=== PATIENT | female | born 1945 | race Caucasian/White ===

== ENCOUNTER 2016-10-14 21:10 | Inpatient (IN) | payer OTHER, MEDICARE ==
[~2016-10-14] VITALS: Ht 152.4 cm; Wt 80.0 kg
[~2016-10-14 21:10] MED LIST: CARV3.125 PO; CITA20TA4 PO; GABA300C3 PO; HYDR10SO PO; LIPI80TA16 PO; LISI-357 PO; LORA0.5T PO; LORTA5 PO; METF500 PO; NOVO7030P2 SQ; OXYC1SOL5 PO; PROT40TA PO; ROPI.25 PO; WALKER STANDARD
[2016-10-14] MEDS ORDERED: SODIUM CHLOR 0.9% 1000 ML INJ 1,000 ML IV ONE (21:16)
[2016-10-14] MEDS ORDERED: VANCOMYCIN INJ 1,000 MG in SODIUM CHLOR 0.9% 250 ML INJ 250 ML IV STA (21:16)
[2016-10-14] MEDS ORDERED: PIPERACIL-TAZO 4.5 GM PREMIX 100 ML IV STA (21:16)
--- NOTE | 2016-10-14 21:22 | PD ---
HPI Chief Complaint: nausea Time Seen by Provider: 21:16 Travel History International Travel<30 days: No Contact w/Intl Traveler<30days: No Traveled to known affect area: No History of Present Illness HPI 71-year-old female with history of diabetes, status post left leg BKA, presents to the ER today because she states that for about a week her left leg stump has developed an ulcer which has not been healing, has been draining fluid, and she has been nauseous and not feeling well. Her blood sugars have been fairly elevated. According to EMS, her blood sugar was read as "high". She has not vomited, denies abdominal pain, fevers, chest pains, shortness of breath, or any other issues. Modifying Factors: None Associated Signs & Symptoms: Poorly healing left leg ulcer for the past week, nausea, elevated blood sugars Risk Factors: Diabetes PFSH Past Medical History Hx Anticoagulant Therapy: Yes Arthritis: Yes Asthma: Yes Autoimmune Disease: No Anxiety: Yes Depression: Yes Heart Rhythm Problems: No Cancer: No Cardiac Catheterization: Yes Cardiovascular Problems: Yes High Cholesterol: Yes Chemotherapy: No Chest Pain: Yes Congestive Heart Failure: No COPD: No Diabetes: Yes Diminished Hearing: No Endocrine: No Gastrointestinal Disorders: Yes GERD: Yes Genitourinary: No Hiatal Hernia: No Hypertension: Yes Immune Disorder: No Musculoskeletal: Yes (RESTLESS LEG SYNDROME) Neurologic: No Psychiatric: Yes Reproductive: No Respiratory: No Integumentary: Yes (WOUND TO LEFT FOOT.) Myocardial Infarction: Yes (05/2013) Radiation Therapy: No Sickle Cell Disease: No Sleep Apnea: No Thyroid Disease: No Ulcer: No Menopausal: Yes Past Surgical History AICD: No Body Medical Devices: 2 Stents Cardiac Surgery: No Coronary Stent: Yes (X 2 - 05/2013 & 07/2013) Ear Surgery: No Endocrine Surgery: No Eye Surgery: No Genitourinary Surgery: No Gynecologic Surgery: No Insulin Pump: No Joint Replacement: No Oral Surgery: No Pacemaker: No Thoracic Surgery: No Other Surgery: Yes Social History Alcohol Use: No Tobacco Use: No Substance Use: No Allergies-Medications (Allergen,Severity, Reaction): Coded Allergies: Sulfa (Verified Allergy, Severe, Irritability/Anxiety, 10/14/16) Reported Meds & Prescriptions Reported Meds & Active Scripts Active Reported Novolog Inj (Insulin Aspart) 1,000 Unit/10 Ml Vial Unknown Dose SQ ACHS Max dose at bedtime:( )units; sugars less than 70,(0)units; sugars 150-199,(1) unit; sugars 200-249,(3) units; sugars 250-299,(5) units; sugars 300-349,(7) units; sugars greater than 349,(9) units Atorvastatin (Atorvastatin Calcium) 80 Mg Tab 80 Mg PO HS Coreg (Carvedilol) 3.125 Mg Tab 3.125 Mg PO BID Citalopram (Citalopram Hydrobromide) 10 Mg Tab 10 Mg PO DAILY Gabapentin 300 Mg Cap 300 Mg PO TID Novolin 70-30 Inj (Insulin Human Isoph/Insulin Regular) 1,000 Unit/10 Ml Vial 8 Units SQ BID Lisinopril 5 Mg Tab 5 Mg PO DAILY Lorazepam 0.5 Mg Tab 0.5 Mg PO HS Metformin (Metformin HCl) 500 Mg Tab 500 Mg PO BIDPC With meals Pantoprazole (Pantoprazole Sodium) 40 Mg Tab 40 Mg PO DAILY Requip (Ropinirole HCl) 0.25 Mg Tab 0.25 Mg PO HS Review of Systems Except as stated in HPI: all other systems reviewed are Neg Physical Exam Narrative GENERAL: Well-developed pleasant elderly white female patient currently in mild distress. Awake and oriented 3. SKIN: Focused skin assessment warm/dry. There is a 2 cm round ulcer at the distal end of the left leg stump with a small amount of yellowish drainage. Mildly tender to palpation. No underlying fluctuance. HEAD: Atraumatic. Normocephalic. EYES: Pupils equal and round. No scleral icterus. No injection or drainage. ENT: No nasal bleeding or discharge. Mucous membranes pink and moist. NECK: Trachea midline. No JVD. CARDIOVASCULAR: Regular rate and rhythm. No murmur appreciated. RESPIRATORY: No accessory muscle use. Clear to auscultation. Breath sounds equal bilaterally. GASTROINTESTINAL: Abdomen soft, non-tender, nondistended. Hepatic and splenic margins not palpable. MUSCULOSKELETAL: No obvious deformities. No clubbing. No cyanosis. No edema. NEUROLOGICAL: Awake and alert. No obvious cranial nerve deficits. Motor grossly within normal limits. Normal speech. PSYCHIATRIC: Appropriate mood and affect; insight and judgment normal. Data Data Last Documented VS Vital Signs Date Time Temp Pulse Resp B/P Pulse Ox O2 Delivery O2 Flow Rate FiO2 10/14/16 23:17 89 18 152/66 96 Room Air 10/14/16 21:30 99.1 Orders Electrocardiogram (10/14/16 21:16) Complete Blood Count With Diff (10/14/16 21:16) Comprehensive Metabolic Panel (10/14/16 21:16) Prothrombin Time / Inr (Pt) (10/14/16 21:16) Act Partial Throm Time (Ptt) (10/14/16 21:16) Lactic Acid Sepsis Protocol (10/14/16 21:16) Lipase (10/14/16 21:16) Ckmb (Isoenzyme) Profile (10/14/16 21:16) Troponin I (10/14/16 21:16) Urinalysis - C+S If Indicated (10/14/16 21:16) Blood Culture (10/14/16 21:16) Wound Culture And Gram Stain (10/14/16 21:16) Blood Glucose (10/14/16 21:16) Ecg Monitoring (10/14/16 21:16) Iv Access Insert/Monitor (10/14/16 21:16) Oximetry (10/14/16 21:16) Oxygen Administration (10/14/16 21:16) Ondansetron Inj (Zofran Inj) (10/14/16 21:30) Piperacil-Tazo 4.5 Gm Premix (Zosyn 4.5 (10/14/16 21:16) Vancomycin Inj (Vancomycin Inj) (10/14/16 21:16) Sodium Chlor 0.9% 1000 Ml Inj (Ns 1000 M (10/14/16 21:16) Tibia/Fibula (Ap/Lat) (10/14/16 21:16) Insulin Human Regular Inj (Novolin R Inj (10/14/16 22:45) Urine Culture (10/14/16 23:20) Acetamin-Hydrocod 325-5 Mg ([place] 5-325 (10/15/16 00:00) Labs Laboratory Tests Test 10/14/16 10/14/16 21:30 23:20 White Blood Count 7.0 TH/MM3 Red Blood Count 3.92 MIL/MM3 Hemoglobin 10.6 GM/DL Hematocrit 33.6 % Mean Corpuscular Volume 85.7 FL Mean Corpuscular Hemoglobin 27.1 PG Mean Corpuscular Hemoglobin 31.7 % Concent Red Cell Distribution Width 14.5 % Platelet Count 199 TH/MM3 Mean Platelet Volume 9.3 FL Neutrophils (%) (Auto) 65.3 % Lymphocytes (%) (Auto) 23.9 % Monocytes (%) (Auto) 8.7 % Eosinophils (%) (Auto) 1.1 % Basophils (%) (Auto) 1.0 % Neutrophils # (Auto) 4.6 TH/MM3 Lymphocytes # (Auto) 1.7 TH/MM3 Monocytes # (Auto) 0.6 TH/MM3 Eosinophils # (Auto) 0.1 TH/MM3 Basophils # (Auto) 0.1 TH/MM3 CBC Comment DIFF FINAL Differential Comment Prothrombin Time 10.1 SEC Prothromb Time International 0.9 RATIO Ratio Activated Partial 26.2 SEC Thromboplast Time Sodium Level 131 MEQ/L Potassium Level 3.7 MEQ/L Chloride Level 94 MEQ/L Carbon Dioxide Level 25.1 MEQ/L Anion Gap 12 MEQ/L Blood Urea Nitrogen 18 MG/DL Creatinine 1.20 MG/DL Estimat Glomerular Filtration 45 ML/MIN Rate Random Glucose 543 MG/DL Lactic Acid Level 0.9 mmol/L Calcium Level 8.2 MG/DL Total Bilirubin 0.4 MG/DL Aspartate Amino Transf 8 U/L (AST/SGOT) Alanine Aminotransferase 11 U/L (ALT/SGPT) Alkaline Phosphatase 74 U/L Total Creatine Kinase 58 U/L Troponin I LESS THAN 0.02 NG/ML Total Protein 6.7 GM/DL Albumin 2.6 GM/DL Lipase 180 U/L Urine Color LIGHT-YELLOW Urine Turbidity CLEAR Urine pH 5.0 Urine Specific [place] 1.027 Urine Protein NEG mg/dL Urine Glucose (UA) 1000 mg/dL Urine Ketones NEG mg/dL Urine Occult Blood NEG Urine Nitrite POS Urine Bilirubin NEG Urine Urobilinogen LESS THAN 2.0 MG/DL Urine Leukocyte Esterase NEG Urine RBC LESS THAN 1 /hpf Urine WBC 3 /hpf Urine Bacteria RARE /hpf Urine Mucus FEW /lpf Microscopic Urinalysis Comment CATH-CULTURE IND MDM Medical Decision Making Medical Screen Exam Complete: Yes Emergency Medical Condition: Yes Medical Record Reviewed: Yes Interpretation(s) Laboratory Tests Test 10/14/16 10/14/16 21:30 23:20 Red Blood Count 3.92 MIL/MM3 (4.00-5.30) Hemoglobin 10.6 GM/DL (11.6-15.3) Hematocrit 33.6 % (35.0-46.0) Mean Corpuscular Hemoglobin 31.7 % Concent (32.0-36.0) Monocytes (%) (Auto) 8.7 % (0.0-8.0) Sodium Level 131 MEQ/L (136-145) Chloride Level 94 MEQ/L (98-107) Creatinine 1.20 MG/DL (0.50-1.00) Estimat Glomerular Filtration 45 ML/MIN (>89) Rate Random Glucose 543 MG/DL (74-106) Calcium Level 8.2 MG/DL (8.5-10.1) Aspartate Amino Transf 8 U/L (15-37) (AST/SGOT) Troponin I LESS THAN 0.02 NG/ML (0.02-0.05) Albumin 2.6 GM/DL (3.4-5.0) Urine Glucose (UA) 1000 mg/dL (NEG) Urine Nitrite POS (NEG) Urine Bacteria RARE /hpf (NONE) Urine Mucus FEW /lpf (OCC) Last 24 hours Impressions Tibia/Fibula X-Ray 10/14/162115 Signed Impressions: Service Date/Time: Friday, October 14, 2016 21:50 - CONCLUSION: Left below knee amputation. Nonspecific edema of the stump soft tissues without an acute bony abnormality. Edward Cheng MD Differential Diagnosis Left leg ulcer, nausea, elevated blood sugarmetabolic issues versus sepsis versus osteomyelitis versus dehydration Narrative Course She does appear to have open ulcer of the left stump and underlying cellulitis without underlying osteomyelitis seen on x-ray. Lab work did not indicate significant lactate elevation or leukocytosis. IV antibiotics have been given after cultures have been drawn. Her lab work does show significant hyperglycemia and IV fluids and insulin was given. At this point, my plan would be to admit the patient for further treatment of both issues. The case was discussed with Dr. Baxter for admission. Diagnosis Primary Impression: Infection of amputation stump, left lower extremity Additional Impression: Hyperglycemia Admitting Information Admitting Physician Requests: Admit Vin Pineda MD October 14, 2016 21:22
[2016-10-14 21:28] VITALS: BP 152/66; PULSE 93; RESP 18; TEMP 99.1; O2SAT 95
[2016-10-14 21:30] VITALS: TEMP 99.1; O2SAT 100
[2016-10-14] MEDS ORDERED: ONDANSETRON HCL 4 MG/2 ML VIAL IV ONE (21:30)
[2016-10-14 21:57] LABS: AUTOMATED NEUTROPHIL # 4.6 TH/MM3 (1.8-7.7); BASOPHIL # 0.1 TH/MM3 (0-0.2); EOSINOPHIL # 0.1 TH/MM3 (0-0.4); EOSINOPHIL % 1.1 % (0.0-4.0); HEMATOCRIT 33.6 % (35.0-46.0); HEMO FLAGS DIFF FINAL; LYMPH % 23.9 % (9.0-44.0); LYMPHOCYTE # 1.7 TH/MM3 (1.0-4.8); MEAN CELL VOLUME 85.7 FL (80.0-100.0); MEAN CORPUSCULAR HEMOGLOBIN 27.1 PG (27.0-34.0); MEAN CORPUSCULAR HGB CONC 31.7 % (32.0-36.0); MONO % 8.7 % (0.0-8.0); NEUT % 65.3 % (16.0-70.0); PLATELET COUNT 199 TH/MM3 (150-450); RED BLOOD COUNT 3.92 MIL/MM3 (4.00-5.30); RED CELL DISTRIBUTION WIDTH 14.5 % (11.6-17.2)
--- NOTE | 2016-10-14 22:00 | RADRPT ---
EXAM DATE/TIME: 10/14/2016 21:50 [facility] COMPARISON: No previous studies available for comparison. INDICATIONS : Ulceration, pain at distal end of left below the knee amputaion MEDICAL HISTORY : Diabetes mellitus type II. SURGICAL HISTORY : None. ENCOUNTER: Initial ACUITY: 2 weeks PAIN SCORE: 8/10 LOCATION: Left distal lower leg FINDINGS: Patient has had previous amputation 15 cm below the knee. There is soft tissue edema of the stump. No radiopaque foreign body. No acute cortical destruction demonstrated. CONCLUSION: Left below knee amputation. Nonspecific edema of the stump soft tissues without an acute bony abnorma lity. Edward Cheng MD on October 14, 2016 at 21:57 Board Certified Radiologist. This report was verified electronically.
[2016-10-14 22:25] LABS: ALT (GPT) 11 U/L (10-53); ANION GAP 12 MEQ/L (5-15); AST (GOT) 8 U/L (15-37); BICARBONATE 25.1 MEQ/L (21.0-32.0); BLOOD UREA NITROGEN 18 MG/DL (7-18); CHLORIDE 94 MEQ/L (98-107); GLOMERULAR FILTRATION RATE 45 ML/MIN (>89); POTASSIUM 3.7 MEQ/L (3.5-5.1); SODIUM (NA) 131 MEQ/L (136-145); TOTAL BILIRUBIN ADULT 0.4 MG/DL (0.2-1.0)
[2016-10-14] MEDS ORDERED: ROPI.25 PO (22:29)
[2016-10-14] MEDS ORDERED: LORA-373 PO (22:29)
[2016-10-14] MEDS ORDERED: PANT40TA3 PO (22:29)
[2016-10-14] MEDS ORDERED: ATOR1TAB18 PO (22:29)
[2016-10-14] MEDS ORDERED: CITA10TA4 PO (22:29)
[2016-10-14] MEDS ORDERED: NOVO7030P2 SQ (22:29)
[2016-10-14] MEDS ORDERED: LISI-519 PO (22:29)
[2016-10-14] MEDS ORDERED: GABA300C5 PO (22:29)
[2016-10-14] MEDS ORDERED: METF500T PO (22:29)
[2016-10-14] MEDS ORDERED: CARV3.125 PO (22:29)
[2016-10-14] MEDS ORDERED: NOVOLOGP2 SQ (22:30)
[2016-10-14 22:34] LABS: ALKALINE PHOSPHATASE 74 U/L (45-117); CREATINE KINASE 58 U/L (26-192)
[2016-10-14 22:35] LABS: APTT (PATIENT) 26.2 SEC (24.3-30.1); INTERNATIONAL NORMALIZED RATIO 0.9 RATIO; PROTHROMBIN TIME - PATIENT 10.1 SEC (9.8-11.6)
[2016-10-14] MEDS ORDERED: INSULIN HUMAN REGULAR 1,000 UNITS/10 ML VIAL IV PUSH ONE (22:45)
[2016-10-14 23:17] VITALS: BP 152/66; PULSE 89; RESP 18; O2SAT 96
[2016-10-14 23:40] LABS: BACTERIA, URINE RARE /hpf; BLOOD, URINE NEG (NEG); GLUCOSE,URINE 1000 mg/dL (NEG); KETONE, URINE NEG (NEG); MUCUS URINE FEW /lpf (OCC); URINE COLOR LIGHT-YELLOW (YELLW/STRAW)
[2016-10-14 23:43] LABS: COMMENT (UR) CATH-CULTURE IND; CULTURE IF INDICATED CATH CULTURE IND; NITRITE,URINE POS (NEG)
[2016-10-15] MEDS ORDERED: ACETAMINOPHEN/HYDROcodone 325 MG/5 MG TAB PO ONE
[2016-10-15] MEDS ORDERED: SODIUM CHLOR 0.9% 1000 ML INJ 1,000 ML IV SCH (01:17)
[2016-10-15] MEDS ORDERED: SODIUM CHLORIDE 0.9% FLUSH 10 ML FLUSH IV FLUSH PRN (01:30)
[2016-10-15] MEDS ORDERED: MORPHINE SULFATE 4 MG/ML INJ IV PRN (01:30)
[2016-10-15] MEDS ORDERED: DEXTROSE 50% IN WATER 50 ML VIAL(D50) IV PRN (01:30)
[2016-10-15] MEDS ORDERED: BISACODYL 10 MG SUPP RECTAL PRN (01:30)
[2016-10-15] MEDS ORDERED: ACETAMINOPHEN/HYDROcodone 325 MG/5 MG TAB PO PRN (01:30)
[2016-10-15] MEDS ORDERED: GLUCAGON 1 MG/ML VIAL OTHER PRN (01:30)
[2016-10-15] MEDS ORDERED: Vancomycin Consult Pharmacy 1 EA OTHER SCH (01:30)
[2016-10-15] MEDS ORDERED: ONDANSETRON HCL 4 MG/2 ML VIAL IVP PRN (01:30)
[2016-10-15] MEDS ORDERED: ACETAMINOPHEN 325 MG TAB PO PRN (01:30)
[2016-10-15 02:02] VITALS: BP 122/58; PULSE 85; RESP 18; TEMP 99.2; O2SAT 95
--- NOTE | 2016-10-15 02:19 | HHI.HP ---
[facility]Staff Admission Diagnosis left leg stump infection/hyperglycemia Diagnoses: (1) Infection of amputation stump, left lower extremity Diagnosis: Principal (2) UTI (urinary tract infection) Diagnosis: Principal (3) DM (diabetes mellitus) Diagnosis: Principal (4) WILLIE (acute kidney injury) Diagnosis: Principal Travel History International Travel<30 Days: No Contact w/Intl Traveler <30 Da: No Traveled to Known Affected Are: No History of Present Illness This is a 71-year-old female with PMH of Anxiety, Depression, HTN, Hyperlipidemia, PVD, h/o Left BKA and Phantom Leg Pain who was brought to the ER by EMS w/ complaints of left stump pain and drainage from wound x2 wks. States she has been unable to use prosthesis due to pain. Denies fever, chills or other symptoms. On arrival, BP 122/66, HR 93, O2 sat 95% on RA, Temp 99.1. WBC normal. Creatinine 1.20, previously 0.77 on 03/06/15. BS 543. Lactic Acid normal. Troponin negative. UA with mild UTI. Tibia/Fibula X-ray showing left below knee amputation, nonspecific edema of stump soft tissues without acute bony abnormality. S/p Wound/Blood Cultures in ER and IV Zosyn. Review of Systems Except as stated in HPI: all other systems reviewed are Neg ROS: 14 point review of systems otherwise negative. Past Family Social History Past Medical History PMH: Anxiety, Depression, HTN, Hyperlipidemia, PVD, h/o Left BKA and Phantom Leg Pain Past Surgical History PAST SURGICAL HISTORY: Cardiac Stents, Left BKA Allergies: Coded Allergies: Sulfa (Verified Allergy, Severe, Irritability/Anxiety, 10/14/16) Family History PAST FAMILY HISTORY: Reviewed. No h/o DM or CAD Social History PAST SOCIAL HISTORY: Negative for alcohol, tobacco or drugs. Physical Exam Vital Signs Vital Signs Date Time Temp Pulse Resp B/P Pulse Ox O2 Delivery O2 Flow Rate FiO2 10/15/16 02:02 99.2 85 18 122/58 95 Room Air 10/14/16 23:17 89 18 152/66 96 Room Air 10/14/16 22:11 18 10/14/16 21:30 100 Room Air 10/14/16 21:30 99.1 100 Room Air 10/14/16 21:28 99.1 93 18 152/66 95 Physical Exam PE: GENERAL: Middle-aged white female in no acute distress. HEENT: PERRLA, EOMI. No scleral icterus or conjunctival pallor. No lid lag or facial droop. CARDIOVASCULAR: Regular rate and rhythm. No obvious murmurs to auscultation. No chest tenderness to palpation. RESPIRATORY: No obvious rhonchi or wheezing. Clear to auscultation. Breath sounds equal bilaterally. GASTROINTESTINAL: Abdomen soft, non-tender, nondistended. BS normal. MUSCULOSKELETAL: Left stump intact, small ulcer at distal region of stump, serous drainage, mild surrounding erythema. NEUROLOGICAL: Awake, alert and oriented x4. No focal neurologic deficits. Moving both upper and lower extremities spontaneously. Laboratory Laboratory Tests Test 10/14/16 10/14/16 21:30 23:20 White Blood Count 7.0 Red Blood Count 3.92 Hemoglobin 10.6 Hematocrit 33.6 Mean Corpuscular Volume 85.7 Mean Corpuscular Hemoglobin 27.1 Mean Corpuscular Hemoglobin 31.7 Concent Red Cell Distribution Width 14.5 Platelet Count 199 Mean Platelet Volume 9.3 Neutrophils (%) (Auto) 65.3 Lymphocytes (%) (Auto) 23.9 Monocytes (%) (Auto) 8.7 Eosinophils (%) (Auto) 1.1 Basophils (%) (Auto) 1.0 Neutrophils # (Auto) 4.6 Lymphocytes # (Auto) 1.7 Monocytes # (Auto) 0.6 Eosinophils # (Auto) 0.1 Basophils # (Auto) 0.1 CBC Comment DIFF FINAL Differential Comment Prothrombin Time 10.1 Prothromb Time International 0.9 Ratio Activated Partial 26.2 Thromboplast Time Sodium Level 131 Potassium Level 3.7 Chloride Level 94 Carbon Dioxide Level 25.1 Anion Gap 12 Blood Urea Nitrogen 18 Creatinine 1.20 Estimat Glomerular Filtration 45 Rate Random Glucose 543 Lactic Acid Level 0.9 Calcium Level 8.2 Total Bilirubin 0.4 Aspartate Amino Transf 8 (AST/SGOT) Alanine Aminotransferase 11 (ALT/SGPT) Alkaline Phosphatase 74 Total Creatine Kinase 58 Troponin I LESS THAN 0.02 Total Protein 6.7 Albumin 2.6 Lipase 180 Urine Color LIGHT-YELLOW Urine Turbidity CLEAR Urine pH 5.0 Urine Specific [place] 1.027 Urine Protein NEG Urine Glucose (UA) 1000 Urine Ketones NEG Urine Occult Blood NEG Urine Nitrite POS Urine Bilirubin NEG Urine Urobilinogen LESS THAN 2.0 Urine Leukocyte Esterase NEG Urine RBC LESS THAN 1 Urine WBC 3 Urine Bacteria RARE Urine Mucus FEW Microscopic Urinalysis Comment CATH-CULTURE IND Date/Time Procedure Status Source Growth 10/14/16 23:20 Urine Culture Received Urine Catheterized Urine Pending 10/14/16 22:06 Gram Stain Received Wound Leg Pending 10/14/16 22:06 Wound Culture Received Wound Leg Pending 10/14/16 21:40 Aerobic Blood Culture Received Blood Peripheral Pending 10/14/16 21:40 Anaerobic Blood Culture Received Blood Peripheral Pending Result Diagram: 10/14/16212910/14/162129 Assessment and Plan Problem List: (1) Infection of amputation stump of left lower extremity ICD Code: T87.44 Status: Acute (2) UTI (urinary tract infection) ICD Code: N39.0 Status: Acute (3) WILLIE (acute kidney injury) ICD Code: N17.9 Status: Acute (4) DM (diabetes mellitus) ICD Code: E11.9 Status: Chronic Assessment and Plan A/P: 1. Stump Infection: h/o Left BKA, now w/ ongoing ulceration x2 wks, mild surrounding erythema and serous drainage. Afebrile, no leukocytosis. S/p Wound /Blood Cultures and IV Zosyn in ER. Follow up cultures, continue w/ Vanc/ Cefepime. Consult Wound Management. 2. UTI: U/a w/ mild UTI, Urine Culture pending, will follow. Pt does report dysuria and foul-smelling urine, continue w/ IV Abx as above, IVF for hydration. 3. WILLIE: Creatinine 1.20, previously 0.77 on 03/06/15. U/a positive for UTI, continue w/ IV Abx, IVF for hydration, repeat labs in am. 4. DM: Uncontrolled. BS 543 on arrival. Hgb A1c 02/22/15 15.5. Resume home medications, recheck Hgb A1c. Sliding Scale w/ Accu-Cheks. 5. DVT Prophylaxis: SCD/Teds. 6. Social work for d/c planning as needed. 7. Case discussed w/ ER physician at length. Carito Baxter MD October 15, 2016 02:19
[2016-10-15 02:27] VITALS: BP 128/64; PULSE 88; RESP 18; TEMP 99; O2SAT 94
[2016-10-15 05:03] LABS: AUTOMATED NEUTROPHIL # 5.8 TH/MM3 (1.8-7.7); BASOPHIL % 0.6 % (0.0-2.0); EOSINOPHIL # 0.1 TH/MM3 (0-0.4); EOSINOPHIL % 1.5 % (0.0-4.0); HEMATOCRIT 29.9 % (35.0-46.0); HEMO FLAGS DIFF FINAL; LYMPH % 18.7 % (9.0-44.0); LYMPHOCYTE # 1.5 TH/MM3 (1.0-4.8); MEAN CELL VOLUME 83.8 FL (80.0-100.0); MEAN CORPUSCULAR HEMOGLOBIN 27.4 PG (27.0-34.0); MEAN CORPUSCULAR HGB CONC 32.6 % (32.0-36.0); MONO % 8.4 % (0.0-8.0); NEUT % 70.8 % (16.0-70.0); PLATELET COUNT 191 TH/MM3 (150-450); RED BLOOD COUNT 3.57 MIL/MM3 (4.00-5.30); WHITE BLOOD COUNT 8.2 TH/MM3 (4.0-11.0)
[2016-10-15 05:22] LABS: ALT (GPT) 8 U/L (10-53); ANION GAP 9 MEQ/L (5-15); AST (GOT) 11 U/L (15-37); BICARBONATE 24.8 MEQ/L (21.0-32.0); BLOOD UREA NITROGEN 15 MG/DL (7-18); CHLORIDE 102 MEQ/L (98-107); GLOMERULAR FILTRATION RATE 59 ML/MIN (>89); POTASSIUM 3.8 MEQ/L (3.5-5.1); SODIUM (NA) 136 MEQ/L (136-145)
[2016-10-15 05:34] LABS: ALKALINE PHOSPHATASE 68 U/L (45-117); TOTAL BILIRUBIN ADULT 0.4 MG/DL (0.2-1.0)
[2016-10-15] MEDS ORDERED: INSULIN ASPART SUPPLEMENTAL SCALE SQ SCH (07:00)
[2016-10-15 07:52] VITALS: BP 130/60; PULSE 87; RESP 17; TEMP 98.7; O2SAT 90
[2016-10-15] MEDS ORDERED: INSULIN HUMAN NPH/R 70/30 1,000 UNITS/10 ML VIAL SQ SCH ×5 (09:00→17:00)
[2016-10-15] MEDS: CITALOPRAM HYDROBROMIDE 20 MG TAB PO SCH (09:03)
[2016-10-15] MEDS: GABAPENTIN 300 MG CAP PO SCH ×3 (09:03→18:15)
[2016-10-15] MEDS: CARVEDILOL 3.125 MG TAB PO SCH ×2 (09:04→21:14)
[2016-10-15] MEDS: CEFEPIME INJ 1,000 MG in SODIUM CHLORIDE 0.9% INJ 100 ML IV SCH ×2 (09:04→21:14)
[2016-10-15] MEDS: PANTOPRAZOLE SOD 40 MG DELAYED RELEASE TAB PO SCH (09:04)
[2016-10-15] MEDS: SODIUM CHLORIDE 0.9% FLUSH 10 ML FLUSH IV FLUSH SCH ×2 (09:04→21:00)
[2016-10-15] MEDS ORDERED: INSULIN HUMAN NPH/R 70/30 1,000 UNITS/10 ML VIAL SQ ONE (09:08)
[2016-10-15] MEDS: metFORMIN HCL 500 MG TAB PO SCH ×2 (11:18→18:15)
[2016-10-15 11:40] VITALS: BP 123/58; PULSE 73; RESP 17; TEMP 98.8; O2SAT 91
[2016-10-15] MEDS: INSULIN ASPART SUPPLEMENTAL SCALE SQ SCH ×3 (12:39→21:00)
[2016-10-15 13:32] LABS: HEMOGLOBIN A1a 1.9 %; HEMOGLOBIN Ao 67.5 %; HEMOGLOBIN F 4.2 %; HEMOGLOBIN LA1C 3.6 %
[2016-10-15 15:37] VITALS: BP 128/59; PULSE 84; RESP 17; TEMP 99.6; O2SAT 90
--- NOTE | 2016-10-15 15:49 | HHI.PR ---
Subjective Remarks Follow up for left BKA stump site infection and uncontrolled diabetes. The patient reports continued pain and swelling of the left lower extremity. She reports she was recently fitted with a new prosthesis 2-3weeks ago but it was very tight and she started to notice an abrasion that turned into an ulcer at the distal stump site 1 week ago. She switched back to her old prosthesis that she feels fits her more comfortably. Overnight she believes the swelling has improved however still having some white-yellow drainage from the wound. Denies fevers or chills. Also the patient reports taking Novolin 70/30 8u bid at home along with SSI prior to meals, and her blood sugars are usually around 160-180. She denies any other medical complaints at this time. Objective Vitals Vital Signs Date Time Temp Pulse Resp B/P Pulse Ox O2 Delivery O2 Flow Rate FiO2 10/15/16 11:40 98.8 73 17 123/58 91 10/15/16 07:52 98.7 87 17 130/60 90 10/15/16 02:27 99.0 88 18 128/64 94 10/15/16 02:02 99.2 85 18 122/58 95 Room Air 10/14/16 23:17 89 18 152/66 96 Room Air 10/14/16 22:11 18 10/14/16 21:30 100 Room Air 10/14/16 21:30 99.1 100 Room Air 10/14/16 21:28 99.1 93 18 152/66 95 Result Diagram: 10/15/16 0420 10/15/16 0420 Imaging Last Impressions Tibia/Fibula X-Ray 10/14/162115 Signed Impressions: Service Date/Time: Friday, October 14, 2016 21:50 - CONCLUSION: Left below knee amputation. Nonspecific edema of the stump soft tissues without an acute bony abnormality. Edward Chneg MD Objective Remarks GENERAL: Well-nourished, well-developed very pleasant female patient in [facility]. SKIN: Warm and dry. No rash. Left BKA stump site with quarter-sized scabbed ulcer with central drainage white-yellow pus; surrounding warmth and erythema limited to the distal stump. HEENT: Normocephalic. Atraumatic. Pupils equal and round. Mucous membranes pink and moist. NECK: Supple. Trachea midline. CARDIOVASCULAR: Regular rate and rhythm. S1, S2 noted. No murmur appreciated. RESPIRATORY: No accessory muscle use. Clear to auscultation. Breath sounds equal bilaterally. GASTROINTESTINAL: Abdomen soft, non-tender, nondistended. Normoactive bowel sounds x4. MUSCULOSKELETAL: Left BKA. Extremities without clubbing, cyanosis, or edema. NEUROLOGICAL: Awake and alert. No obvious cranial nerve deficits. Motor grossly within normal limits. Normal speech. PSYCHIATRIC: Appropriate mood and affect; insight and judgment normal. Medications and IVs Current Medications Medications (Trade) Dose Ordered Sig/Piper Route Start Time Stop Time Status Last Admin (D50w (Vial) Inj) 50 ml UNSCH PRN IV 10/15/16 01:30 Glucagon 1 mg 1 mg UNSCH PRN OTHER 10/15/16 01:30 Pharmacy Profile Note 0 ml @ 0 mls/hr UNSCH OTHER 10/15/16 01:30 (Maxipime Inj/NS Inj) 100 ml @ 200 mls/hr Q12H IV 10/15/16 09:00 10/15/16 09:04 (NS Flush) 2 ml UNSCH PRN IV FLUSH 10/15/16 01:30 (NS Flush) 2 ml BID IV FLUSH 10/15/16 09:00 10/15/16 09:04 (Zofran Inj) 4 mg Q6H PRN IVP 10/15/16 01:30 (Dulcolax Supp) 10 mg DAILY PRN RECTAL 10/15/16 01:30 (Tylenol) 650 mg Q6H PRN PO 10/15/16 01:30 ([place] 5-325 Mg) 1 tab Q4H PRN PO 10/15/16 01:30 (Morphine Inj) 2 mg Q3H PRN IV 10/15/16 01:30 (Lipitor) 80 mg HS PO 10/15/16 21:00 (Coreg) 3.125 mg BID PO 10/15/16 09:00 10/15/16 09:04 (CeleXA) 10 mg DAILY PO 10/15/16 09:00 10/15/16 09:03 (Neurontin) 300 mg TID PO 10/15/16 09:00 10/15/16 15:31 (Ativan) 0.5 mg HS PO 10/15/16 21:00 (Protonix) 40 mg DAILY PO 10/15/16 09:00 10/15/16 09:04 (Requip) 0.25 mg HS PO 10/15/16 21:00 (Glucophage) 500 mg BIDPC PO 10/15/16 10:00 10/15/16 11:18 (NovoLIN 70/30 INJ) 8 units DAILY@08 SQ 10/16/16 08:00 Insulin Human Isoph/Insulin Regular 8 units 8 units DAILY@17 SQ 10/15/16 17:00 (Vancomycin Inj/ NS 250 ml Inj) 262.5 ml @ 250 mls/hr Q24H IV 10/15/16 20:00 Miscellaneous Information SPECIFIC LAB TO BE SOLIS... ONCE ONCE .XX 10/17/16 19:45 10/17/16 19:46 A/P Problem List: (1) Infection of amputation stump of left lower extremity ICD Code: T87.44 Status: Acute (2) UTI (urinary tract infection) ICD Code: N39.0 Status: Acute (3) WILLIE (acute kidney injury) ICD Code: N17.9 Status: Acute (4) DM (diabetes mellitus) ICD Code: E11.9 Status: Chronic Assessment and Plan 71-year-old female with PMH of Anxiety, Depression, HTN, Hyperlipidemia, PVD, h /o Left BKA and Phantom Leg Pain who was brought to the ER by EMS w/ complaints of left stump pain and drainage from wound x1week Left BKA Stump Infection, concern for Abscess: h/o Left BKA [address] Rosenbaum , now w/ ongoing ulceration, surrounding erythema/drainage. Afebrile, no leukocytosis. Left Tib/Fib xray shows nonspecific edema of stump soft tissues without acute bony abnormality. Wound/Blood Cultures collected and pending. Continue IV Vanco/Cefepime. Consult Wound Management. Consulted Dr. Rosenbaum, discussed with Dr. Gonzalez, recommends obtaining LLE MRI, and keeping NPO after midnight for possible procedure tomorrow. UTI: U/a w/ mild UTI. Pt does report dysuria and foul-smelling urine, continue w/ IV Abx as above, IVF for hydration. Monitor urine culture. WILLIE: Creatinine 1.20, previously 0.77 on 03/06/15. Continue IVF for hydration, repeat labs show improvement with Cr 0.94. Monitor BMP. Uncontrolled DM with Hyperglycemia: BS 543 on arrival. Hgb A1c 02/22/15 15.5, repeat HgbA1c 17.5. Resume home Novolin 70/30 however increased dosing from 8u bid to 10u bid. Continue Sliding Scale w/ Accu-Cheks. Consult director of business development and wool presser. DVT Prophylaxis: SCD/Teds. Jia Conley PA-C October 15, 2016 3:49 pm
--- NOTE | 2016-10-15 16:20 | EKG ---
Date Performed: 10/14/2016 Time Performed: 22:04:51 PTAGE: 71 years EKG: Sinus rhythm MINIMAL VOLTAGE CRITERIA FOR LVH, CONSIDER NORMAL VARIANT SEPTAL MYOCARDIAL INFARCTION ABNORMAL ECG PREVIOUS TRACING : 02/22/2015 18.19 Compared to prior tracing no significant change DOCTOR: Chloe Souas Interpretating Date/Time 10/15/2016 16:18:34
[2016-10-15] MEDS ORDERED: GADODIAMIDE PF 287 MG/ML 5 ML VIAL (for RAD MRI) IV ONE (17:38)
--- NOTE | 2016-10-15 18:48 | RADRPT ---
EXAM DATE/TIME: 10/15/2016 17:16 [facility] COMPARISON: TIBIA/FIBULA LEFT (AP/LAT), October 14, 2016, 21:50. INDICATIONS : Abscess. CONTRAST: 12 cc Omniscan (gadodiamide) IV MEDICAL HISTORY : Cardiovascular disease Diabetes mellitus type 2. SURGICAL HISTORY : Coronary artery stent. Left BKA ENCOUNTER: Initial ACUITY: 1 week PAIN SCORE: 5/10 LOCATION: Left stump TECHNIQUE: Multiplanar multisequence MRI examination of the lower leg was performed with and without contrast. FINDINGS: There appears to be edema seen at the anterior distal aspect of the stump. On the postcontrast image s, there appears to be a focal fluid collection measuring approximately 3.8 cm in transverse dimensio n, 1.7 cm in AP dimension and extending over a 3.8 cm length. This is concerning for a soft tissue a bscess. This does extend to abut the anterior margin of the remaining distal tibia. There appears t o be some susceptibility artifact in this region which is likely from small flecks of metal. There i s some very minimal increased signal within the distal tibia on the T2 weighted images. The marrow s ignal appears normal on the T1 weighted images. There does appear to be edema seen throughout the ross bcutaneous tissues. CONCLUSION: Complex appearing fluid collection seen in the anterior distal soft tissues at the stump following a below the knee amputation. This is concerning for a soft tissue abscess. This appears to abut the d istal anterior aspect of the remaining tibia but involvement of the bony structures is not clearly co nfirmed. Edward Howard MD on October 15, 2016 at 18:13 Board Certified Radiologist. This report was verified electronically.
[2016-10-15] MEDS ORDERED: VANCOMYCIN INJ 1,250 MG in SODIUM CHLOR 0.9% 250 ML INJ 250 ML IV SCH (20:00)
[2016-10-15] MEDS: LORazepam 0.5 MG TAB PO SCH (21:00)
[2016-10-15] MEDS: ATORVASTATIN 80 MG TAB PO SCH (21:14)
[2016-10-15 23:00] VITALS: BP 111/58; PULSE 84; RESP 18; TEMP 99.4; O2SAT 90
[2016-10-16 04:51] VITALS: BP 118/57; PULSE 85; RESP 16; TEMP 98; O2SAT 94
[2016-10-16 05:51] LABS: AUTOMATED NEUTROPHIL # 4.7 TH/MM3 (1.8-7.7); BASOPHIL # 0.1 TH/MM3 (0-0.2); BASOPHIL % 1.2 % (0.0-2.0); EOSINOPHIL # 0.2 TH/MM3 (0-0.4); EOSINOPHIL % 2.7 % (0.0-4.0); HEMO FLAGS DIFF FINAL; LYMPH % 19.6 % (9.0-44.0); LYMPHOCYTE # 1.4 TH/MM3 (1.0-4.8); MEAN CELL VOLUME 84.5 FL (80.0-100.0); MEAN CORPUSCULAR HEMOGLOBIN 27.2 PG (27.0-34.0); MEAN CORPUSCULAR HGB CONC 32.2 % (32.0-36.0); MONO % 9.3 % (0.0-8.0); NEUT % 67.2 % (16.0-70.0); PLATELET COUNT 205 TH/MM3 (150-450); RED BLOOD COUNT 3.55 MIL/MM3 (4.00-5.30); RED CELL DISTRIBUTION WIDTH 14.2 % (11.6-17.2); WHITE BLOOD COUNT 7.1 TH/MM3 (4.0-11.0)
[2016-10-16 06:06] LABS: POTASSIUM 4.1 MEQ/L (3.5-5.1)
[2016-10-16] MEDS: INSULIN ASPART SUPPLEMENTAL SCALE SQ SCH ×4 (06:38→21:00)
[2016-10-16 07:59] VITALS: BP 112/59; PULSE 79; RESP 19; TEMP 98.6; O2SAT 92
[2016-10-16] MEDS ORDERED: INSULIN HUMAN NPH 1,000 UNITS/10 ML VIAL SQ ONE (08:00)
[2016-10-16] MEDS ORDERED: INSULIN HUMAN NPH/R 70/30 1,000 UNITS/10 ML VIAL SQ SCH ×3 (08:00→17:00)
[2016-10-16] MEDS: CITALOPRAM HYDROBROMIDE 20 MG TAB PO SCH (08:10)
[2016-10-16] MEDS: PANTOPRAZOLE SOD 40 MG DELAYED RELEASE TAB PO SCH (08:11)
[2016-10-16] MEDS: CARVEDILOL 3.125 MG TAB PO SCH ×2 (08:11→23:17)
[2016-10-16] MEDS: CEFEPIME INJ 1,000 MG in SODIUM CHLORIDE 0.9% INJ 100 ML IV SCH ×2 (08:11→23:19)
[2016-10-16] MEDS: metFORMIN HCL 500 MG TAB PO SCH ×2 (08:11→17:47)
[2016-10-16] MEDS: GABAPENTIN 300 MG CAP PO SCH ×2 (08:11→17:47)
[2016-10-16] MEDS: SODIUM CHLORIDE 0.9% FLUSH 10 ML FLUSH IV FLUSH SCH ×2 (08:12→21:00)
--- NOTE | 2016-10-16 09:21 | HHI.PR ---
Subjective Remarks Follow up for left BKA stump abscess and uncontrolled diabetes. The patient reports continued left stump pain and swelling, minimally improved. Still with drainage from the wound. Denies fevers/chills. Discussed again her uncontrolled diabetes with HgbA1c of 17. The patient admits she has been dealing with some stress with her neighbors therefore she has been drinking more soda recently. She admits her blood sugars have been over 500 at times despite being compliant with her metformin 500mg bid and Novolin 70/30 8u bid and SSI. Objective Vitals Vital Signs Date Time Temp Pulse Resp B/P Pulse Ox O2 Delivery O2 Flow Rate FiO2 10/16/16 07:59 98.6 79 19 112/59 92 10/16/16 04:51 98.0 85 16 118/57 94 10/15/16 23:00 99.4 84 18 111/58 90 10/15/16 21:21 18 10/15/16 21:21 18 10/15/16 15:37 99.6 84 17 128/59 90 10/15/16 11:40 98.8 73 17 123/58 91 I/O 10/15/16 10/15/16 10/15/16 10/16/16 10/16/16 10/16/16 07:00 15:00 23:00 07:00 15:00 23:00 Intake Total 360 ml Balance 360 ml Intake Oral 360 ml # Voids 3 1 Result Diagram: 10/16/16 0510 10/16/16 0510 Imaging Last Impressions Lower Extremity MRI 10/15/16 0000 Signed Impressions: Service Date/Time: Saturday, October 15, 2016 17:16 - CONCLUSION: Complex appearing fluid collection seen in the anterior distal soft tissues at the stump following a below the knee amputation. This is concerning for a soft tissue abscess. This appears to abut the distal anterior aspect of the remaining tibia but involvement of the bony structures is not clearly confirmed. Edward Howard MD Tibia/Fibula X-Ray 10/14/162115 Signed Impressions: Service Date/Time: Friday, October 14, 2016 21:50 - CONCLUSION: Left below knee amputation. Nonspecific edema of the stump soft tissues without an acute bony abnormality. Edward Cheng MD Objective Remarks GENERAL: Well-nourished, well-developed very pleasant female patient in [facility]. SKIN: Warm and dry. No rash. Left BKA stump site with quarter-sized scabbed ulcer with central drainage white-yellow pus; surrounding warmth and erythema limited to the distal stump. Right toe with small scabbed ulcer. HEENT: Normocephalic. Atraumatic. Pupils equal and round. Mucous membranes pink and moist. NECK: Supple. Trachea midline. CARDIOVASCULAR: Regular rate and rhythm. S1, S2 noted. No murmur appreciated. RESPIRATORY: No accessory muscle use. Clear to auscultation. Breath sounds equal bilaterally. GASTROINTESTINAL: Abdomen soft, non-tender, nondistended. Normoactive bowel sounds x4. MUSCULOSKELETAL: Left BKA. Extremities without clubbing, cyanosis, or edema. NEUROLOGICAL: Awake and alert. No obvious cranial nerve deficits. Motor grossly within normal limits. Normal speech. PSYCHIATRIC: Appropriate mood and affect; insight and judgment normal. Medications and IVs Current Medications Medications (Trade) Dose Ordered Sig/Piper Route Start Time Stop Time Status Last Admin (D50w (Vial) Inj) 50 ml UNSCH PRN IV 10/15/16 01:30 Glucagon 1 mg 1 mg UNSCH PRN OTHER 10/15/16 01:30 Pharmacy Profile Note 0 ml @ 0 mls/hr UNSCH OTHER 10/15/16 01:30 (Maxipime Inj/NS Inj) 100 ml @ 200 mls/hr Q12H IV 10/15/16 09:00 10/16/16 08:11 (NS Flush) 2 ml UNSCH PRN IV FLUSH 10/15/16 01:30 (NS Flush) 2 ml BID IV FLUSH 10/15/16 09:00 10/16/16 08:12 (Zofran Inj) 4 mg Q6H PRN IVP 10/15/16 01:30 (Dulcolax Supp) 10 mg DAILY PRN RECTAL 10/15/16 01:30 (Tylenol) 650 mg Q6H PRN PO 10/15/16 01:30 (Corea 5-325 Mg) 1 tab Q4H PRN PO 10/15/16 01:30 10/15/16 18:27 (Morphine Inj) 2 mg Q3H PRN IV 10/15/16 01:30 10/15/16 20:06 (Lipitor) 80 mg HS PO 10/15/16 21:00 10/15/16 21:14 (Coreg) 3.125 mg BID PO 10/15/16 09:00 10/16/16 08:11 (CeleXA) 10 mg DAILY PO 10/15/16 09:00 10/16/16 08:10 (Neurontin) 300 mg TID PO 10/15/16 09:00 10/16/16 08:11 (Ativan) 0.5 mg HS PO 10/15/16 21:00 10/15/16 21:00 (Protonix) 40 mg DAILY PO 10/15/16 09:00 10/16/16 08:11 Ropinirole HCl 0.25 mg 0.25 mg HS PO 10/15/16 21:00 10/15/16 21:14 (Vancomycin Inj/ NS 250 ml Inj) 262.5 ml @ 250 mls/hr Q24H IV 10/15/16 20:00 10/15/16 20:06 Miscellaneous Information SPECIFIC LAB TO BE SOLIS... ONCE ONCE .XX 10/17/16 19:45 10/17/16 19:46 (NovoLIN 70/30 INJ) 10 units DAILY@17 SQ 10/15/16 17:00 10/15/16 18:22 (NovoLIN 70/30 INJ) 10 units DAILY@08 SQ 10/16/16 08:00 (Glucophage) 1,000 mg BIDPC PO 10/16/16 09:00 UNV A/P Problem List: (1) Infection of amputation stump of left lower extremity ICD Code: T87.44 Status: Acute (2) UTI (urinary tract infection) ICD Code: N39.0 Status: Acute (3) WILLIE (acute kidney injury) ICD Code: N17.9 Status: Acute (4) DM (diabetes mellitus) ICD Code: E11.9 Status: Chronic Assessment and Plan 71-year-old female with PMH of Anxiety, Depression, HTN, Hyperlipidemia, PVD, h /o Left BKA and Phantom Leg Pain who was brought to the ER by EMS w/ complaints of left stump pain and drainage from wound x1week Left BKA Stump Abscess: in a Diabetic patient. H/o Left BKA [address] Rosenbaum, now w/ ongoing ulceration, surrounding erythema, purulent drainage. Afebrile, no leukocytosis. Left Tib/Fib xray shows nonspecific edema of stump soft tissues without acute bony abnormality. LLE MRI shows complex appearing fluid collection at stump concerning for soft tissue abscess; no obvious bony involvement. Preliminary Wound Cultures with group B strep. Blood cultures with NGTD. Continue IV Vanco/Cefepime. Consult Wound Management. Consulted Dr. Rosenbaum, discussed with Dr. Gonzalez, keep NPO for possible procedure. UTI: U/a w/ mild UTI. Pt does report dysuria and foul-smelling urine, continue w/ IV Abx as above, IVF for hydration. Monitor urine culture, preliminary with gram negative stefano. WILLIE: Creatinine 1.20, previously 0.77 on 03/06/15. Continue IVF for hydration, repeat labs show improvement with Cr 0.94. Monitor BMP. Severe Uncontrolled DM with Hyperglycemia: BS 543 on arrival. HgbA1c 17.5. Resume home Novolin 70/30 however increased dosing from 8u bid to 12u bid. Increased patient's Metformin to 1000mg bid. Continue Sliding Scale w/ Accu- Cheks. Consult certified adapted physical educator and hyperbaric tech. Extensively counseled on blood glucose control. DVT Prophylaxis: SCD/Teds. Avoid chemical prophylaxis with upcoming procedure. Discharge Planning Admit to inpatient with diabetic left BKA stump abscess. Likely going to OR. Jia Conley PA-C October 16, 2016 9:21 am
[2016-10-16] MEDS ORDERED: SODIUM CHLOR 0.9% 1000 ML INJ 1,000 ML IV SCH ×2 (12:00→17:15)
[2016-10-16] MEDS ORDERED: SODIUM CHLOR 0.9% 250 ML INJ 500 ML IV ONE (12:00)
[2016-10-16] MEDS ORDERED: ONDANSETRON HCL 4 MG/2 ML VIAL IV PUSH ONE (12:00)
[2016-10-16] MEDS ORDERED: PHENYLEPH/NS 1000 MCG/10 ML SYR IV ONE (12:00)
[2016-10-16] MEDS ORDERED: ePHEDrine/NS 25 MG/5 ML SYR IV ONE (12:00)
[2016-10-16] MEDS ORDERED: PROPOFOL 200 MG/20 ML AMP IV ONE (12:00)
--- NOTE | 2016-10-16 12:00 | MB ---
cc: EDWIN BURNETT M.D. DATE OF CONSULTATION: 10/16/2016 REASON FOR CONSULTATION: Left below-knee amputation stump infection. HISTORY A 71 year old female with a past history diabetes mellitus and left below-knee amputation stump. She was brought to the emergency room by EMS ambulance complaining of the left stump pain and drainage for two weeks duration. She has evidence of infection, purulence and abscess in this region. She thinks it is from using the prosthesis. She denies fever or chills. She was stable upon admission. Orthopedic surgery has been consulted for further evaluation and management. She has phantom stump limb pain which is somewhat chronic. PAST MEDICAL HISTORY: Positive for: 1. Diabetes mellitus. 2. Urinary tract infection. 3. Renal insufficiency. 4. Heart disease. 5. Cardiac stenting. 6. Hyperlipidemia. 7. Depression/anxiety. 8. Peripheral vascular disease. FAMILY HISTORY: Reviewed. Noncontributory. SOCIAL HISTORY: No tobacco, alcohol or drug use. REVIEW OF SYSTEMS: Negative for 12 systems other than in the HPI. PHYSICAL EXAMINATION: VITAL SIGNS: Temperature 99.1, pulse 93, respirations 18, blood pressure 150/60. General: The patient is awake, alert, in no acute distress. HEENT: Normocephalic, atraumatic. Pupils equal, round, extraocular muscles intact. Neck: Supple. Lungs: Clear. Abdomen: Soft, nontender. Extremities: Left below-knee amputation stump examined. There is evidence of an eschar with fluctuance, purulence and drainage. LABORATORY DATA: White blood cell count is 7, hemoglobin is 10, hematocrit 33. Glucose 543. Creatinine 1.2. I did review the MRI which shows areas of abscess along the left below-knee amputation stump. IMPRESSION: The patient is a 71 year-old female with history of diabetes mellitus, peripheral vascular disease, history of left below-knee amputation with infection along the stump. She has severe hypoglycemia, poorly controlled diabetes mellitus, area of abscess upon MRI. PLAN: Discussed the diagnosis and treatment options with the patient. I explained the option of irrigation and debridement with revision of below-knee amputation stump. The risks of surgery was discussed which included but not limited to bleeding, continued infection, continued pain. All questions were answered. The patient does wish to proceed with surgery. The surgical site has been marked. Written consent will be obtained. MD SHAILA Bertrand/NAEEM /10:57 AM /11:49 AM
[2016-10-16] MEDS ORDERED: HYDR-3288 PO (12:52)
[2016-10-16] MEDS ORDERED: MISCELLANEOUS NURSING INFORMATION XX PRN (13:00)
[2016-10-16] MEDS ORDERED: diphenhydrAMINE HCL 25 MG CAP PO PRN (13:00)
[2016-10-16] MEDS ORDERED: MISCELLANEOUS PHARMACY INFORMATION XX ONE (13:00)
[2016-10-16] MEDS ORDERED: MORPHINE SULFATE 4 MG/ML INJ IV PUSH PRN (13:00)
[2016-10-16] MEDS ORDERED: ONDANSETRON HCL 4 MG/2 ML VIAL IVP PRN (13:00)
[2016-10-16] MEDS ORDERED: SODIUM CHLORIDE 0.9% FLUSH 10 ML FLUSH IV FLUSH PRN (13:00)
[2016-10-16] MEDS ORDERED: NALOXONE HCL 0.4 MG/ML AMP IV PRN (13:00)
[2016-10-16] MEDS ORDERED: GENTAMICIN SULFATE 80 MG/2 ML VIAL ONE ×2 (13:09→13:16)
[2016-10-16] MEDS ORDERED: VANCOMYCIN HCL 1000 MG VIAL ONE (14:03)
[2016-10-16] MEDS ORDERED: TRANEXAMIC ACID INJ 1,000 MG/10 ML AMP ONE (14:13)
[2016-10-16] MEDS ORDERED: Post-op Orders (for Pharmacy) MISC XX ONE (15:07)
[2016-10-16] MEDS ORDERED: fentaNYL CITRATE 250 MCG/5 ML AMP ONE (15:20)
[2016-10-16] MEDS ORDERED: *morphine SULFATE 8 MG/ML PERIprocedure ONLY ONE (15:34)
[2016-10-16 16:00] VITALS: BP_SYST 103; BP_SYST 120; BP_DIAS 57; BP_DIAS 69; PULSE 63; PULSE 75; RESP 17; TEMP 96.5; TEMP 98.1; O2SAT 95; O2SAT 98
[2016-10-16] MEDS ORDERED: DEXT 5%-NACL 0.45% 1000 ML INJ 1,000 ML IV SCH (16:00)
[2016-10-16 20:00] VITALS: BP 110/60; PULSE 78; RESP 20; TEMP 97.6; O2SAT 99
[2016-10-16] MEDS: DOCUSATE SODIUM 50 MG/SENNA 8.6 MG TAB PO SCH (21:00)
[2016-10-16] MEDS: ACETAMINOPHEN/HYDROcodone 325 MG/7.5 MG TAB PO PRN (23:16)
[2016-10-16] MEDS: ATORVASTATIN 80 MG TAB PO SCH (23:17)
[2016-10-16] MEDS: LORazepam 0.5 MG TAB PO SCH (23:17)
[2016-10-17] VITALS (8 sets, daily range): BP systolic 98–128; BP diastolic 56–64; PULSE 76–104; RESP 16–20; TEMP 96.2–100; O2SAT 91–98
[2016-10-17 05:56] LABS: HEMATOCRIT 23.7 % (35.0-46.0); MEAN CELL VOLUME 84.6 FL (80.0-100.0); MEAN CORPUSCULAR HEMOGLOBIN 28.4 PG (27.0-34.0); MEAN CORPUSCULAR HGB CONC 33.5 % (32.0-36.0); PLATELET COUNT 224 TH/MM3 (150-450); REVIEW FLAG FINAL; WHITE BLOOD COUNT 10.9 TH/MM3 (4.0-11.0)
[2016-10-17 06:30] LABS: BICARBONATE 24.7 MEQ/L (21.0-32.0)
[2016-10-17] MEDS: INSULIN ASPART SUPPLEMENTAL SCALE SQ SCH ×4 (07:00→19:51)
[2016-10-17] MEDS ORDERED: INSULIN HUMAN NPH/R 70/30 1,000 UNITS/10 ML VIAL SQ SCH (08:00)
[2016-10-17] MEDS: CARVEDILOL 3.125 MG TAB PO SCH ×2 (08:41→19:40)
[2016-10-17] MEDS: metFORMIN HCL 500 MG TAB PO SCH ×2 (08:41→17:18)
[2016-10-17] MEDS: MULTIVITAMINS/MINERALS THERAPEUTIC TAB PO SCH (08:41)
[2016-10-17] MEDS: CITALOPRAM HYDROBROMIDE 20 MG TAB PO SCH (08:41)
[2016-10-17] MEDS: PANTOPRAZOLE SOD 40 MG DELAYED RELEASE TAB PO SCH (08:41)
[2016-10-17] MEDS: GABAPENTIN 300 MG CAP PO SCH ×3 (08:41→17:18)
[2016-10-17] MEDS: CEFEPIME INJ 1,000 MG in SODIUM CHLORIDE 0.9% INJ 100 ML IV SCH ×2 (08:42→19:40)
[2016-10-17] MEDS: SODIUM CHLORIDE 0.9% FLUSH 10 ML FLUSH IV FLUSH SCH ×2 (08:44→19:40)
[2016-10-17] MEDS: DOCUSATE SODIUM 50 MG/SENNA 8.6 MG TAB PO SCH ×2 (08:44→19:40)
[2016-10-17] MEDS: ACETAMINOPHEN/HYDROcodone 325 MG/7.5 MG TAB PO PRN ×2 (08:46→20:57)
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
[2016-10-17] MEDS ORDERED: VANCOMYCIN INJ 1,000 MG in SODIUM CHLOR 0.9% 250 ML INJ 250 ML IV SCH (10:00)
[2016-10-17] MEDS ORDERED: Vancomycin Consult Pharmacy 1 EA OTHER SCH (10:00)
[2016-10-17] MEDS ORDERED: VANCOMYCIN INJ 1,250 MG in SODIUM CHLOR 0.9% 250 ML INJ 250 ML IV SCH (12:00)
[2016-10-17 12:45] LABS: FERRITIN 753 NG/ML (8-252); TRANSFERRIN IRON PROFILE 147 MG/DL (200-360)
--- NOTE | 2016-10-17 13:28 | MP ---
cc: EDWIN BURNETT DATE OF SURGERY: 10/16/2016 PREOPERATIVE DIAGNOSIS Left below-knee amputation with necrotic distal ulcer and infection. POSTOPERATIVE DIAGNOSIS Left below-knee amputation with necrotic distal ulcer and infection. PROCEDURE Revision left below-knee amputation with irrigation and debridement. SURGEON Dr. Edwin Burnett. AQUATICS COORDINATOR MIRZA Frank ANESTHESIA General. ESTIMATED BLOOD LOSS 200 ccs. COMPLICATIONS None. JUSTIFICATION This patient is a 71-year-old female who underwent previous left below-knee amputation. She had developments of a distal ulcer along the region of her stump as related to a prosthesis with evidence of drainage. The patient was evaluated by the undersigned at [facility] Emergency Room. MRI confirmed the above-named findings. The patient was counseled as to the risks, benefits and alternatives to the above-named proposed surgical procedure, she did wish to proceed with surgery. PROCEDURE IN DETAIL Written consent was obtained. The patient was identified by name, taken to the operating room and placed supine on the operating table. General anesthesia was administered as well as 1 gram of IV vancomycin. The left lower extremity was prepped and draped using isopropyl alcohol, Hibiclens solution and Chloraprep solution. After a time-out was performed a circumferential incision was carried around the distal portion of left below-knee amputation stump. The area of the infected ulceration was completely excised with a 10 blade scalpel. Dissection was carried down to the level of bone and elevator was used to elevate the periosteum. An oscillating saw was used to perform a cut of the distal tibia. The distal tibia appeared to have almost a spike-like appearance along the distal aspect which was contributing to the ulceration. I resected approximately 4 cm of the distal tibia and I also resected approximately 4 cm of distal fibula. I used Bovie hemostasis for electrocautery to control bleeding. The wound was thoroughly irrigated with sterile saline pulse lavage antibiotic impregnated solution. After excision of any soft tissue that looked questionable, the deep fascial layer was closed with #1 Vicryl suture, subcutaneous layer with 2-0 Vicryl suture, skin was closed with jose. Sterile dressing was applied. The patient tolerated the procedure well with no intraoperative complications noted. Ahmet Guido, physician gillis certified was present for the entire procedure to include patient positioning, the procedure itself. The medical necessity of physician assistant counsel was indicated in this case due to the complexity of the procedure. He assisted with retraction of muscle, tendon, bone, neurovascular structure. He assisted with not only exposure but also manipulation of the leg and also closure of the wound. MD SHAILA Bertrand/INDIO /3:09 PM /1:12 PM
--- NOTE | 2016-10-17 13:45 | PD.ORT.PN ---
Subjective Post Op Day #: 1 Subjective Remarks resting, difficult to awake Objective Vitals Vital Signs Date Time Temp Pulse Resp B/P Pulse Ox O2 Delivery O2 Flow Rate FiO2 10/17/16 12:00 96.8 80 19 100/57 98 10/17/16 08:14 97 Nasal Cannula 2.00 10/17/16 08:00 100.0 104 17 128/64 93 10/17/16 03:13 98.4 80 20 118/58 97 10/17/16 00:23 18 10/16/16 20:00 97.6 78 20 110/60 99 10/16/16 16:00 97.8 77 14 125/65 97 Nasal Cannula 2 10/16/16 16:00 98.1 75 17 103/57 98 10/16/16 15:45 77 14 115/56 95 Nasal Cannula 2 10/16/16 15:30 79 14 131/61 95 Nasal Cannula 2 10/16/16 15:15 97.8 77 14 148/67 95 Nasal Cannula 4 I/O 10/16/16 10/16/16 10/16/16 10/17/16 10/17/16 10/17/16 06:59 14:59 22:59 06:59 14:59 22:59 Intake Total 1080 ml 240 ml Output Total 600 ml 550 ml Balance 480 ml -310 ml Intake Oral 480 ml 240 ml Other 600 ml Output Urine Total 500 ml 550 ml Estimated Blood Loss 100 ml # Bowel Movements 0 0 Result Diagram: 10/17/1652110/17/16521 Objective Remarks in bed, resting dressing c/d/i leg soft Assessment & Plan Ortho Post Op Day #: 1 Problem List: Assessment and Plan s/p revision L BKA daily dressing changes med management ortho stable f/up dr. garcia 2 weeks Clayton Guido October 17, 2016 13:45
[2016-10-17] MEDS: INSULIN HUMAN NPH/R 70/30 1,000 UNITS/10 ML VIAL SQ SCH (17:17)
[2016-10-17] MEDS: ATORVASTATIN 80 MG TAB PO SCH (19:39)
[2016-10-17] MEDS: LORazepam 0.5 MG TAB PO SCH (19:40)
[2016-10-17] MEDS ORDERED: PHARMACY ORDERED LAB ONE (19:45)
[2016-10-18] VITALS (8 sets, daily range): BP systolic 102–130; BP diastolic 52–74; PULSE 76–80; RESP 17–20; TEMP 96.9–98; O2SAT 91–97
[2016-10-18] MEDS: INSULIN ASPART SUPPLEMENTAL SCALE SQ SCH ×4 (05:31→20:24)
[2016-10-18 06:59] LABS: HEMATOCRIT 25.9 % (35.0-46.0); MEAN CELL VOLUME 83.2 FL (80.0-100.0); MEAN CORPUSCULAR HEMOGLOBIN 26.8 PG (27.0-34.0); MEAN CORPUSCULAR HGB CONC 32.2 % (32.0-36.0); PLATELET COUNT 203 TH/MM3 (150-450); RED BLOOD COUNT 3.12 MIL/MM3 (4.00-5.30); RED CELL DISTRIBUTION WIDTH 15.8 % (11.6-17.2); REVIEW FLAG FINAL; WHITE BLOOD COUNT 11.4 TH/MM3 (4.0-11.0)
[2016-10-18 07:37] LABS: POTASSIUM 4.7 MEQ/L (3.5-5.1)
[2016-10-18] MEDS ORDERED: SODIUM CHLOR 0.9% 1000 ML INJ 1,000 ML IV SCH (07:45)
[2016-10-18] MEDS: INSULIN HUMAN NPH/R 70/30 1,000 UNITS/10 ML VIAL SQ SCH ×2 (08:00→16:31)
[2016-10-18] MEDS: CARVEDILOL 3.125 MG TAB PO SCH ×2 (08:16→20:17)
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
[2016-10-18] MEDS: metFORMIN HCL 500 MG TAB PO SCH (08:17)
[2016-10-18] MEDS: MULTIVITAMINS/MINERALS THERAPEUTIC TAB PO SCH (08:17)
[2016-10-18] MEDS: SODIUM CHLORIDE 0.9% FLUSH 10 ML FLUSH IV FLUSH SCH ×2 (08:17→20:16)
[2016-10-18] MEDS: PANTOPRAZOLE SOD 40 MG DELAYED RELEASE TAB PO SCH (08:17)
[2016-10-18] MEDS: GABAPENTIN 300 MG CAP PO SCH ×3 (08:17→16:30)
[2016-10-18] MEDS: CITALOPRAM HYDROBROMIDE 20 MG TAB PO SCH (08:17)
[2016-10-18] MEDS: DOCUSATE SODIUM 50 MG/SENNA 8.6 MG TAB PO SCH ×2 (08:17→20:16)
--- NOTE | 2016-10-18 09:22 | PD.ORT.PN ---
Subjective Post Op Day #: 2 Subjective Remarks pain tolerable Objective Vitals Vital Signs Date Time Temp Pulse Resp B/P Pulse Ox O2 Delivery O2 Flow Rate FiO2 10/18/16 08:00 97.5 76 17 102/52 95 10/18/16 00:00 98.0 78 20 110/60 95 10/17/16 21:57 18 10/17/16 20:00 97.6 80 20 112/64 97 10/17/16 16:06 97.7 76 16 98/56 94 10/17/16 16:00 96.2 78 16 103/57 91 10/17/16 15:29 96.2 78 16 103/57 91 10/17/16 12:00 96.8 80 19 100/57 98 I/O 10/17/16 10/17/16 10/17/16 10/18/16 10/18/16 10/18/16 07:00 15:00 23:00 07:00 15:00 23:00 Intake Total 240 ml 1829 ml 830 ml 696 ml Output Total 550 ml 425 ml 450 ml 500 ml Balance -310 ml 1404 ml 380 ml 196 ml Intake Oral 240 ml 540 ml 480 ml 240 ml IV Total 1289 ml 456 ml Packed Cells 350 ml Output Urine Total 550 ml 425 ml 450 ml 500 ml # Bowel Movements 0 0 0 0 Result Diagram: 10/18/16 0547 10/18/16 0547 Objective Remarks in bed, resting, nad dressing c/d/i leg soft Assessment & Plan Ortho Post Op Day #: 2 Problem List: Assessment and Plan s/p revision L BKA daily dressing changes med management ortho stable - cleared f/up dr. garcia 2 weeks Clayton Guido October 18, 2016 09:22
[2016-10-18] MEDS: LEVOFLOXACIN 500 MG TAB PO SCH ×2 (09:35→09:49)
[2016-10-18] MEDS: ACETAMINOPHEN/HYDROcodone 325 MG/7.5 MG TAB PO PRN ×2 (09:49→20:17)
--- NOTE | 2016-10-18 14:23 | PD.CONS ---
History of Present Illness Service Podiatry Consult Requested By Reason for Consult right second toe ulcer Primary Care Physician Non-Staff Diagnoses: History of Present Illness 71 year old DM with left BKa revision in hospital with 2 week history of right second toe gradually improving redness, edema, and dorsal sore. Pt is comfortable at bedside Past Family Social History Allergies: Coded Allergies: Sulfa (Verified Allergy, Severe, Irritability/Anxiety, 10/14/16) Physical Exam Vital Signs Vital Signs Date Time Temp Pulse Resp B/P Pulse Ox O2 Delivery O2 Flow Rate FiO2 10/18/16 12:00 97.3 79 18 130/58 91 10/18/16 11:30 124/58 10/18/16 09:37 92 21 10/18/16 08:00 97.5 76 17 102/52 95 10/18/16 00:00 98.0 78 20 110/60 95 10/17/16 21:57 18 10/17/16 20:00 97.6 80 20 112/64 97 10/17/16 16:06 97.7 76 16 98/56 94 10/17/16 16:00 96.2 78 16 103/57 91 10/17/16 15:29 96.2 78 16 103/57 91 Physical Exam GENERAL: This is a well-nourished, well-developed patient, in no apparent distress. SKIN: No rashes, ecchymoses or lesions. Cool and dry. HEAD: Atraumatic. Normocephalic. No temporal or scalp tenderness. EYES: Pupils equal round and reactive. Extraocular motions intact. No scleral icterus. No injection or drainage. ENT: Nose without bleeding, purulent drainage or septal hematoma. Throat without erythema, tonsillar hypertrophy or exudate. Uvula midline. Airway patent. NECK: Trachea midline. No JVD or lymphadenopathy. Supple, nontender, no meningeal signs. CARDIOVASCULAR: Regular rate and rhythm without murmurs, gallops, or rubs. RESPIRATORY: Clear to auscultation. Breath sounds equal bilaterally. No wheezes , rales, or rhonchi. GASTROINTESTINAL: Abdomen soft, non-tender, nondistended. No hepato-splenomegaly , or palpable masses. No guarding. MUSCULOSKELETAL: Extremities without clubbing, cyanosis, or edema. No joint tenderness, effusion, or edema noted. No calf tenderness. Negative Homans sign bilaterally. NEUROLOGICAL: Awake and alert. Cranial nerves II through XII intact. Motor and sensory grossly within normal limits. Five out of 5 muscle strength in all muscle groups. Normal speech. Laboratory Laboratory Tests Test 10/18/16 05:47 White Blood Count 11.4 Red Blood Count 3.12 Hemoglobin 8.4 Hematocrit 25.9 Mean Corpuscular Volume 83.2 Mean Corpuscular Hemoglobin 26.8 Mean Corpuscular Hemoglobin 32.2 Concent Red Cell Distribution Width 15.8 Platelet Count 203 Mean Platelet Volume 9.4 Sodium Level 133 Potassium Level 4.7 Chloride Level 102 Carbon Dioxide Level 24.0 Anion Gap 7 Blood Urea Nitrogen 31 Creatinine 1.42 Estimat Glomerular Filtration 37 Rate Random Glucose 191 Calcium Level 7.8 Date/Time Procedure Status Source Growth 10/14/16 23:20 Urine Culture - Final Complete Urine Catheterized Urine Escherichia Coli 10/14/16 22:06 Gram Stain - Final Complete Wound Leg 10/14/16 22:06 Wound Culture - Final Complete Group B Beta Strep Staphylococcus Aureus 10/14/16 21:40 Aerobic Blood Culture - Preliminary Resulted Blood Peripheral NO GROWTH IN 4 DAYS 10/14/16 21:40 Anaerobic Blood Culture - Preliminary Resulted Blood Peripheral NO GROWTH IN 4 DAYS Result Diagram: 10/18/16 0547 10/18/16 0547 Imaging No right foot xray, left bka MRI showed stump abscess prior to surgery Course Left leg dressing intact, prior revision bka Right foot-sensation loss, deminished pulses Mild right second toe edema and rubor Superficial scabbing/stage 1 ulcer dorsal ipj with no tracking wound or purulent drainage with no forefoot streaking or redness Elongated thick nails times five with no sign of subungual hematoma or infection Assessment and Plan Assessment and Plan Right second digit edema, superficial ulcer dry -Pt states toe been getting smaller or improved redness since antibiotics in hospital No clinical sign of bone infection Ulcer appears healing with granulation and scabbing with signs of possibel prior delayed healing with current normal healing signs Plan is continue antibiotics that are being taken for left leg to help continue to resolve edema and redness No need to dressing as appears wound is healing and noninfected May not be a bad idea for baseline DIANNE for right foot to assess ability to heal completely No intervention from podiatry at this time but may order and review DIANNE for healing potential Bobby Delgado DPM October 18, 2016 14:22
--- NOTE | 2016-10-18 15:23 | PD.ID.CON ---
History of Present Illness Service ID Consult Requested By Reason for Consult Evaluation and Mment of Infected stump(MSSA and Strep) and E.coli symptomatic UTI. Primary Care Physician Non-Staff Diagnoses: History of Present Illness Ms. Larkin is a 71 year old DM with Left BKA for distal foot osteomyelitis ( in 02/2015), DM2 uncontrolled, Anxiety, Depression, HTN, Hyperlipidemia, PVD. With this background, patient presents to the ER by EMS w / complaints of left stump pain and drainage from wound x2 wks. States she has been unable to use prosthesis due to pain. Denies fever, chills or other symptoms. Denies night sweats. On arrival, BP 122/66, HR 93, O2 sat 95% on RA, Temp 99.1. WBC normal. Creatinine 1.20, previously 0.77 on 03/06/15. BS 543. Lactic Acid normal. Troponin negative. UA with mild UTI. Tibia/Fibula X-ray showing left below knee amputation, nonspecific edema of stump soft tissues without acute bony abnormality. S/p Wound/Blood Cultures in ER and IV Zosyn. Patient underwent revision of amputation site on 10/16/2016 and intraop cultures grew MSSA and Grp B Beta Strep (PCN susceptible and pt not allergic to PCN). Patient also complains of urinary urgency and had UA sent which is positive for E.coli. ID consulted for evaluation and Mment of Infected Left BKA stump and E.coli UTI. Review of Systems Constitutional: DENIES: Diaphoretic episodes, Fatigue, Fever, Weight gain, Weight loss, Chills, Dizziness, Change in appetite, Night Sweats Endocrine: DENIES: Abnorml menstrual pattern, Heat/cold intolerance, Polydipsia , Polyuria, Polyphagia Eyes: DENIES: Blurred vision, Diplopia, Eye inflammation, Eye pain, Vision loss , Photosensitivity, Double Vision Ears, nose, mouth, throat: DENIES: Tinnitus, Hearing loss, Vertigo, Nasal discharge, Oral lesions, Throat pain, Hoarseness, Ear Pain, Running Nose, Epistaxis, Sinus Pain, Toothache, Odynophagia Respiratory: DENIES: Apneas, Cough, Snoring, Wheezing, Hemoptysis, Sputum production, Shortness of breath Cardiovascular: DENIES: Chest pain, Palpitations, Syncope, Dyspnea on Exertion , PND, Lower Extremity Edema, Orthopnea, Claudication Gastrointestinal: DENIES: Abdominal pain, Black stools, Bloody stools, Constipation, Diarrhea, Nausea, Vomiting, Difficulty Swallowing, Anorexia Genitourinary: DENIES: Abnormal vaginal bleeding, Dysmenorrhea, Dyspareunia, Sexual dysfunction, Urinary frequency, Urinary incontinence, Urgency, Hematuria , Dysuria, Nocturia, Vaginal discharge Musculoskeletal: COMPLAINS OF: Joint Swelling, DENIES: Joint pain, Muscle aches, Stiffness, Back pain, Neck pain Integumentary: COMPLAINS OF: Abnormal pigmentation, DENIES: Pruritus, Rash, Nail changes, Breast masses, Breast skin changes, Nipple discharge Hematologic/lymphatic: DENIES: Bruising, Lymphadenopathy Immunologic/allergic: DENIES: Eczema, Urticaria Neurologic: DENIES: Abnormal gait, Headache, Localized weakness, Paresthesias, Seizures, Speech Problems, Tremor, Poor Balance Psychiatric: DENIES: Anxiety, Confusion, Mood changes, Depression, Hallucinations, Agitation, Suicidal Ideation, Homicidal Ideation, Delusions Except as stated in HPI: all other systems reviewed are Neg Past Family Social History Allergies: Coded Allergies: Sulfa (Verified Allergy, Severe, Irritability/Anxiety, 10/14/16) Past Medical History Anxiety, Depression, HTN, Hyperlipidemia, PVD, h/o Left BKA Phantom Leg Pain Past Surgical History Cardiac Stents, Left BKA Reported Medications Reported Meds & Active Scripts Active Waka (Hydrocodone-Acetaminophen) 7.5-325 mg Tab 1-2 Tab PO Q6H PRN Reported Novolog Inj (Insulin Aspart) 1,000 Unit/10 Ml Vial Unknown Dose SQ ACHS Max dose at bedtime:( )units; sugars less than 70,(0)units; sugars 150-199,(1) unit; sugars 200-249,(3) units; sugars 250-299,(5) units; sugars 300-349,(7) units; sugars greater than 349,(9) units Atorvastatin (Atorvastatin Calcium) 80 Mg Tab 80 Mg PO HS Coreg (Carvedilol) 3.125 Mg Tab 3.125 Mg PO BID Citalopram (Citalopram Hydrobromide) 10 Mg Tab 10 Mg PO DAILY Gabapentin 300 Mg Cap 300 Mg PO TID Novolin 70-30 Inj (Insulin Human Isoph/Insulin Regular) 1,000 Unit/10 Ml Vial 8 Units SQ BID Lisinopril 5 Mg Tab 5 Mg PO DAILY Lorazepam 0.5 Mg Tab 0.5 Mg PO HS Metformin (Metformin HCl) 500 Mg Tab 500 Mg PO BIDPC With meals Pantoprazole (Pantoprazole Sodium) 40 Mg Tab 40 Mg PO DAILY Requip (Ropinirole HCl) 0.25 Mg Tab 0.25 Mg PO HS Active Ordered Medications Current Medications Medications (Trade) Dose Ordered Sig/Piper Route Start Time Stop Time Status Last Admin (D50w (Vial) Inj) 50 ml UNSCH PRN IV 10/15/16 01:30 (Glucagon Inj) 1 mg UNSCH PRN OTHER 10/15/16 01:30 (Dulcolax Supp) 10 mg DAILY PRN RECTAL 10/15/16 01:30 (Tylenol) 650 mg Q6H PRN PO 10/15/16 01:30 (Lipitor) 80 mg HS PO 10/15/16 21:00 10/18/16 20:16 (Coreg) 3.125 mg BID PO 10/15/16 09:00 10/18/16 20:17 (CeleXA) 10 mg DAILY PO 10/15/16 09:00 10/18/16 08:17 (Neurontin) 300 mg TID PO 10/15/16 09:00 10/18/16 16:30 (Ativan) 0.5 mg HS PO 10/15/16 21:00 10/18/16 20:16 (Protonix) 40 mg DAILY PO 10/15/16 09:00 10/18/16 08:17 (Requip) 0.25 mg HS PO 10/15/16 21:00 10/18/16 20:16 (Glucophage) 1,000 mg BIDPC PO 10/16/16 10:00 Hold 10/18/16 08:17 (NS Flush) 2 ml UNSCH PRN IV FLUSH 10/16/16 13:00 (NS Flush) 2 ml BID IV FLUSH 10/16/16 21:00 10/18/16 20:16 (Ivonne-Colace) 1 tab BID PO 10/16/16 21:00 10/18/16 20:16 Miscellaneous Information UNSCH PRN XX 10/16/16 13:00 (Waka 7.5-325 Mg) 1 tab Q4H PRN PO 10/16/16 13:00 10/18/16 20:17 (Waka 7.5-325 Mg) 2 tab Q6H PRN PO 10/16/16 13:00 10/17/16 20:57 (Morphine Inj) 3 mg Q3H PRN IV PUSH 10/16/16 13:00 (Zofran Inj) 4 mg Q4H PRN IVP 10/16/16 13:00 (Theragran M Tab) 1 tab DAILY PO 10/17/16 09:00 10/18/16 08:17 (Benadryl) 25 mg Q6H PRN PO 10/16/16 13:00 (Narcan Inj) 0.4 mg UNSCH PRN IV 10/16/16 13:00 (NovoLIN 70/30 INJ) 18 units DAILY@17 SQ 10/17/16 17:00 10/18/16 16:31 (NovoLIN 70/30 INJ) 18 units DAILY@08 SQ 10/18/16 08:00 10/18/16 08:00 Miscellaneous Information SPECIFIC LAB TO BE SOLIS... ONCE ONCE .XX 10/19/16 11:45 10/19/16 11:46 Sodium Chloride 1,000 ml @ 70 mls/hr [id number] IV 10/18/16 07:45 10/18/16 08:18 (Rocephin Inj/NS Inj) 100 ml @ 200 mls/hr Q24H IV 10/18/16 16:00 10/18/16 16:30 Family History NC to current ID problems. Social History Negative for alcohol, tobacco or drugs. Physical Exam Vital Signs Vital Signs Date Time Temp Pulse Resp B/P Pulse Ox O2 Delivery O2 Flow Rate FiO2 10/18/16 12:00 97.3 79 18 130/58 91 10/18/16 11:30 124/58 10/18/16 09:37 92 21 10/18/16 08:00 97.5 76 17 102/52 95 10/18/16 00:00 98.0 78 20 110/60 95 10/17/16 21:57 18 10/17/16 20:00 97.6 80 20 112/64 97 10/17/16 16:06 97.7 76 16 98/56 94 10/17/16 16:00 96.2 78 16 103/57 91 10/17/16 15:29 96.2 78 16 103/57 91 Physical Exam GENERAL: This is a well-nourished, well-developed patient, in no apparent distress. SKIN: No rashes, ecchymoses or lesions. Cool and dry. HEAD: Atraumatic. Normocephalic. No temporal or scalp tenderness. EYES: Pupils equal round and reactive. Extraocular motions intact. No scleral icterus. No injection or drainage. ENT: Nose without bleeding, purulent drainage or septal hematoma. Throat without erythema, tonsillar hypertrophy or exudate. Uvula midline. Airway patent. NECK: Trachea midline. Supple, nontender, no meningeal signs. CARDIOVASCULAR: Regular rate and rhythm without murmurs. RESPIRATORY: Clear to auscultation. Breath sounds equal bilaterally. No wheezes , rales, or rhonchi. GASTROINTESTINAL: Abdomen soft, non-tender, nondistended. MUSCULOSKELETAL: Left BKA amputation site in post op dressing. Right foot with toe ulceration does not probe to bone. NEUROLOGICAL: Awake and alert. Grossly non focal Psych: cooperative IV line sites with no e.o infection. Laboratory Laboratory Tests Test 10/18/16 05:47 White Blood Count 11.4 Red Blood Count 3.12 Hemoglobin 8.4 Hematocrit 25.9 Mean Corpuscular Volume 83.2 Mean Corpuscular Hemoglobin 26.8 Mean Corpuscular Hemoglobin 32.2 Concent Red Cell Distribution Width 15.8 Platelet Count 203 Mean Platelet Volume 9.4 Sodium Level 133 Potassium Level 4.7 Chloride Level 102 Carbon Dioxide Level 24.0 Anion Gap 7 Blood Urea Nitrogen 31 Creatinine 1.42 Estimat Glomerular Filtration 37 Rate Random Glucose 191 Calcium Level 7.8 Date/Time Procedure Status Source Growth 10/14/16 23:20 Urine Culture - Final Complete Urine Catheterized Urine Escherichia Coli 10/14/16 22:06 Gram Stain - Final Complete Wound Leg 10/14/16 22:06 Wound Culture - Final Complete Group B Beta Strep Staphylococcus Aureus 10/14/16 21:40 Aerobic Blood Culture - Preliminary Resulted Blood Peripheral NO GROWTH IN 4 DAYS 10/14/16 21:40 Anaerobic Blood Culture - Preliminary Resulted Blood Peripheral NO GROWTH IN 4 DAYS Result Diagram: 10/18/16 0547 10/18/16 0547 Imaging Last Impressions Lower Extremity MRI 10/15/16 0000 Signed Impressions: Service Date/Time: Saturday, October 15, 2016 17:16 - CONCLUSION: Complex appearing fluid collection seen in the anterior distal soft tissues at the stump following a below the knee amputation. This is concerning for a soft tissue abscess. This appears to abut the distal anterior aspect of the remaining tibia but involvement of the bony structures is not clearly confirmed. Edward Howard MD Tibia/Fibula X-Ray 10/14/162115 Signed Impressions: Service Date/Time: Friday, October 14, 2016 21:50 - CONCLUSION: Left below knee amputation. Nonspecific edema of the stump soft tissues without an acute bony abnormality. Edward Cheng MD Assessment and Plan Assessment and Plan Left AKA amputation site with abscess s/p drainage. Right foot diabetic ulcer DM2 uncontrolled. ? compliance A1C 17.4 Recs DC Ancef IV DC Vanco IV DC Levaquin Start Ceftriaxone 2 gm IV q24 hrs (Tentative stop date: 11/02/2016) Infusion orders placed in chart. No need for PICC line. Can use Midline or PIV. RN informs me patient is going to rehab for PT/OT as gait stability a concern and is accepted at [facility]. d/w RN and patient DC plan [facility]. Infusion orders in chart. Case Management notified by consult. Will sign off please call back if any change in clinical condition or questions. Amira Cordero MD October 18, 2016 15:23
[2016-10-18] MEDS: cefTRIAXone INJ 2,000 MG in SODIUM CHLORIDE 0.9% INJ 100 ML IV SCH (16:30)
[2016-10-18] MEDS: ATORVASTATIN 80 MG TAB PO SCH (20:16)
[2016-10-18] MEDS: LORazepam 0.5 MG TAB PO SCH (20:16)
[2016-10-19] VITALS: BP 114/64; PULSE 70; RESP 20; TEMP 97.5; O2SAT 99
[2016-10-19] MEDS: ACETAMINOPHEN/HYDROcodone 325 MG/7.5 MG TAB PO PRN ×2 (04:42→16:20)
[2016-10-19 05:24] LABS: HEMATOCRIT 25.9 % (35.0-46.0); MEAN CELL VOLUME 83.2 FL (80.0-100.0); MEAN CORPUSCULAR HEMOGLOBIN 27.6 PG (27.0-34.0); MEAN CORPUSCULAR HGB CONC 33.2 % (32.0-36.0); PLATELET COUNT 232 TH/MM3 (150-450); RED BLOOD COUNT 3.11 MIL/MM3 (4.00-5.30); REVIEW FLAG FINAL; WHITE BLOOD COUNT 9.3 TH/MM3 (4.0-11.0)
[2016-10-19 05:48] LABS: BICARBONATE 22.8 MEQ/L (21.0-32.0); POTASSIUM 4.2 MEQ/L (3.5-5.1)
[2016-10-19] MEDS: INSULIN ASPART SUPPLEMENTAL SCALE SQ SCH ×3 (06:12→16:00)
--- NOTE | 2016-10-19 07:38 | HHI.FF ---
Infusion Therapy Location of Infusion Therapy: [facility] Infusion Therapy Order Patient Information Appointment Date: October 19, 2016 Patient Weight 80 kg Diagnosis: Diagnosis Infected amputation site abscess s/p drainage MSSA and Strep infection Coded Allergies: Sulfa (Verified Allergy, Severe, Irritability/Anxiety, 10/14/16) Administer Medication Ceftriaxone 2 grams IV q 24 hours Start Treatment: October 19, 2016 Stop Treatment: Nov 02, 2016 Additional Information Venous access: Other (Midline) Additional Instructions [x] Peripheral flush and dressing changes per protocol [x] Implanted port and central line prep cook: * Implanted port: 10 ml Normal Saline followed by 5 ml Heparin 100 units/ml Heparin flush after each use and monthly to maintain. [] May leave port accessed during therapy. [] May leave peripheral site accessed for duration of therapy. [x] If patient has SOB or respiratory distress, check oxygen saturation. If less than 90% or clinical signs of respiratory distress, administer oxygen at 2 L/min. via nasal cannula and notify physician. [x] Anaphylaxis/Reaction orders: * Stop infusion. * Keep IV line open with saline flush. * Notify physician. * Monitor vital signs every 15 minutes until symptoms resolve. * Check Oxygen saturation; Oxygen at 2 L/min. via nasal cannula if less than 90% or clinical signs of respiratory distress. * Administer diphenhydramine (Benadryl) 25 mg IV STAT, (unless patient has received as pre-med). May repeat once, if necessary. * Solu-Cortef 250 mg IVP over 30-60 seconds, use 100 mg vials for each dissolution. * Epinephrine (1mg/1 ml) 0.3 mg subcutaneously or IVP now with any signs of respiratory distress. * Check with physician for new additional pre-med orders if patient is re- challenged or re-treated. [x] May remove PICC line when treatment complete, after confirming with Physician. [x] If the patient is admitted to the hospital, the ED, or transferred via [facility] , complete transfer form including medication reconciliation order sheet. Laboratory Tests Weekly Labs: CBC w/diff, Creatinine, LFT's (Hepatic function test) Additional Information Please draw weekly labs, fax labs to number below and call with abnormals, change in clinical condition or problems to: or covering ID Physician Follow up appt: Patient to schedule follow up appt with Ortho Follow up with PCP Follow up with other MDs as planned. Counseling: Counseled about medication side effects Counseled about PICC line care and hand hygiene. Amira Cordero MD October 19, 2016 07:38
[2016-10-19] MEDS: GABAPENTIN 300 MG CAP PO SCH ×3 (07:47→17:23)
[2016-10-19] MEDS: DOCUSATE SODIUM 50 MG/SENNA 8.6 MG TAB PO SCH (07:47)
[2016-10-19] MEDS: CARVEDILOL 3.125 MG TAB PO SCH (07:47)
[2016-10-19] MEDS: PANTOPRAZOLE SOD 40 MG DELAYED RELEASE TAB PO SCH (07:47)
[2016-10-19] MEDS: SODIUM CHLORIDE 0.9% FLUSH 10 ML FLUSH IV FLUSH SCH (07:47)
[2016-10-19] MEDS: CITALOPRAM HYDROBROMIDE 20 MG TAB PO SCH (07:47)
[2016-10-19] MEDS: MULTIVITAMINS/MINERALS THERAPEUTIC TAB PO SCH (07:47)
[2016-10-19] MEDS: INSULIN HUMAN NPH/R 70/30 1,000 UNITS/10 ML VIAL SQ SCH ×2 (07:53→17:20)
[2016-10-19 08:00] VITALS: BP 115/59; PULSE 79; RESP 16; TEMP 97.8; O2SAT 94
--- NOTE | 2016-10-19 09:00 | PD.ORT.PN ---
Subjective Post Op Day #: 3 Subjective Remarks pain tolerable. moving the knee. Objective Vitals Vital Signs Date Time Temp Pulse Resp B/P Pulse Ox O2 Delivery O2 Flow Rate FiO2 10/19/16 08:00 97.8 79 16 115/59 94 10/19/16 00:00 97.5 70 20 114/64 99 10/18/16 20:00 96.9 79 20 119/74 97 10/18/16 16:55 91 Nasal Cannula 2.00 10/18/16 16:00 97.2 80 17 118/57 91 10/18/16 12:00 97.3 79 18 130/58 91 10/18/16 11:30 124/58 10/18/16 09:37 92 21 I/O 10/18/16 10/18/16 10/18/16 10/19/16 10/19/16 10/19/16 06:59 14:59 22:59 06:59 14:59 22:59 Intake Total 696 ml 675 ml 720 ml 300 ml Output Total 500 ml 200 ml Balance 196 ml 475 ml 720 ml 300 ml Intake Oral 240 ml 675 ml 720 ml 300 ml IV Total 456 ml Output Urine Total 500 ml 200 ml # Voids 2 2 3 # Bowel Movements 0 1 3 Result Diagram: 10/19/1642610/19/16426 Objective Remarks in bed, resting, nad incision no erythema, no drainage. i changed dressing. leg soft Assessment & Plan Ortho Post Op Day #: 3 Problem List: Assessment and Plan s/p revision L BKA daily dressing changes med management ortho stable - cleared f/up dr. garcia 2 weeks Clayton Giudo October 19, 2016 09:00
[2016-10-19] MEDS ORDERED: PHARMACY ORDERED LAB ONE (11:45)
[2016-10-19 12:00] VITALS: BP 122/69; PULSE 74; RESP 16; TEMP 96.4; O2SAT 96
--- NOTE | 2016-10-19 12:15 | HHI.PR ---
Subjective Remarks patient doing very well, no complains pain controlled, no fever Objective Vitals Vital Signs Date Time Temp Pulse Resp B/P Pulse Ox O2 Delivery O2 Flow Rate FiO2 10/19/16 08:00 97.8 79 16 115/59 94 10/19/16 00:00 97.5 70 20 114/64 99 10/18/16 20:00 96.9 79 20 119/74 97 10/18/16 16:55 91 Nasal Cannula 2.00 10/18/16 16:00 97.2 80 17 118/57 91 I/O 10/18/16 10/18/16 10/18/16 10/19/16 10/19/16 10/19/16 07:00 15:00 23:00 07:00 15:00 23:00 Intake Total 696 ml 675 ml 720 ml 300 ml Output Total 500 ml 200 ml Balance 196 ml 475 ml 720 ml 300 ml Intake Oral 240 ml 675 ml 720 ml 300 ml IV Total 456 ml Output Urine Total 500 ml 200 ml # Voids 2 2 3 # Bowel Movements 0 1 3 Result Diagram: 10/19/16 0427 10/19/16 0427 Imaging Last Impressions Lower Extremity MRI 10/15/16 0000 Signed Impressions: Service Date/Time: Saturday, October 15, 2016 17:16 - CONCLUSION: Complex appearing fluid collection seen in the anterior distal soft tissues at the stump following a below the knee amputation. This is concerning for a soft tissue abscess. This appears to abut the distal anterior aspect of the remaining tibia but involvement of the bony structures is not clearly confirmed. Edward Howard MD Tibia/Fibula X-Ray 10/14/162115 Signed Impressions: Service Date/Time: Friday, October 14, 2016 21:50 - CONCLUSION: Left below knee amputation. Nonspecific edema of the stump soft tissues without an acute bony abnormality. Edward Cheng MD Objective Remarks awake and alert, NAD anicteric lungs clear regular rhythm abdomen soft, nontender extremities- Left BK stump- jose in place- no erythema, dry right foot- second toe- with dry wound, mild erythema Procedures 10/16- I and D of left left BKA stump revision A/P Problem List: (1) Infection of amputation stump of left lower extremity ICD Code: T87.44 Status: Acute (2) UTI (urinary tract infection) ICD Code: N39.0 Status: Acute (3) WILLIE (acute kidney injury) ICD Code: N17.9 Status: Acute (4) DM (diabetes mellitus) ICD Code: E11.9 Status: Chronic Assessment and Plan 71-year-old female with PMH of Anxiety, Depression, HTN, Hyperlipidemia, PVD, h /o Left BKA and Phantom Leg Pain who was brought to the ER by EMS w/ complaints of left stump pain and drainage from wound x1week not taking any meds at all for 6 months now- pills and Insulin. baseline ambulates with a cane and a walker Left BKA Stump Abscess S/P I and D with stump revision 10/16- culture growing s. aureus- MSSA, group B strep- Ancef discontinued. Changed to Rocephin 2 gm IV 10/19 daily till 11/02 post op stump care per Ortho PT consult- patient states she ambulates baseline- usi ng a WC as walker Right foot 2nd toe dry ulcer- appreciate Podiatry recommendation- OP ff up E. coli UTI- DC quinolone,.on rocephin for #1 Acute postoperative anemia- on top of chronic anemia due to chronic disease S/P 1 unit RBC transfusion WILLIE: Creatinine up to 1.4- 10/18. Improved today. We will discontinue Metformin altogether and monitor on Insulin. Recheck BMP in SNF. consider starting TALIA if creatinine stabilizs. may benefit from TALIA being a diabetic Uncontrolled DM with Hyperglycemia: HgbA1c 17.5. Readings now in the low 200s- adjust 70/30 dose based on readings at the SNF improved readings. As stated DC metformin SNF today Darrel Serrano MD October 19, 2016 12:14
[2016-10-19] MEDS ORDERED: NOVO7030P2 SQ ×2 (12:35)
--- NOTE | 2016-10-19 12:42 | HHI.DS ---
Discharge Summary Admission Date October 15, 2016 at 09:12 Discharge Date: October 19, 2016 Admitting Diagnosis left leg stump infection/hyperglycemia (1) Infection of amputation stump of left lower extremity ICD Code: T87.44 Diagnosis: Principal (2) UTI (urinary tract infection) ICD Code: N39.0 Diagnosis: Principal (3) WILLIE (acute kidney injury) ICD Code: N17.9 Diagnosis: Principal (4) DM (diabetes mellitus) ICD Code: E11.9 Diagnosis: Secondary Procedures 10/16- I and D of left left BKA stump revision Brief History - From Admission This is a 71-year-old female with PMH of Anxiety, Depression, HTN, Hyperlipidemia, PVD, h/o Left BKA and Phantom Leg Pain who was brought to the ER by EMS w/ complaints of left stump pain and drainage from wound x2 wks. States she has been unable to use prosthesis due to pain. Denies fever, chills or other symptoms. On arrival, BP 122/66, HR 93, O2 sat 95% on RA, Temp 99.1. WBC normal. Creatinine 1.20, previously 0.77 on 03/06/15. BS 543. Lactic Acid normal. Troponin negative. UA with mild UTI. Tibia/Fibula X-ray showing left below knee amputation, nonspecific edema of stump soft tissues without acute bony abnormality. S/p Wound/Blood Cultures in ER and IV Zosyn. CBC/BMP: 10/19/16 0427 10/19/16 0427 Significant Findings Laboratory Tests Test 10/17/16 10/17/16 10/18/16 10/19/16 05:22 11:36 05:47 04:27 Red Blood Count 2.80 MIL/MM3 3.12 MIL/MM3 3.11 MIL/MM3 (4.00-5.30) (4.00-5.30) (4.00-5.30) Hemoglobin 7.9 GM/DL 8.4 GM/DL 8.6 GM/DL (11.6-15.3) (11.6-15.3) (11.6-15.3) Hematocrit 23.7 % 25.9 % 25.9 % (35.0-46.0) (35.0-46.0) (35.0-46.0) Sodium Level 134 MEQ/L 133 MEQ/L 134 MEQ/L (136-145) (136-145) (136-145) Blood Urea Nitrogen 20 MG/DL (7-18) 31 MG/DL (7-18) 30 MG/DL (7-18) Creatinine 1.07 MG/DL 1.42 MG/DL 1.09 MG/DL (0.50-1.00) (0.50-1.00) (0.50-1.00) Estimat Glomerular Filtration 51 ML/MIN (>89) 37 ML/MIN (>89) 50 ML/MIN (>89) Rate Random Glucose 299 MG/DL 191 MG/DL (74-106) (74-106) Calcium Level 7.9 MG/DL 7.8 MG/DL 8.4 MG/DL (8.5-10.1) (8.5-10.1) (8.5-10.1) Iron Level 17 MCG/DL (50-170) Total Iron Binding Capacity 206 MCG/DL (250-450) Percent Iron Saturation 8.3 % (20-50) Ferritin 753 NG/ML (8-252) White Blood Count 11.4 TH/MM3 (4.0-11.0) Mean Corpuscular Hemoglobin 26.8 PG (27.0-34.0) Imaging Last Impressions Lower Extremity MRI 10/15/16 0000 Signed Impressions: Service Date/Time: Saturday, October 15, 2016 17:16 - CONCLUSION: Complex appearing fluid collection seen in the anterior distal soft tissues at the stump following a below the knee amputation. This is concerning for a soft tissue abscess. This appears to abut the distal anterior aspect of the remaining tibia but involvement of the bony structures is not clearly confirmed. Edward Howard MD Tibia/Fibula X-Ray 10/14/[id number] Signed Impressions: Service Date/Time: Friday, October 14, 2016 21:50 - CONCLUSION: Left below knee amputation. Nonspecific edema of the stump soft tissues without an acute bony abnormality. Edward Cheng MD PE at Discharge awake and alert, NAD anicteric lungs clear regular rhythm abdomen soft, nontender extremities- Left BK stump- jose in place- no erythema, dry right foot- second toe- with dry wound, mild erythema Pt update on day of discharge afebrile- stump=- dry no chills better blood sugar readings pain controlled Hospital Course 71-year-old female with PMH of Anxiety, Depression, HTN, Hyperlipidemia, PVD, h /o Left BKA and Phantom Leg Pain who was brought to the ER by EMS w/ complaints of left stump pain and drainage from wound x1week not taking any meds at all for 6 months now- pills and Insulin. baseline ambulates with a cane and a walker Left BKA Stump Abscess S/P I and D with stump revision 10/16- culture growing s. aureus- MSSA, group B strep- Ancef discontinued. Changed to Rocephin 2 gm IV 10/19 daily till 11/02 post op stump care per Ortho PT consult- patient states she ambulates baseline- usi ng a WC as walker Right foot 2nd toe dry ulcer- appreciate Podiatry recommendation- OP ff up E. coli UTI- DC quinolone,.on rocephin for #1 Acute postoperative anemia- on top of chronic anemia due to chronic disease S/P 1 unit RBC transfusion WILLIE: Creatinine up to 1.4- 10/18. Improved today. We will discontinue Metformin altogether and monitor on Insulin. Recheck BMP in SNF. consider starting TALIA if creatinine stabilizs. may benefit from TALIA being a diabetic Uncontrolled DM with Hyperglycemia: HgbA1c 17.5. Readings now in the low 200s- adjust 70/30 dose based on readings at the SNF improved readings. As stated DC metformin SNF today Pt Condition on Discharge: Stable Discharge Disposition: Discharge to SNF Discharge Time: <= 30 minutes Discharge Instructions DIET: Follow Instructions for: Heart Healthy Diet, Diabetic Diet Speech Therapy-Diet Recommends: Regular Activities you can perform: Weight Bearing as Alena Activities to Avoid: Prolonged Standing, Strenuous Activity Follow up Referrals: Orthopedics - 2 Weeks with Clayton Gonzalez MD Podiatry - 2 Weeks with Bobby Delgado DPM New Orders: BASIC METABOLIC PROF - 10/24/16 New Medications: Hydrocodone-Acetaminophen ([place]) 7.5-325 mg Tab 1-2 TAB PO Q6H PRN PAIN #60 Ref 0 TAB Insulin Human Isophane-Regular 70-30 Inj (Novolin 70-30 Inj) 1,000 Unit/10 Ml Vial 18 UNITS SQ DAILY@17 DM Days 30 INJECTION Insulin Human Isophane-Regular 70-30 Inj (Novolin 70-30 Inj) 1,000 Unit/10 Ml Vial 18 UNITS SQ DAILY@08 DM Days 30 INJECTION Continued Medications: Atorvastatin (Atorvastatin) 80 Mg Tab 80 MG PO HS Cholesterol Management #30 Ref 0 TAB Carvedilol (Coreg) 3.125 Mg Tab 3.125 MG PO BID #60 Ref 0 TAB Citalopram (Citalopram) 10 Mg Tab 10 MG PO DAILY Control Depression #30 Ref 0 TAB Gabapentin (Gabapentin) 300 Mg Cap 300 MG PO TID #90 Ref 0 CAP Lorazepam (Lorazepam) 0.5 Mg Tab 0.5 MG PO HS SLEEP Ref 0 TAB Pantoprazole (Pantoprazole) 40 Mg Tab 40 MG PO DAILY Reflux #30 Ref 0 TAB Discontinued Medications: Metformin (Metformin) 500 Mg Tab 500 MG PO BIDPC With meals Blood Sugar Management #60 Ref 0 TAB Darrel Serrano MD October 19, 2016 12:42
--- NOTE | 2016-10-19 15:18 | RADRPT ---
EXAM DATE/TIME: 10/18/2016 00:00 [facility] COMPARISON: No previous studies available for comparison. INDICATIONS : Left Leg Stump Infection, Hyperglycemia TECHNIQUE: Four-cuff ankle and brachial pressures were obtained. Pulse cuff waveform tracings of the ankles were recorded, and ankle-brachial indices were calculated. PRESSURES (mmHg): Brachial (arm): Right IV SITE Left 102 Ankle: Right 132 Left BKA DIANNE: Right 1.29 Left BKA TBI: Right 0.75 PULSED CUFF WAVEFORMS: Demonstrate normal amplitude bilaterally. CONCLUSION: Unremarkable ankle brachial indices. Edward Fischer MD on October 19, 2016 at 15:16 Board Certified Radiologist. This report was verified electronically.
[2016-10-19 16:00] VITALS: BP 122/58; PULSE 80; RESP 16; TEMP 98.2; O2SAT 95
[2016-10-19] MEDS: cefTRIAXone INJ 2,000 MG in SODIUM CHLORIDE 0.9% INJ 100 ML IV SCH (17:14)
[2016-10-19 17:23] VITALS: RESP 16
== END 2016-10-19 18:00 | DRG 475 ==
LOC: NEPC 21:10 → NEDA 10-15 01:09 → NEPGCP 10-15 02:15 → OBSVTOIN 10-15 09:12 → N07B 10-16 11:46
PROVIDERS: ADMIT Internal Medicine; ATTEND Internal Medicine
PROC: 0Y6J0Z3 Detachment at Left Lower Leg, Low, Open Approach (ICD-10-PCS; principal; 2016-10-16 13:27)
PROC: 30233N1 Transfusion of Nonautologous Red Blood Cells into Peripheral Vein, Percutaneous Approach (ICD-10-PCS; 2016-10-17)
DX: T87.44 Infection of amputation stump, left lower extremity (principal); L03.116 Cellulitis of left lower limb; N17.9 Acute kidney failure, unspecified; N39.0 Urinary tract infection, site not specified; E11.621 Type 2 diabetes mellitus with foot ulcer; E11.65 Type 2 diabetes mellitus with hyperglycemia; D62 Acute posthemorrhagic anemia; L02.419 Cutaneous abscess of limb, unspecified; E78.5 Hyperlipidemia, unspecified; K21.9 Gastro-esophageal reflux disease without esophagitis; Y83.5 Amputation of limb(s) as the cause of abnormal reaction of the patient, or of later complication, without mention of misadventure at the time of the procedure; G25.81 Restless legs syndrome; I25.10 Atherosclerotic heart disease of native coronary artery without angina pectoris; Z95.5 Presence of coronary angioplasty implant and graft; J45.909 Unspecified asthma, uncomplicated; F41.9 Anxiety disorder, unspecified; L97.519 Non-pressure chronic ulcer of other part of right foot with unspecified severity; A49.01 Methicillin susceptible Staphylococcus aureus infection, unspecified site; B95.1 Streptococcus, group B, as the cause of diseases classified elsewhere; B96.20 Unspecified Escherichia coli [E. coli] as the cause of diseases classified elsewhere; F32.9 Major depressive disorder, single episode, unspecified; I10 Essential (primary) hypertension; Z79.4 Long term (current) use of insulin; Z79.84 Long term (current) use of oral hypoglycemic drugs
CPT/HCPCS: 36430; 36569; 73590; 73720; 76937; 80048; 80053; 80202; 81001; 82550; 82607; 82728; 82746; 82948; 83036; 83540; 83550; 83605; 83690; 84484; 85025; 85027; 85610; 85730; 86403; 86850; 86900; 86901; 86920; 87040; 87070; 87077; 87086; 87147; 87186; 87205; 93005; 93922; 94150; 96374; 96375; A9579; J0690; J0692; J0696; J1580; J1815; J2270; J2370; J2405; J2543; J3010; J3370; J7030; J7050; P9016

== ENCOUNTER 2016-12-04 22:14 | Inpatient (IN) | payer MEDICARE, MEDICAID ==
[~2016-12-04] VITALS: Ht 152.4 cm; Wt 72.6 kg
[~2016-12-04 22:14] MED LIST changes: +ATOR1TAB18 PO; +CITA10TA4 PO; -CITA20TA4 PO; -GABA300C3 PO; +GABA300C5 PO; +HYDR-3288 PO; -HYDR10SO PO; -LIPI80TA16 PO; -LISI-357 PO; +LISI-519 PO; +LORA-373 PO; -LORA0.5T PO; -LORTA5 PO; -METF500 PO; +NOVOLOGP2 SQ; -OXYC1SOL5 PO; +PANT40TA3 PO; -PROT40TA PO; -WALKER STANDARD
[2016-12-04 22:40] VITALS: BP 135/80; PULSE 82; RESP 17; TEMP 98.9; O2SAT 96
[2016-12-04 22:56] LABS: BASOPHIL % 0.3 % (0.0-2.0); EOSINOPHIL % 0.3 % (0.0-4.0); HEMATOCRIT 29.5 % (35.0-46.0); HEMO FLAGS DIFF FINAL; LYMPH % 11.6 % (9.0-44.0); MEAN CELL VOLUME 85.1 FL (80.0-100.0); MEAN CORPUSCULAR HEMOGLOBIN 27.5 PG (27.0-34.0); MEAN CORPUSCULAR HGB CONC 32.4 % (32.0-36.0); MONO % 6.6 % (0.0-8.0); NEUT % 81.2 % (16.0-70.0); PLATELET COUNT 205 TH/MM3 (150-450); RED BLOOD COUNT 3.46 MIL/MM3 (4.00-5.30); RED CELL DISTRIBUTION WIDTH 17.3 % (11.6-17.2); WHITE BLOOD COUNT 8.6 TH/MM3 (4.0-11.0)
[2016-12-04 22:57] VITALS: BP 120/57; PULSE 80; RESP 18; O2SAT 95
[2016-12-04 23:00] VITALS: O2SAT 95
--- NOTE | 2016-12-04 23:11 | RADRPT ---
EXAM DATE/TIME: 12/04/2016 22:29 [facility] COMPARISON: No previous studies available for comparison. INDICATIONS : General weakness. MEDICAL HISTORY : Diabetes mellitus type II. SURGICAL HISTORY : None. ENCOUNTER: Initial ACUITY: 1 day PAIN SCORE: 0/10 LOCATION: Bilateral chest FINDINGS: A single view of the chest demonstrates the lungs to be symmetrically aerated without evidence of mas s, or effusion. There some minimal scarring left upper lobe and right midlung zone. The cardiomediast inal contours are unremarkable. Osseous structures are intact. CONCLUSION: Stable scarring left upper lobe and right midlung zone. Brain Carlin MD on December 04, 2016 at 23:09 Board Certified Radiologist. This report was verified electronically.
[2016-12-04 23:12] LABS: ANION GAP 7 MEQ/L (5-15); AST (GOT) 75 U/L (15-37); BICARBONATE 30.2 MEQ/L (21.0-32.0); BLOOD UREA NITROGEN 30 MG/DL (7-18); CHLORIDE 98 MEQ/L (98-107); GLOMERULAR FILTRATION RATE 30 ML/MIN (>89); POTASSIUM 5.5 MEQ/L (3.5-5.1); SODIUM (NA) 135 MEQ/L (136-145)
[2016-12-04 23:13] LABS: ALT (GPT) 29 U/L (10-53)
--- NOTE | 2016-12-04 23:14 | PD ---
HPI Chief Complaint: General Weakness Time Seen by Provider: 22:55 Travel History International Travel<30 days: No Contact w/Intl Traveler<30days: No Traveled to known affect area: No History of Present Illness HPI The patient is a 71 year old female who presents to the [facility] emergency department with a history of currently residing in a rehabilitation center related to generalized weakness after a wound infection in her left stump. The patient reports that over the last 2 days she has had nausea and vomiting 2. She reports that she's had generalized weakness. Prior to arrival she was attempting to get up to grab the garbage can to vomit when she fell onto her left stump. She reports that an x-ray was done at that facility prior to her arrival and reportedly negative for fracture. The patient reports that over the last 2 weeks she has had an intermittent dry cough. She reports that it seemed to be getting better and then got worse again. The patient additionally reports having intermittent chest pain. She last had chest pain yesterday. She denies shortness of breath. She denies having any known fevers or chills. She is unsure whether she is on any antibiotic at the halfway. The patient reports that she does have a history of coronary artery disease and has had a stent placed 2 previously. She is unsure when she last had a stress test done. On arrival the patient's blood sugar is noted to be 177. There was a delay with the patient being brought back to the room and she was given in the ambulance soliz normal saline 500 mL bolus 1. On review of systems otherwise, the patient denies any neck pain, diarrhea, urinary symptoms , or other neurologic symptoms. The patient reports that she last moved her bowels today. She denies having any blood in her stool or black or tarry stools. [facility] Past Medical History Narrative Medical The patient's past medical history is significant for diabetes mellitus, history of an infection in her left leg stump requiring admission from October 15 through October 19, 2016, history of coronary artery disease, hyperlipidemia, anxiety and depression, hypertension, peripheral vascular disease. Hx Anticoagulant Therapy: Yes Arthritis: Yes Asthma: Yes Autoimmune Disease: No Anxiety: Yes Depression: Yes Heart Rhythm Problems: No Cancer: No Cardiac Catheterization: Yes Cardiovascular Problems: Yes High Cholesterol: Yes Chemotherapy: No Chest Pain: Yes Congestive Heart Failure: No COPD: No Diabetes: Yes Patient Takes Glucophage: No Diminished Hearing: No Endocrine: No Gastrointestinal Disorders: Yes GERD: Yes Genitourinary: No Hiatal Hernia: No Hypertension: Yes Immune Disorder: No Implanted Vascular Access Dvce: Yes Musculoskeletal: Yes (RESTLESS LEG SYNDROME) Neurologic: No Psychiatric: Yes Reproductive: No Respiratory: No Integumentary: Yes (WOUND TO LEFT FOOT.) Myocardial Infarction: Yes (05/2013) Radiation Therapy: No Sickle Cell Disease: No Sleep Apnea: No Thyroid Disease: No Ulcer: No Influenza Vaccination: Yes Menopausal: Yes Past Surgical History Narrative Surgical The patient's past surgical history is significant for cardiac catheterization with stent placement 2, left below the knee amputation. AICD: No Body Medical Devices: 2 Stents Cardiac Surgery: No Coronary Stent: Yes (X 2 - 05/2013 & 07/2013) Ear Surgery: No Endocrine Surgery: No Eye Surgery: No Genitourinary Surgery: No Gynecologic Surgery: No Insulin Pump: No Joint Replacement: No Neurologic Surgery: No Oral Surgery: No Pacemaker: No Thoracic Surgery: No Other Surgery: Yes (2nd operation 10/27/16 on left leg amputation ) Social History Alcohol Use: No Tobacco Use: No Substance Use: No Allergies-Medications (Allergen,Severity, Reaction): Coded Allergies: Sulfa (Verified Allergy, Severe, Irritability/Anxiety, 12/04/16) Reported Meds & Prescriptions Reported Meds & Active Scripts Active Reported Novolog Inj (Insulin Aspart) 1,000 Unit/10 Ml Vial 1-9 Units SQ ACHS Max dose at bedtime:( )units; sugars less than 70,(0)units; sugars 150-199,(1) unit; sugars 200-249,(3) units; sugars 250-299,(5) units; sugars 300-349,(7) units; sugars greater than 349,(9) units Prosource Plus Protein Liquid (Amino AC/Protein Hydr/Whey Pro) 887 Ml Liquid 60 Ml Zantac 75 (Ranitidine HCl) 75 Mg Tablet 1 Tab PO BID Zofran (Ondansetron HCl) 4 Mg Tab 4 Mg PO Q6HR PRN [place] (Hydrocodone-Acetaminophen) 7.5-325 mg Tab 1 Tab PO Q6H PRN Novolin 70/30 Inj (Insulin Human Isoph/Insulin Regular) 1,000 Units/10 Ml Inj [address] S[address]ous Sulf[address] (Ferrous Sulfate) 325 Mg Tabdr 1 Tab PO BID K-Tab (Potassium Chloride) 10 Meq Tab 10 Meq PO DAILY Lasix (Furosemide) 40 Mg Tab 40 Mg PO DAILY Calcium (Calcium Carbonate) 600 Mg Tab 1,200 Mg PO DAILY Vitamin D3 (Cholecalciferol) 10,000 Unit Cap 10,000 Units PO DAILY Vitamin B-1 (Thiamine HCl) 250 Mg Tab 500 Mg PO DAILY Selenium 200 Mcg Tab 200 Mg PO DAILY Once Daily (Multivitamin) 1 Each Tablet 1 Tab PO DAILY Vitamin B Complex-C (B Complex W/ C) 1 Cap Cap 1 Tab PO DAILY Folic Acid 800 Mcg Tab 3 Mg PO DAILY Miralax Powder (Polyethylene Glycol 3350 Powder) 17 Gm Powd 17 Gm PO DAILY Mix and dissolve one measuring cap-ful (17 grams) in water or juice. Atorvastatin (Atorvastatin Calcium) 80 Mg Tab 80 Mg PO HS Coreg (Carvedilol) 3.125 Mg Tab 3.125 Mg PO BID Citalopram (Citalopram Hydrobromide) 10 Mg Tab 10 Mg PO DAILY Gabapentin 300 Mg Cap 300 Mg PO TID Lorazepam 0.5 Mg Tab 0.5 Mg PO HS Review of Systems Except as stated in HPI: all other systems reviewed are Neg General / Constitutional: No: Fever Eyes: No: Visual changes HENT: Positive: Congestion, No: Headaches Cardiovascular: Positive: Chest Pain or Discomfort (last chest pain was yesterday) Respiratory: Positive: Cough, No: Shortness of Breath Gastrointestinal: Positive: Nausea, Vomiting, No: Diarrhea, Abdominal Pain, Hematemesis, Hematochezia, Constipation, Changes in Bowel Habits, Indigestion, Loss of Appetite Genitourinary: No: Dysuria Musculoskeletal: Positive: Myalgias, Pain Skin: No Rash Neurologic: Positive: Weakness (generalized weakness), No: Focal Abnormalities , Change in Mentation, Slurred Speech, Sensory Disturbance Psychiatric: No: Depression Endocrine: No: Polydipsia Hematologic/Lymphatic: No: Easy Bruising Physical Exam Narrative General: The patient is a well-developed well-nourished female in no acute distress. Head and Neck exam: Head is normocephalic atraumatic. Eyes: EOMI, pupils are equal round and reactive to light. Nose: Midline septum with pink mucous membranes Mouth: Dentition unremarkable. Moist mucus membranes. Posterior oropharynx is not erythematous. No tonsillar hypertrophy. Uvula midline. Airway patent. Neck: No palpable lymphadenopathy. No nuchal rigidity. No thyromegaly. Cardiovascular: Regular rate and rhythm without murmurs, gallops, or rubs. Lungs: Clear to auscultation bilaterally. No wheezes, rhonchi, or rales. Abdomen: Soft, without tenderness to palpation in all 4 quadrants of the abdomen. No guarding, rebound, or rigidity. Normal bowel sounds are audible. No tenderness on palpation of McBurney's point. Negative Michelle sign. Extremities: No clubbing, cyanosis, or edema. 2+ pulses in all 4 extremities. No calf tenderness on palpation. The patient has a left [id number] amputation noted. She has a bandage in place. This was removed. The patient has no open wounds or drainage. The patient has no skin erythema. The patient does have an area of ecchymosis along the anterior aspect of the distal leg near the stump. Back: No costovertebral angle tenderness to palpation. Neurologic Exam: Cranial nerves 2-12 were intact on exam. Strength is 5/5 in all 4 extremities. No sensory deficits noted. Skin Exam: No rash noted. Intact skin that is warm and dry. Data Data Last Documented VS Vital Signs Date Time Temp Pulse Resp B/P Pulse Ox O2 Delivery O2 Flow Rate FiO2 12/04/16 23:00 95 Nasal Cannula 2 12/04/16 22:57 80 18 120/57 12/04/16 22:40 98.9 Orders Complete Blood Count With Diff (12/04/16 22:26) Comprehensive Metabolic Panel (12/04/16 22:26) Lactic Acid (12/04/16 22:26) Blood Culture (12/04/16 22:26) Chest, Single Ap (12/04/16 ) Urinalysis - C+S If Indicated (12/04/16 22:58) Cath For Specimen (12/04/16 22:58) Beta Hydroxybutyrate (Acetone) (12/04/16 22:58) Iv Access Insert/Monitor (12/04/16 22:58) Ecg Monitoring (12/04/16 22:58) Oximetry (12/04/16 22:58) Electrocardiogram (12/04/16 23:06) Creatine Kinase (Cpk) (12/04/16 23:06) Ckmb (Isoenzyme) Profile (12/04/16 23:06) Troponin I (12/04/16 23:06) B-Type Natriuretic Peptide (12/04/16 23:06) Ondansetron Inj (Zofran Inj) (12/04/16 23:15) CKMB (12/04/16 22:30) CKMB% (12/04/16 22:30) Ct Abd/Pel W/O Iv Contrast (12/05/16 00:06) Sodium Chlorid 0.9% 500 Ml Inj (Ns 500 M (12/05/16 00:15) Piperacil-Tazo 3.375 Gm Premix (Zosyn 3. (12/05/16 01:15) Us Abdomen Gallbladder (12/05/16 01:02) Admit Order (Ed Use Only) (12/05/16 01:04) Labs Laboratory Tests Test 12/04/16 12/04/16 22:30 23:25 White Blood Count 8.6 TH/MM3 Red Blood Count 3.46 MIL/MM3 Hemoglobin 9.5 GM/DL Hematocrit 29.5 % Mean Corpuscular Volume 85.1 FL Mean Corpuscular Hemoglobin 27.5 PG Mean Corpuscular Hemoglobin 32.4 % Concent Red Cell Distribution Width 17.3 % Platelet Count 205 TH/MM3 Mean Platelet Volume 9.0 FL Neutrophils (%) (Auto) 81.2 % Lymphocytes (%) (Auto) 11.6 % Monocytes (%) (Auto) 6.6 % Eosinophils (%) (Auto) 0.3 % Basophils (%) (Auto) 0.3 % Neutrophils # (Auto) 7.0 TH/MM3 Lymphocytes # (Auto) 1.0 TH/MM3 Monocytes # (Auto) 0.6 TH/MM3 Eosinophils # (Auto) 0.0 TH/MM3 Basophils # (Auto) 0.0 TH/MM3 CBC Comment DIFF FINAL Differential Comment Sodium Level 135 MEQ/L Potassium Level 5.5 MEQ/L Chloride Level 98 MEQ/L Carbon Dioxide Level 30.2 MEQ/L Anion Gap 7 MEQ/L Blood Urea Nitrogen 30 MG/DL Creatinine 1.71 MG/DL Estimat Glomerular Filtration 30 ML/MIN Rate Random Glucose 210 MG/DL Lactic Acid Level 2.1 mmol/L Calcium Level 8.0 MG/DL Total Bilirubin 0.6 MG/DL Aspartate Amino Transf 75 U/L (AST/SGOT) Alanine Aminotransferase 29 U/L (ALT/SGPT) Alkaline Phosphatase 117 U/L Total Creatine Kinase 355 U/L Creatine Kinase MB 2.9 NG/ML Creatine Kinase MB % 0.8 % Troponin I 0.05 NG/ML B-Type Natriuretic Peptide 251 PG/ML Total Protein 6.5 GM/DL Albumin 3.2 GM/DL B-Hydroxybutyrate 0.20 MMOL/L Urine Color YELLOW Urine Turbidity CLEAR Urine pH 5.5 Urine Specific Outlook 1.016 Urine Protein TRACE mg/dL Urine Glucose (UA) NEG mg/dL Urine Ketones NEG mg/dL Urine Occult Blood TRACE Urine Nitrite NEG Urine Bilirubin NEG Urine Urobilinogen LESS THAN 2.0 MG/DL Urine Leukocyte Esterase SMALL Urine RBC 1 /hpf Urine WBC 7 /hpf Urine Squamous Epithelial <1 /hpf Cells Urine Renal Epithelial Cells <1 /hpf Urine Hyaline Casts 45 /lpf Urine Mucus FEW /lpf Microscopic Urinalysis Comment CATH-CULT NOT IND MDM Medical Decision Making Medical Screen Exam Complete: Yes Emergency Medical Condition: Yes Medical Record Reviewed: Yes Interpretation(s) Last Impressions Gall Bladder Ultrasound 12/05/16 0102 Signed Impressions: Service Date/Time: Monday, December 05, 2016 02:22 - CONCLUSION: There is some wall thickening and sludge within the gallbladder. No definite positive sonographic Michelle's sign Brain Carlin MD Abdomen/Pelvis CT 12/05/16 0006 Signed Impressions: Service Date/Time: Monday, December 05, 2016 00:20 - CONCLUSION: The gallbladder is distended with an indistinct wall and some questionable pericholecystic fluid. Correlate for acute cholecystitis. Coronary atherosclerotic disease with small bilateral pleural effusions. Brain Carlin MD Chest X-Ray 12/04/16 0000 Signed Impressions: Service Date/Time: Sunday, December 04, 2016 22:29 - CONCLUSION: Stable scarring left upper lobe and right midlung zone. Brain Carlin MD Differential Diagnosis DKA, versus electrolyte abnormality, versus sepsis related to urinary tract infection, versus pneumonia, versus viral syndrome Narrative Course During the course of the patients emergency department visit, the patients history, examination, and differential diagnosis were reviewed with the patient. The patient had IV access obtained and blood work sent for analysis. The patient was placed on a truck driver flatbed with oximetry and blood pressure monitoring. The patient had an ECG done on arrival. The patient is a sinus rhythm heart rate of 80, QRS duration is 89 ms, QTc is 423 ms without any acute ST segment elevation or depression. The patient was initially provided normal saline a 500 mL bolus 1. The patient was given Zofran 4 mg IV for nausea. The patients laboratory studies were reviewed and remarkable for a white count of 8.6, hemoglobin 9.5, platelets 205 with 81.2 neutrophils, CMP is remarkable for a sodium of 135, potassium 5.5, glucose 210, BUN 30, creatinine 1.71, lactic acid 2.1, AST 75, CPK 355 with a normal MB percent, troponin I 0.05, albumin 3.2 a BNP is 251, INR is 1.1, urinalysis shows small leukocyte Estrace 7 WBCs otherwise unremarkable, Beta hydroxybutyrate is normal Radiology studies were reviewed and remarkable for a chest x-ray that shows stable scarring in the left upper lobe and right mid lung zone, CT scan of the abdomen and pelvis shows a gallbladder that is distended with indistinct wall and some questionable pericholecystic fluid. The patient will be admitted to the hospital for continued evaluation and treatment. The patients results were discussed with the patient, including the plan of care. I explained that further testing and/ or monitoring is indicated based on the patients history, examination, and/ or laboratory findings. Therefore, I recommended admission for additional evaluation. The patient expressed understanding and was agreeable with this plan. The patient was admitted to the hospital in stable condition and [facility] Physician Communication Physician Communication The patient's case was discussed with Dr. Waterman who did agree to admit the patient for further evaluation and treatment at this time. Diagnosis Primary Impression: Nausea & vomiting Qualified Code: R11.2 - Non-intractable vomiting with nausea, unspecified vomiting type Additional Impression: Generalized weakness Iirs Yeboah MD Dec 04, 2016 23:14
[2016-12-04 23:15] LABS: ALKALINE PHOSPHATASE 117 U/L (45-117); TOTAL BILIRUBIN ADULT 0.6 MG/DL (0.2-1.0)
[2016-12-04] MEDS ORDERED: ONDANSETRON HCL 4 MG/2 ML VIAL IV ONE (23:15)
[2016-12-04 23:46] LABS: CKMB 2.9 NG/ML (0.5-3.6)
[2016-12-04 23:53] LABS: BLOOD, URINE TRACE (NEG); COMMENT (UR) CATH-CULT NOT IND; CULTURE IF INDICATED CATH CULTURE NOT IND; GLUCOSE,URINE NEG (NEG); HYALINE CAST, URINE 45 /lpf (RARE); KETONE, URINE NEG (NEG); MUCUS URINE FEW /lpf (OCC); NITRITE,URINE NEG (NEG); PH, URINE 5.5 (5.0-8.5); RENAL EPITHELIAL CELLS <1 /hpf; SQUAMOUS EPITHELIAL CELL URINE <1 /hpf (0-5); URINE COLOR YELLOW (YELLW/STRAW)
[2016-12-05] VITALS (8 sets, daily range): BP systolic 115–138; BP diastolic 59–68; PULSE 65–77; RESP 16–18; TEMP 97.4–99; O2SAT 92–100
[2016-12-05] MEDS ORDERED: SODIUM CHLORID 0.9% 500 ML INJ 500 ML IV ONE (00:15)
[2016-12-05] MEDS ORDERED: SELE1TAB PO (00:26)
[2016-12-05] MEDS ORDERED: FURO1TAB60 PO (00:26)
[2016-12-05] MEDS ORDERED: ONCETAB7 PO (00:26)
[2016-12-05] MEDS ORDERED: VITA250T25 PO (00:26)
[2016-12-05] MEDS ORDERED: FOLI800T PO (00:26)
[2016-12-05] MEDS ORDERED: HYDR-3288 PO (00:26)
[2016-12-05] MEDS ORDERED: CALC600T25 PO (00:26)
[2016-12-05] MEDS ORDERED: ZOFR4TAB PO (00:26)
[2016-12-05] MEDS ORDERED: ZANTTAB11 PO (00:26)
[2016-12-05] MEDS ORDERED: MIRA3350 PO (00:26)
[2016-12-05] MEDS ORDERED: FERR325T2 PO (00:26)
[2016-12-05] MEDS ORDERED: CHOL1CAP24 PO (00:26)
[2016-12-05] MEDS ORDERED: N7030SS SQ (00:26)
[2016-12-05] MEDS ORDERED: VITACAP9 PO (00:26)
[2016-12-05] MEDS ORDERED: K-TA10TA PO (00:26)
[2016-12-05] MEDS ORDERED: PROSLIQ (00:26)
[2016-12-05] MEDS ORDERED: NOVOLOGP2 SQ (00:26)
--- NOTE | 2016-12-05 00:36 | RADRPT ---
EXAM DATE/TIME: 12/05/2016 00:20 [facility] COMPARISON: No previous studies available for comparison. INDICATIONS : Abdominal pain. ORAL CONTRAST: No oral contrast ingested. RADIATION DOSE: 8.32 CTDIvol (mGy) MEDICAL HISTORY : Myocardial infarction. Hypertension. Diabetes mellitus type 2.Asthma, cardiac stents SURGICAL HISTORY : None. ENCOUNTER: Initial ACUITY: 1 day PAIN SCALE: 6/10 LOCATION: abdomen TECHNIQUE: Volumetric scanning of the abdomen and pelvis was performed. Using automated exposure control and ad justment of the mA and/or kV according to patient size, radiation dose was kept as low as reasonably achievable to obtain optimal diagnostic quality images. DICOM format image data is available electro nically for review and comparison. FINDINGS: LOWER LUNGS: The visualized lower lungs are clear. Small bilateral pleural effusions LIVER: Homogeneous density without lesion. There is no dilation of the biliary tree. No visible gallstones are noted. There may be a small amount of sludge in the dependent portion. There is some indistinct ness of the gallbladder wall and some questionable pericholecystic fluid correlate for acute cholecys titis. SPLEEN: Normal size without lesion. PANCREAS: Within normal limits. KIDNEYS: Normal in size and shape. There is no mass, stone, or hydronephrosis. ADRENAL GLANDS: Within normal limits. VASCULAR: There is no aortic aneurysm. BOWEL/MESENTERY: The stomach, small bowel, and colon demonstrate no acute abnormality. There is no free intraperitone al air or fluid. Sigmoid diverticulosis ABDOMINAL WALL: Within normal limits. RETROPERITONEUM: There is no lymphadenopathy. BLADDER: No wall thickening or mass. REPRODUCTIVE: Within normal limits. INGUINAL: There is no lymphadenopathy or hernia. MUSCULOSKELETAL: Within normal limits for patient age. CONCLUSION: The gallbladder is distended with an indistinct wall and some questionable pericholecystic fluid. Cor relate for acute cholecystitis. Coronary atherosclerotic disease with small bilateral pleural effusions. Brain Carlin MD on December 05, 2016 at 0:32 Board Certified Radiologist. This report was verified electronically.
[2016-12-05] MEDS ORDERED: MAGNESIUM HYDROXIDE SUSP 30 ML CUP PO PRN (01:15)
[2016-12-05] MEDS ORDERED: SENNOSIDES 8.6 MG TAB PO PRN (01:15)
[2016-12-05] MEDS ORDERED: ONDANSETRON HCL 4 MG/2 ML VIAL IVP PRN (01:15)
[2016-12-05] MEDS ORDERED: PIPERACIL-TAZO 3.375 GM PREMIX 50 ML IV ONE (01:15)
[2016-12-05] MEDS ORDERED: BISACODYL 10 MG SUPP RECTAL PRN (01:15)
[2016-12-05] MEDS ORDERED: NALOXONE HCL 0.4 MG/ML AMP IV PRN (01:15)
[2016-12-05] MEDS ORDERED: LACTULOSE SYRUP 20 GM/30 ML CUP PO PRN (01:15)
[2016-12-05] MEDS: SODIUM CHLOR 0.9% 1000 ML INJ 1,000 ML IV SCH ×3 (01:31→21:19)
--- NOTE | 2016-12-05 01:35 | HHI.HP ---
[facility] Primary Care Physician Non-Staff Admission Diagnosis Generalized weakness, vomiting, r/o acute cholecystitis Diagnoses: (1) Cholecystitis Diagnosis: Principal (2) S/P BKA (below knee amputation) unilateral (3) DM type 2 (diabetes mellitus, type 2) (4) Acute worsening of stage 3 chronic kidney disease (5) Elevated LFTs (6) Hypertension (7) GERD (gastroesophageal reflux disease) (8) Coronary artery disease (9) Fall Chief Complaint: Fall, nausea, vomiting Travel History International Travel<30 Days: No Contact w/Intl Traveler <30 Da: No Traveled to Known Affected Are: No History of Present Illness The patient is a 71-year-old female who presented to the ER from the halfway facility following a fall. She states that she was trying to reach for something and slipped. She landed on her left BKA stump. She reports pain in the stump. Over the last 2 days she has had nausea, vomiting. Denies chest pain or dyspnea. She also feels weak. Review of Systems Constitutional: DENIES: Fever, Chills, Night Sweats Eyes: DENIES: Blurred vision, Vision loss Ears, nose, mouth, throat: DENIES: Hearing loss Respiratory: DENIES: Cough, Wheezing, Sputum production, Shortness of breath Cardiovascular: DENIES: Chest pain, Palpitations, Dyspnea on Exertion, Lower Extremity Edema Gastrointestinal: COMPLAINS OF: Nausea, Vomiting, DENIES: Abdominal pain, Black stools, Bloody stools, Constipation, Diarrhea Genitourinary: DENIES: Urinary frequency, Urinary incontinence, Urgency, Hematuria, Dysuria, Nocturia Musculoskeletal: DENIES: Joint pain, Muscle aches Integumentary: DENIES: Pruritus, Rash Hematologic/lymphatic: DENIES: Bruising Neurologic: DENIES: Headache Past Family Social History Past Medical History Hypertension Diabetes mellitus type 2 Coronary artery disease Hyperlipidemia GERD Anxiety/depression Peripheral vascular disease Restless leg syndrome Past Surgical History Cardiac catheterization with stent placement 2 Left below-knee amputation Bilateral carpal tunnel release Reported Medications Novolin 70-30 Inj (Insulin Human Isoph/Insulin Regular) 1,000 Unit/10 Ml Vial 18 Units SQ DAILY@08 30 Days Novolin 70-30 Inj (Insulin Human Isoph/Insulin Regular) 1,000 Unit/10 Ml Vial 18 Units SQ DAILY@17 30 Days [place] (Hydrocodone-Acetaminophen) 7.5-325 mg Tab 1-2 Tab PO Q6H PRN Novolog Inj (Insulin Aspart) 1,000 Unit/10 Ml Vial Unknown Dose SQ ACHS Max dose at bedtime:( )units; sugars less than 70,(0)units; sugars 150-199,(1) unit; sugars 200-249,(3) units; sugars 250-299,(5) units; sugars 300-349,(7) units; sugars greater than 349,(9) units Atorvastatin (Atorvastatin Calcium) 80 Mg Tab 80 Mg PO HS Coreg (Carvedilol) 3.125 Mg Tab 3.125 Mg PO BID Citalopram (Citalopram Hydrobromide) 10 Mg Tab 10 Mg PO DAILY Gabapentin 300 Mg Cap 300 Mg PO TID Novolin 70-30 Inj (Insulin Human Isoph/Insulin Regular) 1,000 Unit/10 Ml Vial 8 Units SQ BID Lisinopril 5 Mg Tab 5 Mg PO DAILY Lorazepam 0.5 Mg Tab 0.5 Mg PO HS Pantoprazole (Pantoprazole Sodium) 40 Mg Tab 40 Mg PO DAILY Requip (Ropinirole HCl) 0.25 Mg Tab 0.25 Mg PO HS Allergies: Coded Allergies: Sulfa (Verified Allergy, Severe, Irritability/Anxiety, 12/04/16) Family History Cancer Heart disease Social History Denies tobacco or illicit drug use. Rare alcohol use. Physical Exam Vital Signs Vital Signs Date Time Temp Pulse Resp B/P Pulse Ox O2 Delivery O2 Flow Rate FiO2 12/04/16 23:00 95 Nasal Cannula 2 12/04/16 22:57 80 18 120/57 95 Nasal Cannula 2 12/04/16 22:40 98.9 82 17 135/80 96 Physical Exam GENERAL: Elderly female in no acute distress. HEENT: Normocephalic, atraumatic. Pupils equal, round and reactive. Extraocular movements intact. No scleral icterus. No injection or drainage. Oropharynx is clear. Mucous membranes are moist. CARDIOVASCULAR: Regular rate and rhythm without murmurs, gallops, or rubs. RESPIRATORY: Clear to auscultation. No wheezes, rales, or rhonchi. Breathing is non-labored. GASTROINTESTINAL: Abdomen soft, non-tender, nondistended. EXTREMITIES: Left BKA. PSYCH: Alert and oriented x 3. Laboratory Laboratory Tests Test 12/04/16 12/04/16 22:30 23:25 White Blood Count 8.6 Red Blood Count 3.46 Hemoglobin 9.5 Hematocrit 29.5 Mean Corpuscular Volume 85.1 Mean Corpuscular Hemoglobin 27.5 Mean Corpuscular Hemoglobin 32.4 Concent Red Cell Distribution Width 17.3 Platelet Count 205 Mean Platelet Volume 9.0 Neutrophils (%) (Auto) 81.2 Lymphocytes (%) (Auto) 11.6 Monocytes (%) (Auto) 6.6 Eosinophils (%) (Auto) 0.3 Basophils (%) (Auto) 0.3 Neutrophils # (Auto) 7.0 Lymphocytes # (Auto) 1.0 Monocytes # (Auto) 0.6 Eosinophils # (Auto) 0.0 Basophils # (Auto) 0.0 CBC Comment DIFF FINAL Differential Comment Sodium Level 135 Potassium Level 5.5 Chloride Level 98 Carbon Dioxide Level 30.2 Anion Gap 7 Blood Urea Nitrogen 30 Creatinine 1.71 Estimat Glomerular Filtration 30 Rate Random Glucose 210 Lactic Acid Level 2.1 Calcium Level 8.0 Total Bilirubin 0.6 Aspartate Amino Transf 75 (AST/SGOT) Alanine Aminotransferase 29 (ALT/SGPT) Alkaline Phosphatase 117 Total Creatine Kinase 355 Creatine Kinase MB 2.9 Creatine Kinase MB % 0.8 Troponin I 0.05 B-Type Natriuretic Peptide 251 Total Protein 6.5 Albumin 3.2 B-Hydroxybutyrate 0.20 Urine Color YELLOW Urine Turbidity CLEAR Urine pH 5.5 Urine Specific [place] 1.016 Urine Protein TRACE Urine Glucose (UA) NEG Urine Ketones NEG Urine Occult Blood TRACE Urine Nitrite NEG Urine Bilirubin NEG Urine Urobilinogen LESS THAN 2.0 Urine Leukocyte Esterase SMALL Urine RBC 1 Urine WBC 7 Urine Squamous Epithelial <1 Cells Urine Renal Epithelial Cells <1 Urine Hyaline Casts 45 Urine Mucus FEW Microscopic Urinalysis Comment CATH-CULT NOT IND Date/Time Procedure Status Source Growth 12/04/16 22:30 Aerobic Blood Culture Received Blood Peripheral Pending 12/04/16 22:30 Anaerobic Blood Culture Received Blood Peripheral Pending Result Diagram: 12/04/16222912/04/162229 Imaging Last Impressions Abdomen/Pelvis CT 12/05/16 0006 Signed Impressions: Service Date/Time: Monday, December 05, 2016 00:20 - CONCLUSION: The gallbladder is distended with an indistinct wall and some questionable pericholecystic fluid. Correlate for acute cholecystitis. Coronary atherosclerotic disease with small bilateral pleural effusions. Brain Carlin MD Chest X-Ray 12/04/16 0000 Signed Impressions: Service Date/Time: Sunday, December 04, 2016 22:29 - CONCLUSION: Stable scarring left upper lobe and right midlung zone. Brain Carlin MD Assessment and Plan Assessment and Plan 1. Acute cholecystitis: Patient has been having nausea and vomiting. CT of the abdomen/pelvis shows inflammation of the gallbladder. Start Zosyn. Gallbladder ultrasound ordered. Anti-emetics as needed. 2. Diabetes mellitus type 2: Continue 70/30 insulin. Monitor Accu-Cheks and cover with sliding scale insulin. 3. Hypertension: Continue Coreg. Hold lisinopril secondary to elevated creatinine. 4. Acute kidney injury superimposed on chronic kidney disease stage III: Monitor BUN and creatinine. IV fluids. 5. GERD: Continue Protonix. 6. Hyperlipidemia: Continue statin. 7. Coronary artery disease: Patient denies chest pain. CK slightly elevated. Troponin 0.05. Check serial cardiac enzymes and EKGs. 8. DVT prophylaxis: Heparin. Daryrl Waterman MD Dec 05, 2016 01:35
[2016-12-05] MEDS ORDERED: DEXTROSE 50% IN WATER 50 ML VIAL(D50) IV PRN (01:45)
[2016-12-05] MEDS ORDERED: GLUCAGON 1 MG/ML VIAL OTHER PRN (01:45)
--- NOTE | 2016-12-05 03:01 | RADRPT ---
EXAM DATE/TIME: 12/05/2016 02:22 [place] COMPARISON: No previous studies available for comparison. INDICATIONS : Nausea and vomiting. MEDICAL HISTORY : Gastroesophageal reflux disease. Myocardial infarction. Hypercholesterolemia. Anticoagulant therapy. Hypertension. Asthma. Arthritis. Diabetes. Restless leg syndrome. Coronary artery disease. Peripheral vascular disease. Depression. Anxiety. Measles. SURGICAL HISTORY : Coronary artery stent. Carpal tunnel repair. Left below the knee amputation. ENCOUNTER: Initial ACUITY: 1 day PAIN SCORE: 2/10 LOCATION: Right upper quadrant MEASUREMENTS: LIVER: 14.3 cm length COMMON DUCT: 5 mm RIGHT KIDNEY: 10.9 x 4.8 x 5.0 cm FINDINGS: LIVER: Normal echotexture without focal lesion or ductal dilatation. COMMON DUCT: No intraluminal mass or stone visualized. GALLBLADDER: Contains no stones but there does appear to be some sludge present. There is some wall thickening but no pericholecystic fluid.The patient was reportedly not especially tender over the gallbladder PANCREAS: The visualized portions are within normal limits. RIGHT KIDNEY: No evidence of hydronephrosis, stone, or mass. CONCLUSION: There is some wall thickening and sludge within the gallbladder. No definite positive sonographic Mur phy's sign Brain Carlin MD on December 05, 2016 at 2:58 Board Certified Radiologist. This report was verified electronically.
[2016-12-05] MEDS: HEPARIN SODIUM - SQ 10,000 UNITS/ML VIAL SQ SCH ×2 (06:27→18:07)
[2016-12-05] MEDS: INSULIN ASPART SUPPLEMENTAL SCALE SQ SCH ×4 (06:33→21:00)
[2016-12-05 06:54] LABS: CKMB 3.8 NG/ML (0.5-3.6)
[2016-12-05] MEDS: FERROUS SULFATE 325 MG (65 MG ELEMENTAL IRON) TAB PO SCH ×2 (08:40→21:19)
[2016-12-05] MEDS: THIAMINE HCL 100 MG TAB PO SCH (08:40)
[2016-12-05] MEDS: GABAPENTIN 300 MG CAP PO SCH ×3 (08:40→18:07)
[2016-12-05] MEDS: VITAMIN B COMPLEX/VIT C TAB PO SCH (08:40)
[2016-12-05] MEDS: CALCIUM CARBONATE 1.25 GM (CA 500 MG) TAB PO SCH (08:40)
[2016-12-05] MEDS: MULTIVITAMIN TAB PO SCH (08:40)
[2016-12-05] MEDS: CARVEDILOL 3.125 MG TAB PO SCH ×2 (08:41→21:19)
[2016-12-05] MEDS: CITALOPRAM HYDROBROMIDE 20 MG TAB PO SCH (08:41)
[2016-12-05] MEDS: FOLIC ACID 1 MG TAB PO SCH (08:41)
--- NOTE | 2016-12-05 10:16 | HHI.PR ---
Subjective Remarks This is a pleasant 71 y/o Female who came to ER from Longterm Facility after she fell landed on her Left BKA Stump, denies chest pain at this time but her Troponin level is trending up complaint on admission of Generalized weakness, Vomit at this time in her bedroom stable as we know she has Hypertension, DM II, CAD, Hyperlipidemia, GERD, Anxiety/ Depression PAD, Restless leg syndrome, admitted with Diagnosis of Cholecystitis,CT of the abdomen/pelvis shows inflammation of the gallbladder. was started on Zosyn. Gallbladder ultrasound ordered. GI specialist consult added today. Anti-emetics as needed. she has Poorly controlled DM II with Hemoglobin A1C in September this year 17.5, asked for a new one on this admission. Hypertension controlled. following acute kidney injury and Potassium stat, also will get new Lactic acid stat and C Diff, following Troponin trend. no chest pain. get a new ECG. Objective Vital Signs Date Time Temp Pulse Resp B/P Pulse Ox O2 Delivery O2 Flow Rate FiO2 12/05/16 07:40 98.3 72 16 122/61 93 12/05/16 04:10 98.8 75 17 138/67 98 12/05/16 02:00 95 Nasal Cannula 2.00 12/05/16 02:00 77 16 115/59 95 Nasal Cannula 2 12/04/16 23:00 95 Nasal Cannula 2 12/04/16 22:57 80 18 120/57 95 Nasal Cannula 2 12/04/16 22:40 98.9 82 17 135/80 96 I/O 12/04/16 12/04/16 12/04/16 12/05/16 12/05/16 12/05/16 07:00 15:00 23:00 07:00 15:00 23:00 Intake Total 462 ml Balance 462 ml Intake Oral 240 ml IV Total 222 ml # Voids 2 # Bowel Movements 1 Result Diagram: 12/04/16222912/04/162229 Lonnie Brooks MD Dec 05, 2016 10:16
[2016-12-05] MEDS: PIPERACIL-TAZO 3.375 GM PREMIX 50 ML IV SCH ×2 (11:07→18:07)
--- NOTE | 2016-12-05 13:28 | EKG ---
Date Performed: 12/05/2016 Time Performed: 09:59:13 PTAGE: 71 years EKG: Sinus rhythm NONSPECIFIC T-WAVE ABNORMALITY POSSIBLE SEPTAL INFARCT, AGE UNDETERMINED BORDERLINE ECG Since PREVIOUS TRACING , no significant change noted PREVIOUS TRACIN12/04/2016 23.14 DOCTOR: Rudolph Hawley Interpretating Date/Time 12/05/2016 13:25:35
--- NOTE | 2016-12-05 13:28 | EKG ---
Date Performed: 12/04/2016 Time Performed: 23:14:15 PTAGE: 71 years EKG: Sinus rhythm BORDERLINE LEFT AXIS DEVIATION NONSPECIFIC ST & T-WAVE ABNORMALITY POSSIBLE ANTERIOR WALL INFARCT, A GE UNDETERMINED BORDERLINE ECG Since PREVIOUS TRACING , no significant change noted PREVIOUS TRACIN10/14/2016 22.04 DOCTOR: Rudolph Hawley Interpretating Date/Time 12/05/2016 13:25:12
[2016-12-05 13:36] LABS: POTASSIUM 4.3 MEQ/L (3.5-5.1)
[2016-12-05 13:38] LABS: INTERNATIONAL NORMALIZED RATIO 1.1 RATIO; PROTHROMBIN TIME - PATIENT 11.9 SEC (9.8-11.6)
[2016-12-05 14:02] LABS: CKMB 2.3 NG/ML (0.5-3.6)
--- NOTE | 2016-12-05 16:03 | PD.CONS ---
HPI History of Present Illness This is a 71 year old female with hx DM, CKD, HTN, CAD, GERD who presented after a fall. Yesterday she experience n/v, diarrhea. Denies sick contacts, recent abx, travel, diet change. Denies abd pain, blood in stool, tarry stool, fever. Last had colonoscopy couple years ago, normal per pt. Denies ever having EGD. Pt is poor historian. PFSH Past Medical History Hypertension Diabetes mellitus type 2 Coronary artery disease Hyperlipidemia GERD Anxiety/depression Peripheral vascular disease Restless leg syndrome Past Surgical History Cardiac catheterization with stent placement 2 Left below-knee amputation Bilateral carpal tunnel release Coded Allergies: Sulfa (Verified Allergy, Severe, Irritability/Anxiety, 12/04/16) Family History Cancer Heart disease Social History Denies tobacco or illicit drug use. Rare alcohol use. Review of Systems Constitutional: DENIES: Fever Eyes: DENIES: Blurred vision Ears, nose, mouth, throat: DENIES: Hearing loss Respiratory: DENIES: Cough Cardiovascular: DENIES: Chest pain Gastrointestinal: COMPLAINS OF: Diarrhea, Nausea, Vomiting, DENIES: Abdominal pain, Black stools, Bloody stools, Constipation, Hematemesis Genitourinary: DENIES: Hematuria Musculoskeletal: DENIES: Joint Swelling Integumentary: DENIES: Rash Neurologic: DENIES: Headache Psychiatric: DENIES: Confusion GI Exam Vitals I&O Vital Signs Date Time Temp Pulse Resp B/P Pulse Ox O2 Delivery O2 Flow Rate FiO2 12/05/16 11:36 98.4 65 16 127/60 96 12/05/16 10:03 94 Nasal Cannula 2.00 12/05/16 07:40 98.3 72 16 122/61 93 12/05/16 04:10 98.8 75 17 138/67 98 12/05/16 02:00 95 Nasal Cannula 2.00 12/05/16 02:00 77 16 115/59 95 Nasal Cannula 2 12/04/16 23:00 95 Nasal Cannula 2 12/04/16 22:57 80 18 120/57 95 Nasal Cannula 2 12/04/16 22:40 98.9 82 17 135/80 96 I/O 12/04/16 12/04/16 12/04/16 12/05/16 12/05/16 12/05/16 07:00 15:00 23:00 07:00 15:00 23:00 Intake Total 462 ml 728 ml Balance 462 ml 728 ml Intake Oral 240 ml IV Total 222 ml 728 ml # Voids 2 # Bowel Movements 1 Imaging Last Impressions Gall Bladder Ultrasound 12/05/16 0102 Signed Impressions: Service Date/Time: Monday, December 05, 2016 02:22 - CONCLUSION: There is some wall thickening and sludge within the gallbladder. No definite positive sonographic Michelle's sign Brain Carlin MD Abdomen/Pelvis CT 12/05/16 0006 Signed Impressions: Service Date/Time: Monday, December 05, 2016 00:20 - CONCLUSION: The gallbladder is distended with an indistinct wall and some questionable pericholecystic fluid. Correlate for acute cholecystitis. Coronary atherosclerotic disease with small bilateral pleural effusions. Brain Carlin MD Chest X-Ray 12/04/16 0000 Signed Impressions: Service Date/Time: Sunday, December 04, 2016 22:29 - CONCLUSION: Stable scarring left upper lobe and right midlung zone. Brain Carlin MD Laboratory Test 12/04/16 12/04/16 12/05/16 12/05/16 22:30 23:25 06:08 13:06 White Blood Count 8.6 TH/MM3 Red Blood Count 3.46 MIL/MM3 Hemoglobin 9.5 GM/DL Hematocrit 29.5 % Mean Corpuscular Volume 85.1 FL Mean Corpuscular Hemoglobin 27.5 PG Mean Corpuscular Hemoglobin 32.4 % Concent Red Cell Distribution Width 17.3 % Platelet Count 205 TH/MM3 Mean Platelet Volume 9.0 FL Neutrophils (%) (Auto) 81.2 % Lymphocytes (%) (Auto) 11.6 % Monocytes (%) (Auto) 6.6 % Eosinophils (%) (Auto) 0.3 % Basophils (%) (Auto) 0.3 % Neutrophils # (Auto) 7.0 TH/MM3 Lymphocytes # (Auto) 1.0 TH/MM3 Monocytes # (Auto) 0.6 TH/MM3 Eosinophils # (Auto) 0.0 TH/MM3 Basophils # (Auto) 0.0 TH/MM3 CBC Comment DIFF FINAL Differential Comment Sodium Level 135 MEQ/L Potassium Level 5.5 MEQ/L 4.3 MEQ/L Chloride Level 98 MEQ/L Carbon Dioxide Level 30.2 MEQ/L Anion Gap 7 MEQ/L Blood Urea Nitrogen 30 MG/DL Creatinine 1.71 MG/DL Estimat Glomerular Filtration 30 ML/MIN Rate Random Glucose 210 MG/DL Lactic Acid Level 2.1 mmol/L 1.1 mmol/L Calcium Level 8.0 MG/DL Total Bilirubin 0.6 MG/DL Aspartate Amino Transf 75 U/L (AST/SGOT) Alanine Aminotransferase 29 U/L (ALT/SGPT) Alkaline Phosphatase 117 U/L Total Creatine Kinase 355 U/L 500 U/L 423 U/L Creatine Kinase MB 2.9 NG/ML 3.8 NG/ML 2.3 NG/ML Creatine Kinase MB % 0.8 % 0.8 % 0.5 % Troponin I 0.05 NG/ML 0.10 NG/ML 0.06 NG/ML B-Type Natriuretic Peptide 251 PG/ML Total Protein 6.5 GM/DL Albumin 3.2 GM/DL B-Hydroxybutyrate 0.20 MMOL/L Urine Color YELLOW Urine Turbidity CLEAR Urine pH 5.5 Urine Specific [place] 1.016 Urine Protein TRACE mg/dL Urine Glucose (UA) NEG mg/dL Urine Ketones NEG mg/dL Urine Occult Blood TRACE Urine Nitrite NEG Urine Bilirubin NEG Urine Urobilinogen LESS THAN 2.0 MG/DL Urine Leukocyte Esterase SMALL Urine RBC 1 /hpf Urine WBC 7 /hpf Urine Squamous Epithelial <1 /hpf Cells Urine Renal Epithelial Cells <1 /hpf Urine Hyaline Casts 45 /lpf Urine Mucus FEW /lpf Microscopic Urinalysis Comment CATH-CULT NOT IND Prothrombin Time 11.9 SEC Prothromb Time International 1.1 RATIO Ratio Date/Time Procedure Status Source Growth 12/04/16 22:30 Aerobic Blood Culture - Preliminary Resulted Blood Peripheral NO GROWTH IN 1 DAY 12/04/16 22:30 Anaerobic Blood Culture - Preliminary Resulted Blood Peripheral NO GROWTH IN 1 DAY Physical Examination HEENT: PERRL; normocephalic; atraumatic; no jaundice. CHEST: CTA CARDIAC: RRR ABDOMEN: Soft, nondistended, nontender; no hepatosplenomegaly; bowel sounds are present in all four quadrants. EXTREMITIES: No clubbing, cyanosis, or edema. Left BKA SKIN: Normal; no rash; no jaundice. BINGO FLOATER: No focal deficits; alert and oriented times three. Assessment and Plan Plan ASSESSMENT - n/v - unclear etiology, onset yesterday. 12-05-16--> some wall thickening and sludge within the gallbladder. No definite positive sonographic Michelle's sign CT 12-05-16--> The gallbladder is distended with an indistinct wall and some questionable pericholecystic fluid. Correlate for acute cholecystitis. Coronary atherosclerotic disease with small bilateral pleural effusions. Pt denies pain, not currently nauseous or vomiting. - diarrhea - onset yesterday. unclear etiology, accompanied by n/v. c diff pending. will do other stool cultures. - mild anemia - 9.5 on admission. 10-15-16 was 9.8 so this is not far from her baseline, does have CKD - WILLIE on CKD - per primary PLAN - await c diff - stool cx - LFTs - consider GS consult if n/v persists or pt has pain - monitor labs - supportive care This pt seen by myself and Dr Melchor and this note is written on his behalf. Poly Lou Dec 05, 2016 4:03 pm
[2016-12-05 16:51] LABS: HEMOGLOBIN A1a 1.3 %; HEMOGLOBIN A1b 0.9 %; HEMOGLOBIN Ao 80.9 %; HEMOGLOBIN F 1.3 %; HEMOGLOBIN LA1C 2.2 %; HEMOGLOBIN P3 4.1 %
[2016-12-05 18:36] LABS: INDIRECT BILIRUBIN 0.5 MG/DL (0.0-0.8); TOTAL BILIRUBIN ADULT 0.7 MG/DL (0.2-1.0)
[2016-12-05] MEDS: ATORVASTATIN 80 MG TAB PO SCH (21:19)
[2016-12-05] MEDS: LORazepam 0.5 MG TAB PO SCH (21:19)
[2016-12-06] VITALS (7 sets, daily range): BP systolic 104–137; BP diastolic 52–69; PULSE 62–93; RESP 17–18; TEMP 97.4–98.2; O2SAT 92–96
[2016-12-06] MEDS: PIPERACIL-TAZO 3.375 GM PREMIX 50 ML IV SCH ×3 (01:59→18:44)
[2016-12-06] MEDS ORDERED: LORazepam 2 MG/ML VIAL IV PUSH ONE (03:00)
[2016-12-06] MEDS ORDERED: ACETAMINOPHEN/HYDROcodone 325 MG/5 MG TAB PO ONE ×2 (05:00→21:15)
[2016-12-06] MEDS: HEPARIN SODIUM - SQ 10,000 UNITS/ML VIAL SQ SCH ×2 (05:13→18:45)
[2016-12-06 06:37] LABS: AUTOMATED NEUTROPHIL # 7.8 TH/MM3 (1.8-7.7); BASOPHIL # 0.1 TH/MM3 (0-0.2); BASOPHIL % 0.5 % (0.0-2.0); EOSINOPHIL # 0.3 TH/MM3 (0-0.4); EOSINOPHIL % 2.6 % (0.0-4.0); HEMATOCRIT 30.9 % (35.0-46.0); HEMO FLAGS DIFF FINAL; LYMPH % 14.3 % (9.0-44.0); LYMPHOCYTE # 1.5 TH/MM3 (1.0-4.8); MEAN CELL VOLUME 85.9 FL (80.0-100.0); MEAN CORPUSCULAR HGB CONC 31.5 % (32.0-36.0); MONO % 7.9 % (0.0-8.0); NEUT % 74.7 % (16.0-70.0); PLATELET COUNT 212 TH/MM3 (150-450); RED BLOOD COUNT 3.59 MIL/MM3 (4.00-5.30); RED CELL DISTRIBUTION WIDTH 17.2 % (11.6-17.2); WHITE BLOOD COUNT 10.4 TH/MM3 (4.0-11.0)
[2016-12-06] MEDS: INSULIN ASPART SUPPLEMENTAL SCALE SQ SCH ×4 (07:00→20:45)
[2016-12-06] MEDS: SODIUM CHLOR 0.9% 1000 ML INJ 1,000 ML IV SCH ×2 (07:08→17:08)
[2016-12-06 07:24] LABS: ALKALINE PHOSPHATASE 92 U/L (45-117); ALT (GPT) 19 U/L (10-53); ANION GAP 8 MEQ/L (5-15); AST (GOT) 40 U/L (15-37); BICARBONATE 29.3 MEQ/L (21.0-32.0); BLOOD UREA NITROGEN 19 MG/DL (7-18); CHLORIDE 105 MEQ/L (98-107); GLOMERULAR FILTRATION RATE 40 ML/MIN (>89); POTASSIUM 4.3 MEQ/L (3.5-5.1); SODIUM (NA) 142 MEQ/L (136-145); TOTAL BILIRUBIN ADULT 0.9 MG/DL (0.2-1.0)
[2016-12-06 07:56] LABS: C. DIFF EPI 027 PRESUMPTIVE NEGATIVE (NEGATIVE); C. DIFF TOXIN PCR NEGATIVE (NEGATIVE)
--- NOTE | 2016-12-06 09:18 | HHI.PR ---
Subjective Remarks This is a pleasant 71 y/o Female who came to ER from [facility] after she fell landed on her Left BKA Stump, denies chest pain at this time but her Troponin level is trending up complaint on admission of Generalized weakness, Vomit at this time in her bedroom stable as we know she has Hypertension, DM II, CAD, Hyperlipidemia, GERD, Anxiety/ Depression PAD, Restless leg syndrome, admitted with Diagnosis of Cholecystitis,CT of the abdomen/pelvis shows inflammation of the gallbladder. was started on Zosyn. Gallbladder ultrasound ordered. GI specialist consult added today. Anti-emetics as needed. she has Poorly controlled DM II with Hemoglobin A1C in September this year 17.5, asked for a new one on this admission. Hypertension controlled. following acute kidney injury and Potassium stat, also will get new Lactic acid stat and C Diff, following Troponin trend. no chest pain. get a new ECG. 12/06: Seen by GI specialist, for Nausea and vomit of unclear etiology, US some wall thickening and sludge within the gallbladder. No definite positive sonographic Michelle's sign CT 12-05-16--> The gallbladder is distended with an indistinct wall and some questionable pericholecystic fluid. Correlate for acute cholecystitis. Coronary atherosclerotic disease with small bilateral pleural effusions. C Diff negative, recommended General Surgery consult performed. the patient has dry mucous Membranes, giving Normal saline bolus, the patient denies any abdominal pain at this time. Objective Vital Signs Date Time Temp Pulse Resp B/P Pulse Ox O2 Delivery O2 Flow Rate FiO2 12/06/16 04:21 97.4 93 18 136/69 96 12/06/16 01:00 Room Air 12/05/16 23:30 98.5 65 18 138/68 100 12/05/16 20:11 Nasal Cannula 2.00 12/05/16 19:43 Nasal Cannula 2.00 12/05/16 19:42 97.4 68 18 135/60 97 12/05/16 16:01 99.0 70 16 135/67 92 12/05/16 11:36 98.4 65 16 127/60 96 12/05/16 10:03 94 Nasal Cannula 2.00 I/O 12/05/16 12/05/16 12/05/16 12/06/16 12/06/16 12/06/16 07:00 15:00 23:00 07:00 15:00 23:00 Intake Total 462 ml 1068 ml 1106 ml 1074 ml Balance 462 ml 1068 ml 1106 ml 1074 ml Intake Oral 240 ml 340 ml 360 ml 360 ml IV Total 222 ml 728 ml 746 ml 714 ml # Voids 2 2 3 5 # Bowel Movements 1 3 1 6 Result Diagram: 12/06/16 0447 12/06/16 0447 Imaging Last Impressions Gall Bladder Ultrasound 12/05/16 0102 Signed Impressions: Service Date/Time: Monday, December 05, 2016 02:22 - CONCLUSION: There is some wall thickening and sludge within the gallbladder. No definite positive sonographic Michelle's sign Brain Carlin MD Abdomen/Pelvis CT 12/05/16 0006 Signed Impressions: Service Date/Time: Monday, December 05, 2016 00:20 - CONCLUSION: The gallbladder is distended with an indistinct wall and some questionable pericholecystic fluid. Correlate for acute cholecystitis. Coronary atherosclerotic disease with small bilateral pleural effusions. Brain Carlin MD Chest X-Ray 12/04/16 0000 Signed Impressions: Service Date/Time: Sunday, December 04, 2016 22:29 - CONCLUSION: Stable scarring left upper lobe and right midlung zone. Brain Carlin MD Procedures None Other Results Laboratory Tests Test 12/04/16 12/04/16 12/05/16 12/05/16 22:30 23:25 13:06 21:53 B-Type Natriuretic Peptide 251 PG/ML B-Hydroxybutyrate 0.20 MMOL/L Urine Color YELLOW Urine Turbidity CLEAR Urine pH 5.5 Urine Specific [place] 1.016 Urine Protein TRACE mg/dL Urine Glucose (UA) NEG mg/dL Urine Ketones NEG mg/dL Urine Occult Blood TRACE Urine Nitrite NEG Urine Bilirubin NEG Urine Urobilinogen LESS THAN 2.0 MG/DL Urine Leukocyte Esterase SMALL Urine RBC 1 /hpf Urine WBC 7 /hpf Urine Squamous Epithelial <1 /hpf Cells Urine Renal Epithelial Cells <1 /hpf Urine Hyaline Casts 45 /lpf Urine Mucus FEW /lpf Microscopic Urinalysis Comment CATH-CULT NOT IND Prothrombin Time 11.9 SEC Prothromb Time International 1.1 RATIO Ratio Hemoglobin A1c 9.2 % Lactic Acid Level 1.1 mmol/L Direct Bilirubin 0.2 MG/DL Indirect Bilirubin 0.5 MG/DL Total Creatine Kinase 423 U/L Creatine Kinase MB 2.3 NG/ML Creatine Kinase MB % 0.5 % Troponin I 0.06 NG/ML Stool C. difficile Toxin (PCR) NEGATIVE Stl C. difficile Toxin PRESUMPTIVE Epiderm 027 NEGATIVE Test 12/06/16 04:47 White Blood Count 10.4 TH/MM3 Red Blood Count 3.59 MIL/MM3 Hemoglobin 9.7 GM/DL Hematocrit 30.9 % Mean Corpuscular Volume 85.9 FL Mean Corpuscular Hemoglobin 27.0 PG Mean Corpuscular Hemoglobin 31.5 % Concent Red Cell Distribution Width 17.2 % Platelet Count 212 TH/MM3 Mean Platelet Volume 9.1 FL Neutrophils (%) (Auto) 74.7 % Lymphocytes (%) (Auto) 14.3 % Monocytes (%) (Auto) 7.9 % Eosinophils (%) (Auto) 2.6 % Basophils (%) (Auto) 0.5 % Neutrophils # (Auto) 7.8 TH/MM3 Lymphocytes # (Auto) 1.5 TH/MM3 Monocytes # (Auto) 0.8 TH/MM3 Eosinophils # (Auto) 0.3 TH/MM3 Basophils # (Auto) 0.1 TH/MM3 CBC Comment DIFF FINAL Differential Comment Sodium Level 142 MEQ/L Potassium Level 4.3 MEQ/L Chloride Level 105 MEQ/L Carbon Dioxide Level 29.3 MEQ/L Anion Gap 8 MEQ/L Blood Urea Nitrogen 19 MG/DL Creatinine 1.32 MG/DL Estimat Glomerular Filtration 40 ML/MIN Rate Random Glucose 152 MG/DL Calcium Level 8.4 MG/DL Total Bilirubin 0.9 MG/DL Aspartate Amino Transf 40 U/L (AST/SGOT) Alanine Aminotransferase 19 U/L (ALT/SGPT) Alkaline Phosphatase 92 U/L Total Protein 6.6 GM/DL Albumin 3.2 GM/DL Objective Remarks GENERAL: Elderly female in no acute distress. HEENT: Normocephalic, atraumatic. Pupils equal, round and reactive. Extraocular movements intact. No scleral icterus. No injection or drainage. Oropharynx is clear. Mucous membranes are moist. CARDIOVASCULAR: Regular rate and rhythm without murmurs, gallops, or rubs. RESPIRATORY: Clear to auscultation. No wheezes, rales, or rhonchi. Breathing is non-labored. GASTROINTESTINAL: Abdomen soft, non-tender, nondistended. EXTREMITIES: Left BKA. PSYCH: Alert and oriented x 3. Medications and IVs Current Medications Medications (Trade) Dose Ordered Sig/Piper Route Start Time Stop Time Status Last Admin (NS 1000 ml Inj) 1,000 ml @ 100 mls/hr Q10H IV 12/05/16 01:08 12/05/16 21:19 (Zofran Inj) 4 mg Q6H PRN IVP 12/05/16 01:15 (Heparin Inj) 5,000 units Q12H SQ 12/05/16 06:00 12/06/16 05:13 (Narcan Inj) 0.4 mg UNSCH PRN IV 12/05/16 01:15 (Milk Of Magnesia Liq) 30 ml Q12H PRN PO 12/05/16 01:15 (Senokot) 17.2 mg Q12H PRN PO 12/05/16 01:15 (Dulcolax Supp) 10 mg DAILY PRN RECTAL 12/05/16 01:15 Lactulose 30 ml 30 ml DAILY PRN PO 12/05/16 01:15 (Zosyn 3.375 Gm Premix) 50 ml @ 100 mls/hr Q8H IV 12/05/16 09:30 12/06/16 01:59 (D50w (Vial) Inj) 50 ml UNSCH PRN IV 12/05/16 01:45 (Glucagon Inj) 1 mg UNSCH PRN OTHER 12/05/16 01:45 (Lipitor) 80 mg HS PO 12/05/16 21:00 12/05/16 21:19 (Allbee C) 1 tab DAILY PO 12/05/16 09:00 12/05/16 08:40 (Coreg) 3.125 mg BID PO 12/05/16 09:00 12/05/16 21:19 (CeleXA) 10 mg DAILY PO 12/05/16 09:00 12/05/16 08:41 (Folate) 3 mg DAILY PO 12/05/16 09:00 12/05/16 08:41 (Neurontin) 300 mg TID PO 12/05/16 09:00 12/05/16 18:07 (Ativan) 0.5 mg HS PO 12/05/16 21:00 12/05/16 21:19 (Oscal) 1,000 mg DAILY PO 12/05/16 09:00 12/05/16 08:40 (Ferrous Sulfate) 325 mg BID PO 12/05/16 09:00 12/05/16 21:19 (Theragran) 1 tab DAILY PO 12/05/16 09:00 12/05/16 08:40 (Vitamin B1) 500 mg DAILY PO 12/05/16 09:00 12/05/16 08:40 A/P Assessment and Plan 1. Acute cholecystitis: Patient has been having nausea and vomiting. CT of the abdomen/pelvis shows inflammation of the gallbladder. Continue Zosyn, Abdominal Ultrasound, some wall thickening and sludge within the gallbladder, recommended by GI specialist to consult General instructional technology specialist if pain continue, but even she states has no pain she has Re admission I think will be important to Use our General Recycling Operator Team Expertise to give us input about the case and follow their recommendations. 2. Diabetes mellitus type 2: Continue 70/30 insulin. Monitor Accu-Cheks and cover with sliding scale insulin. stable 3. Hypertension: Continue Coreg. Hold lisinopril secondary to elevated creatinine. controlled. 4. Acute kidney injury superimposed on chronic kidney disease stage III: Monitor BUN and creatinine. IV fluids. giving one bolus of IV Normal Saline. 500 ml and continue 100 ml per hour. 5. GERD: Continue Protonix. 6. Hyperlipidemia: Continue statin. 7. Coronary artery disease: Patient denies chest pain. CK slightly elevated. Troponin 0.05. Check serial cardiac enzymes and EKGs. equivocal Troponin level secondary to acute renal injury. asked for Echocardiogram to get her Cardiac function. DVT prophylaxis: Heparin. Discharge Planning Once cleared by specialists. Lonnie Brooks MD Dec 06, 2016 09:18
[2016-12-06] MEDS: VITAMIN B COMPLEX/VIT C TAB PO SCH (09:58)
[2016-12-06] MEDS: THIAMINE HCL 100 MG TAB PO SCH (09:58)
[2016-12-06] MEDS: FERROUS SULFATE 325 MG (65 MG ELEMENTAL IRON) TAB PO SCH ×2 (09:58→20:45)
[2016-12-06] MEDS: FOLIC ACID 1 MG TAB PO SCH (09:58)
[2016-12-06] MEDS: CARVEDILOL 3.125 MG TAB PO SCH ×2 (09:59→20:45)
[2016-12-06] MEDS: MULTIVITAMIN TAB PO SCH (09:59)
[2016-12-06] MEDS: GABAPENTIN 300 MG CAP PO SCH ×3 (09:59→18:45)
[2016-12-06] MEDS: CALCIUM CARBONATE 1.25 GM (CA 500 MG) TAB PO SCH (09:59)
[2016-12-06] MEDS: CITALOPRAM HYDROBROMIDE 20 MG TAB PO SCH (09:59)
[2016-12-06] MEDS ORDERED: SODIUM CHLORID 0.9% 500 ML INJ 500 ML IV ONE (11:00)
--- NOTE | 2016-12-06 11:49 | HHI.GIFU ---
Subjective Remarks Pt resting comfortably in bed. Denies pain, n/v. Objective Vitals I&O Vital Signs Date Time Temp Pulse Resp B/P Pulse Ox O2 Delivery O2 Flow Rate FiO2 12/06/16 08:00 97.4 68 17 104/52 93 12/06/16 04:21 97.4 93 18 136/69 96 12/06/16 01:00 Room Air 12/05/16 23:30 98.5 65 18 138/68 100 12/05/16 20:11 Nasal Cannula 2.00 12/05/16 19:43 Nasal Cannula 2.00 12/05/16 19:42 97.4 68 18 135/60 97 12/05/16 16:01 99.0 70 16 135/67 92 I/O 12/05/16 12/05/16 12/05/16 12/06/16 12/06/16 12/06/16 07:00 15:00 23:00 07:00 15:00 23:00 Intake Total 462 ml 1068 ml 1106 ml 1074 ml Balance 462 ml 1068 ml 1106 ml 1074 ml Intake Oral 240 ml 340 ml 360 ml 360 ml IV Total 222 ml 728 ml 746 ml 714 ml # Voids 2 2 3 5 # Bowel Movements 1 3 1 6 Laboratory Laboratory Tests Test 12/05/16 12/05/16 12/06/16 13:06 21:53 04:47 Prothrombin Time 11.9 Prothromb Time International 1.1 Ratio Potassium Level 4.3 4.3 Hemoglobin A1c 9.2 Lactic Acid Level 1.1 Total Bilirubin 0.7 0.9 Direct Bilirubin 0.2 Indirect Bilirubin 0.5 Aspartate Amino Transf 44 40 (AST/SGOT) Alanine Aminotransferase 19 19 (ALT/SGPT) Alkaline Phosphatase 92 92 Total Creatine Kinase 423 Creatine Kinase MB 2.3 Creatine Kinase MB % 0.5 Troponin I 0.06 Total Protein 5.9 6.6 Albumin 2.9 3.2 Stool C. difficile Toxin (PCR) NEGATIVE Stl C. difficile Toxin PRESUMPTIVE Epiderm 027 NEGATIVE White Blood Count 10.4 Red Blood Count 3.59 Hemoglobin 9.7 Hematocrit 30.9 Mean Corpuscular Volume 85.9 Mean Corpuscular Hemoglobin 27.0 Mean Corpuscular Hemoglobin 31.5 Concent Red Cell Distribution Width 17.2 Platelet Count 212 Mean Platelet Volume 9.1 Neutrophils (%) (Auto) 74.7 Lymphocytes (%) (Auto) 14.3 Monocytes (%) (Auto) 7.9 Eosinophils (%) (Auto) 2.6 Basophils (%) (Auto) 0.5 Neutrophils # (Auto) 7.8 Lymphocytes # (Auto) 1.5 Monocytes # (Auto) 0.8 Eosinophils # (Auto) 0.3 Basophils # (Auto) 0.1 CBC Comment DIFF FINAL Differential Comment Sodium Level 142 Chloride Level 105 Carbon Dioxide Level 29.3 Anion Gap 8 Blood Urea Nitrogen 19 Creatinine 1.32 Estimat Glomerular Filtration 40 Rate Random Glucose 152 Calcium Level 8.4 Date/Time Procedure Status Source Growth 12/05/16 21:53 Cryptosporidium Exam Resulted Stool Stool Pending 12/05/16 21:53 Giardia Antigen (JENNY) Resulted Stool Stool Pending 12/05/16 21:53 Stool Occult Blood (JENNY) - Final Resulted Stool Stool HEMOCCULT NEGATIVE 12/05/16 21:53 Received Stool Stool Pending 12/04/16 22:30 Aerobic Blood Culture - Preliminary Resulted Blood Peripheral NO GROWTH IN 2 DAYS 12/04/16 22:30 Anaerobic Blood Culture - Preliminary Resulted Blood Peripheral NO GROWTH IN 2 DAYS Imaging Last Impressions Gall Bladder Ultrasound 12/05/16 0102 Signed Impressions: Service Date/Time: Monday, December 05, 2016 02:22 - CONCLUSION: There is some wall thickening and sludge within the gallbladder. No definite positive sonographic Michelle's sign Brain Carlin MD Abdomen/Pelvis CT 12/05/16 0006 Signed Impressions: Service Date/Time: Monday, December 05, 2016 00:20 - CONCLUSION: The gallbladder is distended with an indistinct wall and some questionable pericholecystic fluid. Correlate for acute cholecystitis. Coronary atherosclerotic disease with small bilateral pleural effusions. Brain Carlin MD Chest X-Ray 12/04/16 0000 Signed Impressions: Service Date/Time: Sunday, December 04, 2016 22:29 - CONCLUSION: Stable scarring left upper lobe and right midlung zone. Brain Carlin MD Physical Exam HEENT: PERRL; normocephalic; atraumatic; no jaundice. CHEST: CTA CARDIAC: RRR ABDOMEN: Soft, nondistended, nontender; no hepatosplenomegaly; bowel sounds are present in all four quadrants. EXTREMITIES: No clubbing, cyanosis, or edema. SKIN: Normal; no rash; no jaundice. SLATE SPLITTER: No focal deficits; alert and oriented times three. Assessment and Plan Plan ASSESSMENT - n/v - unclear etiology - imaging indicative of cholecystitis, pt asx today. US 12-05-16--> some wall thickening and sludge within the gallbladder. No definite positive sonographic Michelle's sign CT 12-05-16--> The gallbladder is distended with an indistinct wall and some questionable pericholecystic fluid. Correlate for acute cholecystitis. Coronary atherosclerotic disease with small bilateral pleural effusions. Pt denies pain, not currently nauseous or vomiting. GS consulted. Pt does not want surgery and is asymptomatic at this time. - diarrhea - onset yesterday. unclear etiology, accompanied by n/v. c diff neg. other stool cx pending - mild anemia - 9.5 on admission. 10-15-16 was 9.8 so this is not far from her baseline, does have CKD. hemoccult neg. - WILLIE on CKD - per primary PLAN - await stool cx - monitor labs - supportive care - f/u with GI as outpatient - GI will sign off This pt seen by myself and Dr eMlchor and this note is written on his behalf. Poly Lou Dec 06, 2016 11:49
--- NOTE | 2016-12-06 12:29 | PD.CONS ---
cc: Landne Curry MD [facility] Service General Surgery Consult Requested By Dr. Cantor Reason for Consult Evaluation of acute cholecystitis Primary Care Physician Non-Staff History of Present Illness This is a 71-year-old female with a past medical history of hypertension, diabetes mellitus type 2, coronary artery disease, hyperlipidemia, GERD, anxiety , depression, peripheral vascular disease, and restless leg syndrome. She presents from the rehabilitation center after a fall she had there. She was reaching for something and slipped off the chair. She landed on her left BKA stump. She comes in complaining of pain and weakness. She states she did not have any abdominal pain but a CAT scan of the abdomen and pelvis was obtained in the emergency department which shows a gallbladder that is distended with some question of pericholecystic fluid. A gallbladder ultrasound was completed for further investigation revealed some gallbladder wall thickening and sludge. She has a normal white blood cell count. All her other laboratory essentially unremarkable. She was started on Zosyn. She has remain afebrile. She reports that she has not had any right upper quadrant pain or dietary intolerance. She has had diarrhea since admission. A General Surgery consultation has been requested for evaluation of acute cholecystitis for possible laparoscopic cholecystectomy Review of Systems Constitutional: COMPLAINS OF: Fatigue, DENIES: Fever, Chills Endocrine: DENIES: Polydipsia, Polyuria, Polyphagia Eyes: DENIES: Blurred vision Ears, nose, mouth, throat: DENIES: Hearing loss, Vertigo Respiratory: DENIES: Cough Cardiovascular: DENIES: Chest pain Gastrointestinal: COMPLAINS OF: Diarrhea, DENIES: Abdominal pain, Nausea, Vomiting Genitourinary: DENIES: Urinary frequency, Urinary incontinence Musculoskeletal: COMPLAINS OF: Muscle aches (pain at left BKA stump site status post fall), DENIES: Joint pain Integumentary: DENIES: Abnormal pigmentation Hematologic/lymphatic: DENIES: Bruising Immunologic/allergic: DENIES: Eczema Neurologic: DENIES: Headache, Localized weakness Psychiatric: DENIES: Mood changes, Depression, Hallucinations Past Family Social History Past Medical History Hypertension Diabetes mellitus type 2 Coronary artery disease Hyperlipidemia GERD Anxiety Depression Peripheral vascular disease Restless leg syndrome Past Surgical History Cardiac catheterization with stent placement 2 Left below the knee amputation Bilateral carpal tunnel release Reported Medications Zofran Gabapentin Citalopram Lorazepam Code Robert MiraLAX Zantac Atorvastatin NovoLog Ferrous sulfate Furosemide Multivitamin Dry Prong Liquid protein Calcium supplement Potassium chloride Selenium Vitamin B complex tablet Folic acid Thiamine Vitamin D3 Allergies: Coded Allergies: Sulfa (Verified Allergy, Severe, Irritability/Anxiety, 12/04/16) Active Ordered Medications Current Medications Medications (Trade) Dose Ordered Sig/Piper Route Start Time Stop Time Status Last Admin (NS 1000 ml Inj) 1,000 ml @ 100 mls/hr Q10H IV 12/05/16 01:08 12/05/16 21:19 (Zofran Inj) 4 mg Q6H PRN IVP 12/05/16 01:15 (Heparin Inj) 5,000 units Q12H SQ 12/05/16 06:00 12/06/16 05:13 (Narcan Inj) 0.4 mg UNSCH PRN IV 12/05/16 01:15 (Milk Of Magnesia Liq) 30 ml Q12H PRN PO 12/05/16 01:15 (Senokot) 17.2 mg Q12H PRN PO 12/05/16 01:15 (Dulcolax Supp) 10 mg DAILY PRN RECTAL 12/05/16 01:15 Lactulose 30 ml 30 ml DAILY PRN PO 12/05/16 01:15 (Zosyn 3.375 Gm Premix) 50 ml @ 100 mls/hr Q8H IV 12/05/16 09:30 12/06/16 10:00 (D50w (Vial) Inj) 50 ml UNSCH PRN IV 12/05/16 01:45 (Glucagon Inj) 1 mg UNSCH PRN OTHER 12/05/16 01:45 (Lipitor) 80 mg HS PO 12/05/16 21:00 12/05/16 21:19 (Allbee C) 1 tab DAILY PO 12/05/16 09:00 12/06/16 09:58 (Coreg) 3.125 mg BID PO 12/05/16 09:00 12/06/16 09:59 (CeleXA) 10 mg DAILY PO 12/05/16 09:00 12/06/16 09:59 (Folate) 3 mg DAILY PO 12/05/16 09:00 12/06/16 09:58 (Neurontin) 300 mg TID PO 12/05/16 09:00 12/06/16 09:59 (Ativan) 0.5 mg HS PO 12/05/16 21:00 12/05/16 21:19 (Oscal) 1,000 mg DAILY PO 12/05/16 09:00 12/06/16 09:59 (Ferrous Sulfate) 325 mg BID PO 12/05/16 09:00 12/06/16 09:58 (Theragran) 1 tab DAILY PO 12/05/16 09:00 12/06/16 09:59 (Vitamin B1) 500 mg DAILY PO 12/05/16 09:00 12/06/16 09:58 Family History Noncontributory to gallbladder disease Social History Denies tobacco use Denies illicit drug use Denies EtOH use Currently in rehabilitation placement at [facility] Physical Exam Vital Signs Vital Signs Date Time Temp Pulse Resp B/P Pulse Ox O2 Delivery O2 Flow Rate FiO2 12/06/16 08:00 97.4 68 17 104/52 93 12/06/16 04:21 97.4 93 18 136/69 96 12/06/16 01:00 Room Air 12/05/16 23:30 98.5 65 18 138/68 100 12/05/16 20:11 Nasal Cannula 2.00 12/05/16 19:43 Nasal Cannula 2.00 12/05/16 19:42 97.4 68 18 135/60 97 12/05/16 16:01 99.0 70 16 135/67 92 Physical Exam GENERAL: 71 year old female looks older than stated age SKIN: Warm and dry. HEAD: Atraumatic. Normocephalic. EYES: Pupils equal and round. No scleral icterus. No injection or drainage. ENT: No nasal bleeding or discharge. Mucous membranes pink and moist. NECK: Trachea midline. CARDIOVASCULAR: Regular rate and rhythm. RESPIRATORY: No accessory muscle use. Clear to auscultation. Breath sounds equal bilaterally. GASTROINTESTINAL: Abdomen soft, non-tender, nondistended. No visible scars on abdomen. MUSCULOSKELETAL: s/p LEFT BKA; otherwise normal. NEUROLOGICAL: Awake and alert. No obvious cranial nerve deficits. Motor grossly within normal limits. Five out of 5 muscle strength in the arms and legs. Normal speech. PSYCHIATRIC: Appropriate mood and affect; insight and judgment normal. Laboratory Laboratory Tests Test 12/05/16 12/05/16 12/06/16 13:06 21:53 04:47 Prothrombin Time 11.9 Prothromb Time International 1.1 Ratio Potassium Level 4.3 4.3 Hemoglobin A1c 9.2 Lactic Acid Level 1.1 Total Bilirubin 0.7 0.9 Direct Bilirubin 0.2 Indirect Bilirubin 0.5 Aspartate Amino Transf 44 40 (AST/SGOT) Alanine Aminotransferase 19 19 (ALT/SGPT) Alkaline Phosphatase 92 92 Total Creatine Kinase 423 Creatine Kinase MB 2.3 Creatine Kinase MB % 0.5 Troponin I 0.06 Total Protein 5.9 6.6 Albumin 2.9 3.2 Stool C. difficile Toxin (PCR) NEGATIVE Stl C. difficile Toxin PRESUMPTIVE Epiderm 027 NEGATIVE White Blood Count 10.4 Red Blood Count 3.59 Hemoglobin 9.7 Hematocrit 30.9 Mean Corpuscular Volume 85.9 Mean Corpuscular Hemoglobin 27.0 Mean Corpuscular Hemoglobin 31.5 Concent Red Cell Distribution Width 17.2 Platelet Count 212 Mean Platelet Volume 9.1 Neutrophils (%) (Auto) 74.7 Lymphocytes (%) (Auto) 14.3 Monocytes (%) (Auto) 7.9 Eosinophils (%) (Auto) 2.6 Basophils (%) (Auto) 0.5 Neutrophils # (Auto) 7.8 Lymphocytes # (Auto) 1.5 Monocytes # (Auto) 0.8 Eosinophils # (Auto) 0.3 Basophils # (Auto) 0.1 CBC Comment DIFF FINAL Differential Comment Sodium Level 142 Chloride Level 105 Carbon Dioxide Level 29.3 Anion Gap 8 Blood Urea Nitrogen 19 Creatinine 1.32 Estimat Glomerular Filtration 40 Rate Random Glucose 152 Calcium Level 8.4 Date/Time Procedure Status Source Growth 12/05/16 21:53 Cryptosporidium Exam Resulted Stool Stool Pending 12/05/16 21:53 Giardia Antigen (JENNY) Resulted Stool Stool Pending 12/05/16 21:53 Stool Occult Blood (JENNY) - Final Resulted Stool Stool HEMOCCULT NEGATIVE 12/05/16 21:53 Received Stool Stool Pending 12/04/16 22:30 Aerobic Blood Culture - Preliminary Resulted Blood Peripheral NO GROWTH IN 2 DAYS 12/04/16 22:30 Anaerobic Blood Culture - Preliminary Resulted Blood Peripheral NO GROWTH IN 2 DAYS Result Diagram: 12/06/16 0447 12/06/16 0447 Imaging Last 48 hours Impressions Gall Bladder Ultrasound 12/05/16 0102 Signed Impressions: Service Date/Time: Monday, December 05, 2016 02:22 - CONCLUSION: There is some wall thickening and sludge within the gallbladder. No definite positive sonographic Michelle's sign Brain Carlin MD Abdomen/Pelvis CT 12/05/16 0006 Signed Impressions: Service Date/Time: Monday, December 05, 2016 00:20 - CONCLUSION: The gallbladder is distended with an indistinct wall and some questionable pericholecystic fluid. Correlate for acute cholecystitis. Coronary atherosclerotic disease with small bilateral pleural effusions. Brain Carlin MD Assessment and Plan Assessment and Plan 71 year old female admitted [facility] fall at [facility] with weakness; CT abd/pelvis shows distended gallbladder with small amount of pericholecystic fluid -Advance diet as tolerated -Continue Zosyn -Continue to follow abdominal exam---patient has no RUQ pain -Patient with multiple medical problems and poor surgical candidate; would recommend non operative treatment -Also patient does not want to have surgery for laparoscopic cholecystectomy -Thank you for this consult -We will be able if needed -Plan was discussed with Dr. Curry Discussed Condition With Dr. Curry Ms. Larkin Attending Statement I personally evaluated this patient, spoke with the patient and examined her abdomen. She is sitting up eating a hamburger, She denies abdominal pain. She has no discomfort to palpation in the RUQ. I reviewed her images on the computer of the Ct and US. A distended GB with sludge is seen. I discussed with the patient the classic symptoms of GB disease, including complications of acute cholecystitis and gallstone pancreatitis. We covered the treatment of lap [place]. She does not want any GB surgery at this time. She has no pain. I told her if she develops symptoms AND wants surgery, we would be available to her to try to help. We will sign off. Please call if needed. Thank you. The exam, history, and the medical decision-making described in the above note were completed with the assistance of the mid-level provider. I reviewed and agree with the findings presented. I attest that I had a [id number] encounter with the patient on the same day, and personally performed and documented my assessment and findings in the medical record. Amisha Sutton Dec 06, 2016 12:29 Landen Curry MD Dec 06, 2016 17:37
[2016-12-06] MEDS: ATORVASTATIN 80 MG TAB PO SCH (20:45)
[2016-12-06] MEDS ORDERED: WITCH HAZEL 50%/GLYCERIN 12.5% 40 PAD JAR TOPICAL PRN (21:15)
[2016-12-06] MEDS: LORazepam 0.5 MG TAB PO SCH (22:17)
[2016-12-07] VITALS (8 sets, daily range): BP systolic 109–160; BP diastolic 52–83; PULSE 62–80; RESP 17–18; TEMP 96.7–98.5; O2SAT 92–96
[2016-12-07] MEDS: INSULIN ASPART SUPPLEMENTAL SCALE SQ SCH ×4 (06:13→22:09)
[2016-12-07] MEDS: HEPARIN SODIUM - SQ 10,000 UNITS/ML VIAL SQ SCH ×2 (06:13→18:16)
[2016-12-07 09:17] LABS: BICARBONATE 23.5 MEQ/L (21.0-32.0); MAGNESIUM 1.6 MG/DL (1.5-2.5); POTASSIUM 4.4 MEQ/L (3.5-5.1)
[2016-12-07] MEDS: FOLIC ACID 1 MG TAB PO SCH (10:30)
[2016-12-07] MEDS: CALCIUM CARBONATE 1.25 GM (CA 500 MG) TAB PO SCH (10:30)
[2016-12-07] MEDS: THIAMINE HCL 100 MG TAB PO SCH (10:30)
[2016-12-07] MEDS: PIPERACIL-TAZO 3.375 GM PREMIX 50 ML IV SCH ×2 (10:30)
[2016-12-07] MEDS: CARVEDILOL 3.125 MG TAB PO SCH ×2 (10:31→22:06)
[2016-12-07] MEDS: FERROUS SULFATE 325 MG (65 MG ELEMENTAL IRON) TAB PO SCH ×2 (10:31→22:03)
[2016-12-07] MEDS: CITALOPRAM HYDROBROMIDE 20 MG TAB PO SCH (10:31)
[2016-12-07] MEDS: VITAMIN B COMPLEX/VIT C TAB PO SCH (10:31)
[2016-12-07] MEDS: MULTIVITAMIN TAB PO SCH (10:31)
[2016-12-07] MEDS: GABAPENTIN 300 MG CAP PO SCH ×3 (10:31→18:16)
[2016-12-07] MEDS: SODIUM CHLOR 0.9% 1000 ML INJ 1,000 ML IV SCH ×3 (12:46→23:08)
--- NOTE | 2016-12-07 14:20 | HHI.PR ---
Subjective Remarks Echocardiogram pending. Cardiac enzyme trend is consistent with her elevation in creatinine. No new complaints today from the patient. She has problems with restless leg syndrome at night. Objective Vital Signs Date Time Temp Pulse Resp B/P Pulse Ox O2 Delivery O2 Flow Rate FiO2 12/07/16 10:01 96 21 12/07/16 08:00 98.4 63 17 121/54 93 12/07/16 04:40 96.7 74 17 110/55 96 12/07/16 04:38 96 Nasal Cannula 2.00 12/07/16 00:27 97.6 71 18 109/52 92 12/06/16 19:59 97.4 63 18 137/62 92 12/06/16 19:15 Room Air 12/06/16 18:07 93 21 12/06/16 16:00 98.2 62 18 131/62 93 I/O 12/06/16 12/06/16 12/06/16 12/07/16 12/07/16 12/07/16 07:00 15:00 23:00 07:00 15:00 23:00 Intake Total 1074 ml 578 ml 1402 ml 1172 ml Balance 1074 ml 578 ml 1402 ml 1172 ml Intake Oral 360 ml 720 ml 480 ml IV Total 714 ml 578 ml 682 ml 692 ml # Voids 5 8 3 # Bowel Movements 6 9 3 Result Diagram: 12/06/16 0447 12/07/16 0721 Procedures None Objective Remarks GENERAL: NAD, A&Ox3 HEAD: Normocephalic. NECK: Supple, trachea midline. No lymphadenopathy. EYES: No scleral icterus. No injection or drainage. CARDIOVASCULAR: Regular rate and rhythm without murmurs, gallops, or rubs. RESPIRATORY: Breath sounds equal bilaterally. No accessory muscle use. GASTROINTESTINAL: Abdomen soft, non-tender, nondistended. MUSCULOSKELETAL: No cyanosis, or edema. SKIN: Warm and dry. NEURO: No focal neurological deficitis. A/P Problem List: (1) Nausea & vomiting ICD Code: R11.2 (2) Generalized weakness ICD Code: R53.1 (3) Acute worsening of stage 3 chronic kidney disease ICD Code: N18.3 Assessment and Plan Assessment and Plan 71-year-old female admitted for weakness, vomiting, acute renal failure on chronic kidney disease Acute cholecystitis False-positive Asymptomatic Stop treatments Condition is likely chronic and related to sludge Patient declines any surgical options at this time Follow clinically Acute kidney injury on chronic kidney disease Improved with hydration Follow kidney function Diabetes mellitus type II Continue 70/30 insulin. Monitor Accu-Cheks Insulin sliding scale Hypertension Lisinopril to be avoided secondary to renal function Continue Coreg Follow blood pressures Restless leg syndrome Requip Coronary artery disease Asymptomatic Trend and troponin is consistent with trend and creatinine No further monitoring or workup needed at this time Hyperlipidemia Continue statin Gastroesophageal reflux disease No change to baseline treatments, asymptomatic currently DVT prophylaxis Heparin Discharge Planning Discharge pending no acute findings on echocardiogram Problem Qualifiers (1) Nausea & vomiting: Qualified Code: R11.2 - Non-intractable vomiting with nausea, unspecified vomiting type Romain Eastman MD Dec 07, 2016 14:20
[2016-12-07] MEDS: LORazepam 0.5 MG TAB PO PRN (18:16)
[2016-12-07] MEDS: LORazepam 0.5 MG TAB PO SCH (22:05)
[2016-12-07] MEDS: ATORVASTATIN 80 MG TAB PO SCH (22:05)
[2016-12-08 03:38] VITALS: BP 147/70; PULSE 69; RESP 18; TEMP 98.6; O2SAT 93
[2016-12-08] MEDS: LORazepam 0.5 MG TAB PO PRN ×2 (04:41→15:33)
[2016-12-08] MEDS: HEPARIN SODIUM - SQ 10,000 UNITS/ML VIAL SQ SCH (05:58)
[2016-12-08] MEDS: INSULIN ASPART SUPPLEMENTAL SCALE SQ SCH ×2 (07:00→11:52)
[2016-12-08 07:15] VITALS: BP 186/77; PULSE 78; RESP 18; TEMP 98.2; O2SAT 92
[2016-12-08] MEDS: SODIUM CHLOR 0.9% 1000 ML INJ 1,000 ML IV SCH (09:08)
[2016-12-08] MEDS: CARVEDILOL 3.125 MG TAB PO SCH (09:47)
[2016-12-08] MEDS: GABAPENTIN 300 MG CAP PO SCH ×2 (09:47→11:54)
[2016-12-08] MEDS: MULTIVITAMIN TAB PO SCH (09:48)
[2016-12-08] MEDS: THIAMINE HCL 100 MG TAB PO SCH (09:48)
[2016-12-08] MEDS: FERROUS SULFATE 325 MG (65 MG ELEMENTAL IRON) TAB PO SCH (09:48)
[2016-12-08] MEDS: FOLIC ACID 1 MG TAB PO SCH (09:48)
[2016-12-08] MEDS: CITALOPRAM HYDROBROMIDE 20 MG TAB PO SCH (09:48)
[2016-12-08] MEDS: CALCIUM CARBONATE 1.25 GM (CA 500 MG) TAB PO SCH (09:48)
[2016-12-08] MEDS: VITAMIN B COMPLEX/VIT C TAB PO SCH (09:49)
[2016-12-08 11:27] VITALS: BP 148/67; PULSE 70; RESP 18; TEMP 97.4; O2SAT 94
--- NOTE | 2016-12-08 11:49 | ECHRPT ---
Indication: Acute and subacute endocarditis, unspecified CONCLUSIONS The left ventricular systolic function is low normal with an estimated ejection fraction in the rang e of 50- 55%. Wall thickness is normal. Normal left ventricular size. Mild mitral valve regurgitation. There is mild tricuspid regurgitation. The estimated pulmonary arterial pressure is 53 mmHg. BP: 104 / 52 HR: 68 Rhythm: Sinus MEASUREMENTS (Male / Female) Normal Values Technical Quality:Fair 2D ECHO LV Diastolic Diameter PLAX 4.8 cm 4.2 - 5.9 / 3.9 - 5.3 cm LV Systolic Diameter PLAX 3.8 cm IVS Diastolic Thickness 0.9 cm 0.6 - 1.0 / 0.6 - 0.9 cm LVPW Diastolic Thickness 0.8 cm 0.6 - 1.0 / 0.6 - 0.9 cm LV Relative Wall Thickness 0.4 LVOT Diameter 1.8 cm M-MODE Aortic Root Diameter MM 2.2 cm LA Systolic Diameter MM 2.9 cm LA Ao Ratio MM 1.3 AV Cusp Separation MM 1.6 cm DOPPLER AV Peak Velocity 118.0 cm/s AV Peak Gradient 5.6 mmHg LVOT Peak Velocity 113.0 cm/s LVOT Peak Gradient 5.1 mmHg AV Area Cont Eq pk 2.4 cm MR Peak Velocity 314.5 cm/s MR Peak Gradient 39.6 mmHg Mitral E Point Velocity 97.5 cm/s Mitral A Point Velocity 110.0 cm/s Mitral E to A Ratio 0.9 LV E' Lateral Velocity 9.6 cm/s Mitral E to LV E' Lateral Ratio 10.2 LV E' Septal Velocity 9.4 cm/s Mitral E to LV E' Septal Ratio 10.4 TR Peak Velocity 328.0 cm/s TR Peak Gradient 43.0 mmHg PV Peak Velocity 107.0 cm/s PV Peak Gradient 4.6 mmHg FINDINGS LEFT VENTRICLE The left ventricular systolic function is low normal with an estimated ejection fraction in the rang e of 50- 55%. Wall thickness is normal. Normal left ventricular size. RIGHT VENTRICLE Normal right ventricular size and systolic function. LEFT ATRIUM The left atrial size is normal. RIGHT ATRIUM The right atrial size is normal. ATRIAL SEPTUM Normal atrial septal thickness without atrial level shunting by limited color doppler interrogation. AORTA The aortic root and proximal ascending aorta are normal in size on limited imaging. MITRAL VALVE Mild mitral valve regurgitation. AORTIC VALVE Trileaflet aortic valve. No aortic valve stenosis or regurgitation. TRICUSPID VALVE There is mild tricuspid regurgitation. The estimated pulmonary arterial pressure is 53 mmHg. PULMONARY VALVE The pulmonary valve is not well visualized. VESSELS The inferior vena cava is normal in size. PERICARDIUM No pericardial effusion. Brain Akbar MD, FACC (Electronically Signed) Final Date:08 December 2016 11:48
--- NOTE | 2016-12-08 15:55 | HHI.DS ---
Discharge Summary Admission Date Dec 05, 2016 at 1:08 am Discharge Date: Dec 08, 2016 Admitting Diagnosis Generalized weakness, vomiting, r/o acute cholecystitis (1) Cholecystitis ICD Code: K81.9 Diagnosis: Principal (2) S/P BKA (below knee amputation) unilateral ICD Code: Z89.519 (3) DM type 2 (diabetes mellitus, type 2) ICD Code: E11.9 (4) Acute worsening of stage 3 chronic kidney disease ICD Code: N18.3 (5) Elevated LFTs ICD Code: R79.89 (6) Hypertension ICD Code: I10 (7) GERD (gastroesophageal reflux disease) ICD Code: K21.9 (8) Coronary artery disease ICD Code: I25.10 (9) Fall ICD Code: W19.XXXA Procedures Echocardiogram Brief History - From Admission The patient is a 71-year-old female who presented to the ER from the halfway facility following a fall. She states that she was trying to reach for something and slipped. She landed on her left BKA stump. She reports pain in the stump. Over the last 2 days she has had nausea, vomiting. Denies chest pain or dyspnea. She also feels weak. CBC/BMP: 12/06/16 0447 12/07/16 0721 Significant Findings Laboratory Tests Test 12/06/16 12/07/16 04:47 07:21 Red Blood Count 3.59 MIL/MM3 (4.00-5.30) Hemoglobin 9.7 GM/DL (11.6-15.3) Hematocrit 30.9 % (35.0-46.0) Mean Corpuscular Hemoglobin 31.5 % Concent (32.0-36.0) Neutrophils (%) (Auto) 74.7 % (16.0-70.0) Neutrophils # (Auto) 7.8 TH/MM3 (1.8-7.7) Blood Urea Nitrogen 19 MG/DL (7-18) Creatinine 1.32 MG/DL 1.12 MG/DL (0.50-1.00) (0.50-1.00) Estimat Glomerular Filtration 40 ML/MIN (>89) 48 ML/MIN (>89) Rate Random Glucose 152 MG/DL 148 MG/DL (74-106) (74-106) Calcium Level 8.4 MG/DL 8.2 MG/DL (8.5-10.1) (8.5-10.1) Aspartate Amino Transf 40 U/L (15-37) (AST/SGOT) Albumin 3.2 GM/DL (3.4-5.0) Phosphorus Level 2.2 MG/DL (2.5-4.9) Hospital Course Mrs. Burns was admitted with generalized weakness and vomiting. Suspicion was present for cholecystitis based on imaging. However patient did not have any symptoms and after evaluation from GI and surgery was determined that her findings are chronic. Cholecystectomy was offered and patient declines in her present state. With IV hydration and antiemetics or vomiting resolved and she has resolution of her generalized weakness. She is found to be medically stable today. A cardiac workup including echocardiogram did not show any severe pathologies to explain her transient elevation in troponin. Etiology for the troponin elevation is likely secondary to a transient worsening of her renal function. Medically clear for discharge back to halfway facility today. Pt Condition on Discharge: Stable Discharge Disposition: Discharge to SNF Discharge Time: > 30 minutes Discharge Instructions DIET: Follow Instructions for: As Tolerated, No Restrictions Activities you can perform: Regular-No Restrictions Follow up Referrals: PCP Follow-up - 2 Weeks Continued Medications: Amino AC/Protein Hydr/Whey Pro (Prosource Plus Protein Liquid) 887 Ml Liquid 60 ML Atorvastatin (Atorvastatin) 80 Mg Tab 80 MG PO HS Cholesterol Management #30 Ref 0 TAB B Complex W/ C (Vitamin B Complex-C) 1 Cap Cap 1 TAB PO DAILY Calcium Carbonate (Calcium) 600 Mg Tab 1200 MG PO DAILY Carvedilol (Coreg) 3.125 Mg Tab 3.125 MG PO BID #60 Ref 0 TAB Cholecalciferol (Vitamin D3) 10,000 Unit Cap 85732 UNITS PO DAILY Nutritional Supplement #1 Ref 0 BOTTLE Citalopram (Citalopram) 10 Mg Tab 10 MG PO DAILY Control Depression #30 Ref [address] (Ferrous Sulfate DR) 325 Mg Tabdr 1 TAB PO BID Folic Acid (Folic Acid) 800 Mcg Tab 3 MG PO DAILY Nutritional Supplement Ref 0 TAB Furosemide (Lasix) 40 Mg Tab 40 MG PO DAILY #30 Ref 0 TAB Gabapentin (Gabapentin) 300 Mg Cap 300 MG PO TID #90 Ref 0 CAP Hydrocodone-Acetaminophen ([place]) 7.5-325 mg Tab 1 TAB PO Q6H PRN PAIN Ref 0 TAB Insulin Aspart Inj (Novolog Inj) 1,000 Unit/10 Ml Vial 1-9 UNITS SQ ACHS Max dose at bedtime:( )units; sugars less than 70,(0)units; sugars 150-199,(1) unit; sugars 200-249,(3) units; sugars 250-299,(5) units; sugars 300-349,(7) units; sugars greater than 349,(9) units Blood Sugar Management #10 Ref 0 ML Insulin Human Isophane-Regular 70-30 Inj (Novolin 70/30 Inj) 1,000 Units/10 Ml Inj 20 SQ BID Lorazepam (Lorazepam) 0.5 Mg Tab 0.5 MG PO HS SLEEP Ref 0 TAB Multivitamin (Once Daily) 1 Each Tablet 1 TAB PO DAILY Ondansetron (Zofran) 4 Mg Tab 4 MG PO Q6HR PRN NAUSEA OR VOMITING Ref 0 TAB Polyethylene Glycol 3350 Powder (Miralax Powder) 17 Gm Powd 17 GM PO DAILY Mix and dissolve one measuring cap-ful (17 grams) in water or juice. Constipation #1 Ref 0 CAN Potassium Chloride ER (K-Tab) 10 Meq Tab 10 MEQ PO DAILY Electrolyte Replacement #7 Ref 0 TAB Ranitidine HCl (Zantac 75) 75 Mg Tablet 1 TAB PO BID Selenium (Selenium) 200 Mcg Tab 200 MG PO DAILY Nutritional Supplement Ref 0 TAB Thiamine (Vitamin B-1) 250 Mg Tab 500 MG PO DAILY Nutritional Supplement Ref 0 TAB Romain Eastman MD Dec 08, 2016 3:55 pm
== END 2016-12-08 16:20 | DRG 445 ==
LOC: NEPE 22:14 → NEDA 12-05 01:08 → N06B 12-05 03:54
PROVIDERS: ADMIT Hospitalist; ATTEND Hospitalist
DX: K81.0 Acute cholecystitis (principal); N17.9 Acute kidney failure, unspecified; E11.22 Type 2 diabetes mellitus with diabetic chronic kidney disease; E11.51 Type 2 diabetes mellitus with diabetic peripheral angiopathy without gangrene; N18.3 Chronic kidney disease, stage 3 (moderate); I25.10 Atherosclerotic heart disease of native coronary artery without angina pectoris; E78.5 Hyperlipidemia, unspecified; F41.9 Anxiety disorder, unspecified; F32.9 Major depressive disorder, single episode, unspecified; M19.90 Unspecified osteoarthritis, unspecified site; I12.9 Hypertensive chronic kidney disease with stage 1 through stage 4 chronic kidney disease, or unspecified chronic kidney disease; J45.909 Unspecified asthma, uncomplicated; K21.9 Gastro-esophageal reflux disease without esophagitis; G25.81 Restless legs syndrome; R19.7 Diarrhea, unspecified; D64.9 Anemia, unspecified; I25.2 Old myocardial infarction; Z89.512 Acquired absence of left leg below knee; Z79.4 Long term (current) use of insulin; Z95.5 Presence of coronary angioplasty implant and graft; R53.1 Weakness
CPT/HCPCS: 71010; 74176; 76705; 80048; 80053; 80076; 81001; 82010; 82272; 82550; 82552; 82948; 83036; 83605; 83735; 83880; 84100; 84132; 84484; 85025; 85610; 87040; 87328; 87329; 87493; 87506; 93005; 93306; 96374; J1644; J1815; J2060; J2405; J2543; J7030; J7040; P9612

== ENCOUNTER 2017-03-17 19:46 | Emergency (ER) | payer MEDICARE, MEDICAID ==
[~2017-03-17] VITALS: Ht 152.4 cm; Wt 70.0 kg
[~2017-03-17 19:46] MED LIST changes: +CALC600T25 PO; +CHOL1CAP24 PO; +FERR325T2 PO; +FOLI800T PO; +FURO1TAB60 PO; +K-TA10TA PO; -LISI-519 PO; +MIRA3350 PO; +N7030SS SQ; -NOVO7030P2 SQ; +ONCETAB7 PO; -PANT40TA3 PO; +PROSLIQ; -ROPI.25 PO; +SELE1TAB PO; +VITA250T25 PO; +VITACAP9 PO; +ZANTTAB11 PO; +ZOFR4TAB PO
[2017-03-17 19:49] VITALS: BP 213/81; PULSE 86; RESP 26; TEMP 97.6; O2SAT 75
[2017-03-17 20:00] VITALS: O2SAT 95
[2017-03-17] MEDS ORDERED: SODIUM CHLORIDE 0.9% FLUSH 5 ML FLUSH IV FLUSH PRN (20:00)
--- NOTE | 2017-03-17 20:12 | RADRPT ---
EXAM DATE/TIME: 03/17/2017 20:03 [facility] COMPARISON: No previous studies available for comparison. INDICATIONS : Altered mental status. RADIATION DOSE: 31.24 CTDIvol (mGy) MEDICAL HISTORY : Diabetes mellitus type 2. SURGICAL HISTORY : Left BKA ENCOUNTER: Initial ACUITY: 1 day PAIN SCALE: 5/10 LOCATION: cranial TECHNIQUE: Multiple contiguous axial images were obtained of the head. Using automated exposure control and adj ustment of the mA and/or kV according to patient size, radiation dose was kept as low as reasonably a chievable to obtain optimal diagnostic quality images. DICOM format image data is available electro nically for review and comparison. FINDINGS: CEREBRUM: The ventricles are normal for age. No evidence of midline shift, mass lesion, hemorrhage or acute in farction. No extra-axial fluid collections are seen. POSTERIOR FOSSA: The cerebellum and brainstem are intact. The 4th ventricle is midline. The cerebellopontine angle i s unremarkable. EXTRACRANIAL: The visualized portion of the orbits is intact. SKULL: The calvaria is intact. No evidence of skull fracture. CONCLUSION: Normal examination for a patient of this age. Efraín Chaidez MD on March 17, 2017 at 20:09 Board Certified Radiologist. This report was verified electronically.
--- NOTE | 2017-03-17 20:30 | RADRPT ---
EXAM DATE/TIME: 03/17/2017 20:07 [facility] COMPARISON: No previous studies available for comparison. INDICATIONS : Right leg swelling. MEDICAL HISTORY : Myocardial infarction. Hypercholesterolemia. Hypertension. Glasses. Dentures. Chest pain. Gastroes ophageal reflux disease. Arthritis. Renal disease. Hemophilia. Neuropathy. SURGICAL HISTORY : Coronary stents. Anticoagulant therapy. Cardiac catheterization. Carpal tunnel. Left foot amputation. ENCOUNTER: Initial ACUITY: 1 day PAIN SCORE: 9/10 LOCATION: Right leg. TECHNIQUE: Venous ultrasound of the leg was performed from the inguinal ligament to the proximal calf. Real-jo ann e, color Doppler and spectral tracing, compression and augmentation techniques were used. FINDINGS: There is normal compressibility of the deep venous system from the inguinal region to the proximal ca lf. No echogenic clot is seen in the lumen of the common femoral, femoral, popliteal, and posterior tibial veins. There is a normal response of the venous system to proximal and distal augmentation an d respiration. Iliac vein patent CONCLUSION: Normal examination. No evidence DVT Efraín Chaidez MD on March 17, 2017 at 20:27 Board Certified Radiologist. This report was verified electronically.
[2017-03-17 20:37] VITALS: BP 165/75; PULSE 75; RESP 22; O2SAT 95
--- NOTE | 2017-03-17 20:38 | PD ---
HPI Chief Complaint: OD/ Ingestion Time Seen by Provider: 19:56 Travel History International Travel<30 days: No Contact w/Intl Traveler<30days: No Traveled to known affect area: No History of Present Illness HPI Patient is a 72 year old female who is brought in by EMS after she was found unresponsive at the assisted. Per EMS, she was hypoxic and minimally responsive to painful stimuli on their arrival. They report she had pinpoint pupils, so she was given 0.4mg Narcan and she immediately woke up. Per EMS, she has been awake since the Narcan, complaining of pain to her leg. She receives Lortab for pain at her NH, and she may have possibly received 3 pills of 7.5mg. She is also taking Dextromethorphan for a cough. She says she has had a cough for the past 3 weeks, but has been checked out and was told everything was fine. She does complain of some nausea and said she vomited 2 days ago. She denies any abdominal pain. She has not had any fever or chills. She denies any shortness of breath or chest pain. PFSH Past Medical History Hx Anticoagulant Therapy: Yes Arthritis: Yes Asthma: Yes Autoimmune Disease: No Anxiety: Yes Depression: Yes Heart Rhythm Problems: No Cancer: No Cardiac Catheterization: Yes Cardiovascular Problems: Yes High Cholesterol: Yes Chemotherapy: No Chest Pain: Yes Congestive Heart Failure: No COPD: No Diabetes: Yes Patient Takes Glucophage: No Diminished Hearing: No Endocrine: No Gastrointestinal Disorders: Yes GERD: Yes Genitourinary: Yes Hiatal Hernia: No Hypertension: Yes Immune Disorder: No Implanted Vascular Access Dvce: Yes Musculoskeletal: Yes (RESTLESS LEG SYNDROME) Neurologic: No Psychiatric: Yes Reproductive: No Respiratory: Yes Integumentary: Yes (WOUND TO LEFT FOOT.) Myocardial Infarction: Yes (05/2013) Radiation Therapy: No Sickle Cell Disease: No Sleep Apnea: No Thyroid Disease: No Ulcer: No Menopausal: Yes Past Surgical History AICD: No Body Medical Devices: 2 Stents Cardiac Surgery: Yes (CARDIAC STENTS) Coronary Stent: Yes (X 2 - 05/2013 & 07/2013) Ear Surgery: No Endocrine Surgery: No Eye Surgery: No Genitourinary Surgery: No Gynecologic Surgery: No Insulin Pump: No Joint Replacement: No Neurologic Surgery: No Oral Surgery: No Pacemaker: No Thoracic Surgery: No Other Surgery: Yes (2nd operation 10/27/16 on left leg amputation ) Social History Alcohol Use: No Tobacco Use: No Substance Use: No Allergies-Medications (Allergen,Severity, Reaction): Coded Allergies: Sulfa (Sulfonamide Antibiotics) (Unverified Allergy, Severe, Irritability/ Anxiety, 03/17/17) Reported Meds & Prescriptions Reported Meds & Active Scripts Active Reported Zantac (Ranitidine HCl) 150 Mg Tab 75 Mg PO BID Robitussin Cough Chest Congestion (Dextromethorphan-Guaifenesin) 10-200 Mg Cap 10 Ml PO Q6HR PRN Lantus Solostar Pen Inj (Insulin Glargine) 300 Unit/3 Ml Pen 10 Units SQ Novolog Mix 70-30 Inj (Insulin Aspart Prota 70%/Aspart 30%) 1,000 Unit/10 Ml Vial 40 Units SQ HS Vitamin D3 (Cholecalciferol) 10,000 Unit Tab 10,000 Units PO DAILY Macrobid (Nitrofurantoin Monoh/Nitrofur Macro) 100 Mg Cap 100 Mg PO BID Vitamin B-12 (Cyanocobalamin) 1,000 Mcg Tab 1,000 Mcg PO DAILY Furosemide 20 Mg Tab 20 Mg PO DAILY Novolog Mix 70-30 Inj (Insulin Aspart Prota 70%/Aspart 30%) 1,000 Unit/10 Ml Vial 30 Units SQ Citalopram (Citalopram Hydrobromide) 40 Mg Tab 40 Mg PO DAILY Magnesium Oxide 400 Mg Tab 400 Mg PO DAILY Folic Acid 0.8 Mg Tab 3 Mg PO DAILY Zofran (Ondansetron HCl) 4 Mg Tab 4 Mg PO Q6HR PRN [place] (Hydrocodone-Acetaminophen) 7.5-325 mg Tab 1 Tab PO Q6H PRN Ferrous Sulfate DR (Ferrous Sulfate) 325 Mg Tabdr 1 Tab PO BID K-Tab (Potassium Chloride) 10 Meq Tab 10 Meq PO DAILY Selenium 200 Mcg Tab 200 Mg PO DAILY Once Daily (Multivitamin) 1 Each Tablet 1 Tab PO DAILY Vitamin B Complex-C (B Complex W/ C) 1 Cap Cap 1 Tab PO DAILY Miralax Powder (Polyethylene Glycol 3350 Powder) 17 Gm Powd 17 Gm PO DAILY Mix and dissolve one measuring cap-ful (17 grams) in water or juice. Atorvastatin (Atorvastatin Calcium) 80 Mg Tab 80 Mg PO HS Coreg (Carvedilol) 3.125 Mg Tab 3.125 Mg PO BID Gabapentin 300 Mg Cap 300 Mg PO TID Lorazepam 0.5 Mg Tab 0.5 Mg PO HS Review of Systems Except as stated in HPI: all other systems reviewed are Neg General / Constitutional: No: Fever, Chills HENT: No: Headaches, Lightheadedness Cardiovascular: No: Chest Pain or Discomfort Respiratory: Positive: Cough, No: Shortness of Breath Gastrointestinal: Positive: Nausea, No: Abdominal Pain Genitourinary: No: Flank Pain Musculoskeletal: Positive: Edema, Pain Skin: No Rash, No Change in Pigmentation Neurologic: No: Weakness, Dizziness Physical Exam Narrative GENERAL: Awake and alert, in no acute distress. SKIN: Focused skin assessment warm/dry. No wounds. HEAD: Atraumatic. Normocephalic. EYES: Pupils equal and round. No scleral icterus. Extraocular movements intact. ENT: Mucous membranes pink and moist. NECK: Trachea midline. No JVD. CARDIOVASCULAR: Regular rate and rhythm. No murmur appreciated. RESPIRATORY: No accessory muscle use. Clear to auscultation. Breath sounds equal bilaterally. GASTROINTESTINAL: Abdomen soft, non-tender, nondistended. Hepatic and splenic margins not palpable. MUSCULOSKELETAL: No obvious deformities. No clubbing. No cyanosis. Edema of the right leg. Pedal pulses intact. NEUROLOGICAL: Awake and alert. No obvious cranial nerve deficits. Motor grossly within normal limits. Normal speech. PSYCHIATRIC: Appropriate mood and affect; insight and judgment normal. Data Data Last Documented VS Vital Signs Date Time Temp Pulse Resp B/P (MAP) Pulse Ox O2 Delivery O2 Flow Rate FiO2 03/17/17 20:37 75 22 165/75 (105) 95 Nasal Cannula 6.00 03/17/17 19:49 97.6 Orders Orders Electrocardiogram (03/17/17 19:56) Complete Blood Count With Diff (03/17/17 19:56) Comprehensive Metabolic Panel (03/17/17 19:56) Creatine Kinase (Cpk) (03/17/17 19:56) Prothrombin Time / Inr (Pt) (03/17/17 19:56) Act Partial Throm Time (Ptt) (03/17/17 19:56) Troponin I (03/17/17 19:56) Urinalysis - C+S If Indicated (03/17/17 19:56) Lactic Acid Sepsis Protocol (03/17/17 19:56) Chest, Single Ap (03/17/17 19:56) Ct Brain W/O Iv Contrast(Rout) (03/17/17 19:56) Blood Glucose (03/17/17 19:56) Ecg Monitoring (03/17/17 19:56) Iv Access Insert/Monitor (03/17/17 19:56) Oximetry (03/17/17 19:56) Sodium Chloride 0.9% Flush (Ns Flush) (03/17/17 20:00) Us Leg Venous Doppler (03/17/17 ) Cath For Specimen (03/17/17 22:06) Urine Culture (03/17/17 22:15) Labs Laboratory Tests Test 03/17/17 20:10 03/17/17 20:36 03/17/17 22:15 White Blood Count 15.5 TH/MM3 Red Blood Count 4.66 MIL/MM3 Hemoglobin 13.0 GM/DL Hematocrit 41.0 % Mean Corpuscular Volume 87.9 FL Mean Corpuscular Hemoglobin 28.0 PG Mean Corpuscular Hemoglobin Concent 31.8 % Red Cell Distribution Width 18.7 % Platelet Count 264 TH/MM3 Mean Platelet Volume 8.7 FL Neutrophils (%) (Auto) 84.0 % Lymphocytes (%) (Auto) 6.6 % Monocytes (%) (Auto) 7.7 % Eosinophils (%) (Auto) 1.3 % Basophils (%) (Auto) 0.4 % Neutrophils # (Auto) 13.0 TH/MM3 Lymphocytes # (Auto) 1.0 TH/MM3 Monocytes # (Auto) 1.2 TH/MM3 Eosinophils # (Auto) 0.2 TH/MM3 Basophils # (Auto) 0.1 TH/MM3 CBC Comment DIFF FINAL Differential Comment Prothrombin Time 11.8 SEC Prothromb Time International Ratio 1.1 RATIO Activated Partial Thromboplast Time 21.5 SEC Blood Urea Nitrogen 20 MG/DL Creatinine 1.55 MG/DL Random Glucose 225 MG/DL Total Protein 7.1 GM/DL Albumin 3.5 GM/DL Calcium Level 8.2 MG/DL Alkaline Phosphatase 104 U/L Aspartate Amino Transf (AST/SGOT) 48 U/L Alanine Aminotransferase (ALT/SGPT) 25 U/L Total Bilirubin 0.9 MG/DL Sodium Level 135 MEQ/L Potassium Level 5.8 MEQ/L Chloride Level 97 MEQ/L Carbon Dioxide Level 31.0 MEQ/L Anion Gap 7 MEQ/L Estimat Glomerular Filtration Rate 33 ML/MIN Total Creatine Kinase 125 U/L Troponin I 0.02 NG/ML Lactic Acid Level 0.9 mmol/L Urine Color YELLOW Urine Turbidity HAZY Urine pH 6.5 Urine Specific [place] 1.012 Urine Protein 30 mg/dL Urine Glucose (UA) NEG mg/dL Urine Ketones NEG mg/dL Urine Occult Blood NEG Urine Nitrite NEG Urine Bilirubin NEG Urine Urobilinogen LESS THAN 2.0 MG/DL Urine Leukocyte Esterase TRACE Urine WBC 6 /hpf Urine Amorphous Sediment RARE Urine Hyaline Casts 13 /lpf Urine Mucus FEW /lpf Microscopic Urinalysis Comment CATH-CULTURE IND MDM Medical Decision Making Medical Screen Exam Complete: Yes Emergency Medical Condition: Yes Medical Record Reviewed: Yes Differential Diagnosis Opiate overdose versus infection versus electrolyte abnormality Narrative Course Patient is a 72-year-old female comes in after she was found unresponsive at her assisted living facility. After Narcan, she immediately awoke. She has been awake and alert here in no acute distress. IV established, labs sent. Labs show an elevated white blood cell count 15. Urinalysis is positive for UTI. Chest x-ray performed shows no acute abnormalities. CT head shows no acute abnormalities. Ultrasound of the right leg shows no evidence of DVT. Patient has had no further issues while in the emergency department. She'll be discharged with a prescription for Levaquin. She is advised follow-up with her primary doctor. Advised to return to the ED as needed for any worsening symptoms. Last [address] 03/17/171955 Signed Impressions: Service Date/Time: Friday, March 17, 2017 20:03 - CONCLUSION: Normal examination for a patient of this age. Efraín Chaidez MD Chest X-Ray 03/17/171955 Signed Impressions: Service Date/Time: Friday, March 17, 2017 20:19 - CONCLUSION: Left ventricular cardiomegaly with mild pulmonary vascular congestion no consolidating infiltrates.. Efraín Chaidez MD Lower Extremity Ultrasound 03/17/17 0000 Signed Impressions: Service Date/Time: Friday, March 17, 2017 20:07 - CONCLUSION: Normal examination. No evidence DVT Efraín Chaidez MD Diagnosis Primary Impression: UTI (urinary tract infection) Qualified Codes: N30.00 - Acute cystitis without hematuria Patient Instructions: General Instructions, Urinary Tract Infection in Women ( ED) Additional Instructions: Follow-up with your primary care doctor. Drink plenty of fluids. Return to the ED as needed for any worsening symptoms. Take all of the antibiotic. The careful taking opiate pain relievers. Scripts Levofloxacin (Levaquin) 750 Mg Tablet 750 MG PO DAILY for Infection for 7 Days, #7 TAB 0 Refills Prov: Vicky Mcmillan MD 03/17/17 Disposition: 03 DISCHARGE TO SNF Condition: Stable Vicky Mcmillan MD Mar 17, 2017 20:38
--- NOTE | 2017-03-17 20:39 | RADRPT ---
EXAM DATE/TIME: 03/17/2017 20:19 [facility] COMPARISON: CHEST SINGLE AP, March 05, 2015, 17:14. INDICATIONS : Weakness. Syncope. MEDICAL HISTORY : None. SURGICAL HISTORY : None. ENCOUNTER: Initial ACUITY: 1 day PAIN SCORE: 6/10 LOCATION: Bilateral chest FINDINGS: There is mild hypoaeration with elevation the right hemidiaphragm. Left ventricular cardiomegaly appr eciated with mild prominence of central pulmonary vascularity suggesting possible mild pulmonary veno us congestion CHF. No consolidative infiltrates. CONCLUSION: Left ventricular cardiomegaly with mild pulmonary vascular congestion no consolidating infiltrates.. Efraín Chaidez MD on March 17, 2017 at 20:37 Board Certified Radiologist. This report was verified electronically.
[2017-03-17] MEDS ORDERED: FOLI800T PO (20:47)
[2017-03-17] MEDS ORDERED: NOVOLOGMXP SQ ×2 (20:47)
[2017-03-17] MEDS ORDERED: FURO20TA PO (20:47)
[2017-03-17] MEDS ORDERED: CITA40TA4 PO (20:47)
[2017-03-17] MEDS ORDERED: CHOL1TAB41 PO (20:47)
[2017-03-17] MEDS ORDERED: LANTINJ SQ (20:47)
[2017-03-17] MEDS ORDERED: VITA10002 PO (20:47)
[2017-03-17] MEDS ORDERED: MAGN400T2 PO (20:47)
[2017-03-17] MEDS ORDERED: MACR100C2 PO (20:47)
[2017-03-17 20:55] LABS: BASOPHIL # 0.1 TH/MM3 (0-0.2); BASOPHIL % 0.4 % (0.0-2.0); EOSINOPHIL # 0.2 TH/MM3 (0-0.4); EOSINOPHIL % 1.3 % (0.0-4.0); HEMO FLAGS DIFF FINAL; LYMPH % 6.6 % (9.0-44.0); MEAN CELL VOLUME 87.9 FL (80.0-100.0); MEAN CORPUSCULAR HGB CONC 31.8 % (32.0-36.0); MONO % 7.7 % (0.0-8.0); PLATELET COUNT 264 TH/MM3 (150-450); RED BLOOD COUNT 4.66 MIL/MM3 (4.00-5.30); RED CELL DISTRIBUTION WIDTH 18.7 % (11.6-17.2); WHITE BLOOD COUNT 15.5 TH/MM3 (4.0-11.0)
[2017-03-17] MEDS ORDERED: DEXT1CAP5 PO (21:00)
[2017-03-17] MEDS ORDERED: ZANT150T2 PO (21:01)
[2017-03-17 21:04] LABS: APTT (PATIENT) 21.5 SEC (24.3-30.1); INTERNATIONAL NORMALIZED RATIO 1.1 RATIO; PROTHROMBIN TIME - PATIENT 11.8 SEC (9.8-11.6)
[2017-03-17 21:08] LABS: ALT (GPT) 25 U/L (10-53)
[2017-03-17 21:37] LABS: ALKALINE PHOSPHATASE 104 U/L (45-117); ANION GAP 7 MEQ/L (5-15); AST (GOT) 48 U/L (15-37); BLOOD UREA NITROGEN 20 MG/DL (7-18); CHLORIDE 97 MEQ/L (98-107); CREATINE KINASE 125 U/L (26-192); GLOMERULAR FILTRATION RATE 33 ML/MIN (>89); POTASSIUM 5.8 MEQ/L (3.5-5.1); SODIUM (NA) 135 MEQ/L (136-145); TOTAL BILIRUBIN ADULT 0.9 MG/DL (0.2-1.0)
[2017-03-17 22:00] VITALS: BP 176/81; PULSE 68; RESP 18; O2SAT 96
[2017-03-17 22:35] LABS: BLOOD, URINE NEG (NEG); GLUCOSE,URINE NEG (NEG); HYALINE CAST, URINE 13 /lpf (RARE); KETONE, URINE NEG (NEG); MUCUS URINE FEW /lpf (OCC); NITRITE,URINE NEG (NEG); PH, URINE 6.5 (5.0-8.5); URINE COLOR YELLOW (YELLW/STRAW)
[2017-03-17 22:36] LABS: COMMENT (UR) CATH-CULTURE IND; CULTURE IF INDICATED CATH CULTURE IND
[2017-03-17] MEDS ORDERED: LEVA750T9 PO (23:10)
[2017-03-18] VITALS: BP 194/86; PULSE 66; RESP 18; O2SAT 96
[2017-03-18 03:10] VITALS: BP 185/88; PULSE 64; RESP 18; O2SAT 94
--- NOTE | 2017-03-18 17:21 | EKG ---
Date Performed: 03/17/2017 Time Performed: 19:57:09 PTAGE: 72 years EKG: Sinus rhythm POSSIBLE ANTERIOR MYOCARDIAL INFARCTION BORDERLINE ECG NO PREVIOUS TRACING DOCTOR: Ngozi Hebert Interpretating Date/Time 03/18/2017 17:19:08
== END 2017-03-18 07:57 ==
LOC: NEPE 19:46
DX: N30.00 Acute cystitis without hematuria (principal); B95.4 Other streptococcus as the cause of diseases classified elsewhere; J45.909 Unspecified asthma, uncomplicated; E11.9 Type 2 diabetes mellitus without complications; I10 Essential (primary) hypertension; I25.2 Old myocardial infarction; G25.81 Restless legs syndrome; M79.89 Other specified soft tissue disorders; Z79.4 Long term (current) use of insulin; Z79.899 Other long term (current) drug therapy
CPT/HCPCS: 70450; 71010; 80053; 81001; 82550; 83605; 84484; 85025; 85610; 85730; 87086; 93005; 93971; 99285; P9612